=== PATIENT | male | born 1945 | race Caucasian/White ===

== ENCOUNTER 2016-05-19 14:46 | Inpatient (IN) | payer OTHER ==
[2016-05-19 15:15] LABS: BASO% 0.2 % (0.0-0.8); EOS# 0.01 X1000 (0.0-0.7); HEMATOCRIT 49.7 % (42.0-52.0); HEMOGLOBIN 17.2 g/dL (14.0-18.0); IMM GRAN# 0.11 X1000 (0.0-0.04); IMM GRAN% 0.4 % (0.0-0.5); LYMPH% 4.5 % (20.5-51.1); MANUAL DIFF NEEDED? NO; MCH 28.7 PG (27-31); MCHC 34.6 g/dL (33-37); MCV 82.8 FL (81-99); MONO# 1.73 X1000 (0.11-0.59); MPV 10.8 FL (7.4-10.4); NEUT% 87.9 % (42.2-75.2); PLT 275 X1000 (130-400)
[2016-05-19 15:35] LABS: ALBUMIN 3.4 g/dL (3.5-5.0); CALCIUM 10.3 mg/dL (8.8-10.2); TOTAL BILIRUBIN 0.87 mg/dL (0.20-1.00); TOTAL PROTEIN 7.9 g/dL (6.3-8.3)
[2016-05-19 16:08] LABS: URINE CULTURE NEEDED? NO; URINE MICRO REVIEW NEEDED? NO; URINE SOURCE CLEAN CATCH
[2016-05-19 16:16] LABS: BILIRUBIN URINE NEGATIVE (NEGATIVE); BLOOD URINE NEGATIVE (NEGATIVE); COLOR YELLOW; GLUCOSE URINE >1000 mg/dL (NEGATIVE); LEUKOCYTES URINE NEGATIVE (NEGATIVE); NITRITE URINE NEGATIVE (NEGATIVE); PROTEIN URINE TRACE mg/dL (NEGATIVE); SP GRAVITY URINE 1.033; TURBIDITY URINE CLEAR (CLEAR); UROBILINOGEN URINE NORMAL (NORMAL)
[2016-05-19 16:17] LABS: UR EPITHELIAL CELLS <10 /HPF (<10); URINE BACTERIA NEGATIVE /HPF; URINE RBC <10 /HPF (<10); URINE WBC <10 /HPF (<10)
[2016-05-19] MEDS ORDERED: NS 1,000 ML IV ONE (17:49)
[2016-05-19] MEDS ORDERED: ZOFRAN IV ONE (17:50)
[2016-05-19] MEDS ORDERED: MORPHINE IV ONE (17:50)
[2016-05-19] MEDS ORDERED: HUMULIN R IV ONE (17:50)
--- NOTE | 2016-05-19 17:50 | PROVIDER DOCUMENTATION ---
HPI-Abdominal Pain/GI Problem - General Chief Complaint: Abdominal Pain Stated Complaint: n/v/d Time Seen by Provider: 05/19/16 17:28 Allergies/Adverse Reactions: Patient Allergies Allergy/AdvReac Type Severity Reaction Status Date / Time acetaminophen [From Lortab] Allergy Unknown Verified 05/19/16 18:19 hydrocodone bitartrate * Allergy Unknown Verified 05/19/16 18:19 [From Lortab] codeine AdvReac NAUSEA Verified 05/19/16 18:19 Home Medications: Home Medication List Medication Instructions Recorded Confirmed Last Taken Type Aspirin [Aspir-Low] 81 mg PO DAILY 05/19/16 05/19/16 05/18/16 20:00 History Docusate Sodium [Colace] 100 mg PO DAILY 05/19/16 05/19/16 05/18/16 20:00 History Metoprolol [Lopressor] 25 mg PO DAILY 05/19/16 05/19/16 05/18/16 20:00 History [place]-3 Fatty Acids/Fish Oil [Fish 1 each PO DAILY 05/19/16 05/19/16 05/18/16 20 :00 History Oil 1,000 mg Capsule] ROSUVAstatin [Crestor] 20 mg PO DAILY 05/19/16 05/19/16 05/18/16 20:00 History - History of Present Illness-ABD Nature of Presenting Problems: Pt states that for the last few days after having a viral illness with N/V/D he started having abd pain with "gas and bloating" until today he started having more and more abd distention. 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 He has CAD s/p CABG. He also has HTN, Hyperlipidema, and Dm type 2 that he does not treat. Review of Systems - Adult - REVIEW OF SYSTEMS - ADULT Constitutional: reports: no symptoms reported. denies: chills, fever, fatique, night sweats, weight gain Eyes: reports: no symptoms reported. denies: discharge, dry eyes, decreased vision, double vision, eye pain, redness Ears, Nose, Mouth & Throat: reports: no symptoms reported. denies: ear discharge, hearing loss, tinnitus, epistaxis, nose pain, loose teeth, hoarseness , throat swelling Cardiovascular: reports: no symptoms reported. denies: chest pain, edema, heart murmur, irregular heart rate, palpitations, poor circulation, syncope Respiratory: reports: no symptoms reported. denies: chronic cough, cough, dyspnea on exertion, excessive sputum production, hemoptysis, shortness of breath Gastrointestinal: reports: see HPI, abdominal pain, diarrhea, nausea, vomiting Genitourinary: reports: no symptoms reported. denies: dysuria, discharge, frequency, flank pain, hematuria, hesitency, incontinence, urinary retention, urgency Musculoskeletal: reports: no symptoms reported. denies: bone pain, back pain, frequent leg cramps, joint pain, muscle aches, muscle weakness, neck pain Integumentary: reports: no symptoms reported. denies: hives, itching, nail changes, rash, skin sores/ulcer, skin thickening Neurological: reports: no symptoms reported. denies: ataxia, dizziness/vertigo , headache/migraines, loss of balance, paresthesia, slurred speech, syncope, tremors Psychiatric: reports: no symptoms reported. denies: anxiety, alcohol/drug dependence, emotional problems, panic attacks, suicidal thoughts Endocrine: reports: no symptoms reported. denies: change in skin pigment, excessive sweating, goiter, heat intolerance, increased thirst, polyuria Hematologic/Lymphatic: reports: no symptoms reported. denies: blood clots, easy bruising, lymphedema, transfusions Allergic/Immunologic: reports: no symptoms reported. denies: allergic reactions , allergic rhinitis, asthma, food allergy, frequent infections, hay fever, hives , positive PPD, urticaria All Other Systems: Reviewed and Negative Past History - Adult - PAST MEDICAL HISTORY-ADULT Review of Records: reports: Old Records Reviewed, Nursing Assessment Review, Medications Reviewed, Social history reviewed & non-contributory. Major Childhood Illnesses: reports: denies history Cardiovascular: reports: CAD, HTN, hyperlipidemia Respiratory: reports: denies history Gastrointestinal: reports: denies history Obstetrical/Gynecological: reports: denies history Genitourinary: reports: denies history Musculoskeletal: reports: denies history Neurological: reports: denies history Endocrine/Immune: reports: Diabetes Diabetes Type: Type 2 Other Conditions: reports: denies history - PRIOR SURGERIES/PROCEDURES Surgical/Procedure History: reports: CABG - PRIOR HOSPITALIZATIONS Prior Hospitalizations: reports: none - IMMUNIZATION STATUS Childhood Immunizations: See Nurse Assessment Flu Vaccine: See Nurse Assessment - FAMILY HISTORY Family History: reviewed, not pertinent - SOCIAL HISTORY Smoking: denies Substance Use: none/never Alcohol Use Frequency: never Living Situation: family Physical Exam-General - PHYSICAL EXAM-ADULT Initial Vital Signs Reviewed: Yes - CONSTITUTIONAL General Appearance: alert, moderate distress - EYES Eyes: PERRL/EOMI, pink conjunctivae - HEAD, EARS, NOSE, MOUTH & THROAT HENMT: normocephalic/atraumatic, moist mucous membranes, normal ENT inspection - NECK Neck: non-tender, full range of motion, supple - RESPIRATORY Respiratory: chest non-tender, lungs clear, normal breath sounds - CARDIOVASCULAR Cardiovascular: normal peripheral pulses, regular rate, rhythm - GASTROINTESTINAL (ABDOMEN) Abdominal Exam: abnormal bowel sounds, distended, guarding, tenderness. 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, grossly normal - PSYCHIATRIC Psych/Mental Status: normal mood/affect, normal thought content, normal thought process, oriented x 3 Progress - PLAN OF CARE/RESULTS Progress/Plan/Lab Results: Laboratory Tests 05/19/16 05/19/16 05/19/16 14:54 14:54 14:54 WBC 24.54 H RBC 6.00 Hgb 17.2 Hct 49.7 MCV 82.8 MCH 28.7 MCHC 34.6 RDW Std Deviation 12.9 Plt Count 275 MPV 10.8 H Immature Gran % (Auto) 0.4 Neut % (Auto) 87.9 H Lymph % (Auto) 4.5 L Levy % (Auto) 7.0 Eos % (Auto) 0.0 Baso % (Auto) 0.2 Immature Gran # (Auto) 0.11 H Neut # (Auto) 21.55 H Lymph # (Auto) 1.10 L Levy # (Auto) 1.73 H Eos # (Auto) 0.01 Baso # (Auto) 0.04 Sodium 125 L Potassium 5.0 Chloride 83 L Carbon Dioxide 23 L Anion Gap 19 BUN 13 Creatinine 1.2 Estimated GFR/1.73 m2 60 BUN/Creatinine Ratio 11 Glucose 521 H* Calculated Osmolality 275 Calcium 10.3 H Total Bilirubin 0.87 AST 10 ALT 13 Alkaline Phosphatase 81 Total Protein 7.9 Albumin 3.4 L Globulin 4.5 Albumin/Globulin Ratio 0.8 Amylase 15 L Lipase 15 Plasma Lactate Urine Source Urine Color Urine Turbidity Urine pH Ur Specific [place] Urine Protein Ur Glucose (Stick) Ur Ketones (Stick) Urine Blood Urine Nitrite Urine Bilirubin Urobilinogen Dipstick Urine Leukocytes Urine WBC (Auto) Urine RBC (Auto) U Epithel Cells (Auto) Urine Bacteria (Auto) Acetone Level SMALL A 05/19/16 05/19/16 15:54 18:22 WBC RBC Hgb Hct MCV MCH MCHC RDW Std Deviation Plt Count MPV Immature Gran % (Auto) Neut % (Auto) Lymph % (Auto) Levy % (Auto) Eos % (Auto) Baso % (Auto) Immature Gran # (Auto) Neut # (Auto) Lymph # (Auto) Levy # (Auto) Eos # (Auto) Baso # (Auto) Sodium Potassium Chloride Carbon Dioxide Anion Gap BUN Creatinine Estimated GFR/1.73 m2 BUN/Creatinine Ratio Glucose Calculated Osmolality Calcium Total Bilirubin AST ALT Alkaline Phosphatase Total Protein Albumin Globulin Albumin/Globulin Ratio Amylase Lipase Plasma Lactate 2.0 Urine Source CLEAN CATCH Urine Color YELLOW Urine Turbidity CLEAR Urine pH 5.0 Ur Specific [place] 1.033 Urine Protein TRACE A Ur Glucose (Stick) >1000 A Ur Ketones (Stick) 20 A Urine Blood NEGATIVE Urine Nitrite NEGATIVE Urine Bilirubin NEGATIVE Urobilinogen Dipstick NORMAL Urine Leukocytes NEGATIVE Urine WBC (Auto) <10 Urine RBC (Auto) <10 U Epithel Cells (Auto) <10 Urine Bacteria (Auto) NEGATIVE Acetone Level Orders Category Date Time Status FSBS [Finger Stick Blood Sugar (ED)] DIRECTED Care 05/19/16 19:07 Active IV Insertion ORDERED Care 05/19/16 17:49 Active ABDOMEN/PELVIS W/CONTRAST [CT] Stat Exams 05/19/16 17:44 Ordered flat [FLAT/UPRIGHT ABD/1 VIEW CHEST] [RAD] Stat Exams 05/19/16 17:17 Draft ACETONE SERUM [CHEM] Stat Lab 05/19/16 14:54 Completed AMYLASE [CHEM] Stat Lab 05/19/16 14:54 Completed BLOOD CULTURE [BLDCUL] Stat Lab 05/19/16 18:20 Results CBC WITH ELECTRONIC DIFF [HEME] Stat Lab 05/19/16 14:54 Completed COMPREHENSIVE METABOLIC PANEL [CHEM] Stat Lab 05/19/16 14:54 Completed LACTATE, PLASMA [CHEM] Stat Lab 05/19/16 18:22 Completed LIPASE [CHEM] Stat Lab 05/19/16 14:54 Completed UA Reflex [URINALYSIS W/POSS RFLX CULT] [URINALYSIS] Lab 05/19/16 15:54 Completed Stat 0.9% Sodium Chloride Inj [Ns] 1,000 ml Med 05/19/16 17:49 Discontinued IV 999 mls/hr Insulin Human Regular [Humulin R] Med 05/19/16 17:50 Discontinued 8 unit IV NOW ONE Morphine Med 05/19/16 17:50 Discontinued 2 mg IV NOW ONE Ondansetron [Zofran] Med 05/19/16 17:50 Discontinued 4 mg IV NOW ONE Vital Signs - 24 hr 05/19/16 14:53 Temperature 97.6 F Pulse Rate 106 H Respiratory 18 Rate Blood Pressure 137/82 O2 Sat by Pulse 96 Oximetry - XRAY 1 XRAY Study: Chest, Abdomen XRAY Interpretation: chest nad, abd distened large bowel possible obstruction ( hcb) - CT/MRI 1 CT Study: Abdomen Impression: Abnormal, See EMR Report CT Results: mutilple liver masses, choelithisis, sigmoid mass, sigmoid perf (rad ) - CONSULTS/PCP/HOSPITALIST Notification #1 *Consult/PCP/Hospitalist*: hui Time Discussed: 20:31 Consult Disposition: Will see in ED, Admit #2 Consult: dr salgado Time Discussed: 20:03 (discuss masses with family and see if they want to have surgery. Admit to hospitalists ) Reason/Comments: spoke to dr salgado again at 2015 patient would like surgery Consult Disposition: other Departure - Departure Time of Disposition Order: 19:36 DIAGNOSIS: SBO (small bowel obstruction), Liver mass, Bowel perforation Cholelithiasis Qualifiers: Cholelithiasis location: gallbladder Cholecystitis presence: without cholecystitis Biliary obstruction: without biliary obstruction Qualified Code(s) : K80.20 - Calculus of gallbladder without cholecystitis without obstruction Disposition: ADMITTED INPATIENT 09 Certified Medical Emergency: Emergent Condition: Good Additional Instructions: ED Follow Up Instructions: You have been treated by a care provider in the Emergency Department. These instructions are being provided to you so you can have an understanding of how to care for yourself upon discharge. Upon discharge from the Emergency Department, you are responsible for making arrangements for follow-up care by a physician of your choice. Take all prescribed medications as directed. Return to the Emergency Department immediately for any new or worsening symptoms. You may call the Physician Referral phone number at [phone] to obtain a list of Physicians who are taking new patients. ED Follow Up Instructions: You have been treated by a care provider in the Emergency Department. These instructions are being provided to you so you can have an understanding of how to care for yourself upon discharge. Upon discharge from the Emergency Department, you are responsible for making arrangements for follow-up care by a physician of your choice. Take all prescribed medications as directed. Return to the Emergency Department immediately for any new or worsening symptoms. You may call the Physician Referral phone number at [phone] to obtain a list of Physicians who are taking new patients. Referrals: Celena Nichols [Primary Care Provider] - Attestation - Physician/ JASON Attestation Patient care was provided by Advanced Practice Provider:: Yes Advanced Practice Provider:: Selvin Temple Advanced Practice Provider documentation review:: The Mid-level provider documentation, treatment plan and medical decision making was reviewed by the physician who agrees with all treatment and medical decision making by the MLP.
--- NOTE | 2016-05-19 19:27 | Diag Imaging Result Document ---
PROCEDURE NAME: FLAT/UPRIGHT ABD/1 VIEW CHEST - 05/19/2016 FLAT AND UPRIGHT ABDOMEN: FINDINGS: There is a gaseous dilatation of small bowel loops in the left upper quadrant. There is gas and stool in the descending colon. There is no evidence of organomegaly or mass. IMPRESSION: Ileus versus small-bowel obstruction. PA CHEST: FINDINGS: There are sternotomy wires. There is no evidence of acute cardiac or pulmonary disease. There are no previous studies. IMPRESSION: No evidence of acute disease.
[2016-05-19] MEDS ORDERED: ZOSYN 3.375 GM/NS 50 ML IV ONE (19:47)
[2016-05-19] MEDS ORDERED: FLAGYL 500 MG/NS 100 ML IV ONE (19:47)
[2016-05-19] MEDS ORDERED: MORPHINE IV PRN (20:30)
[2016-05-19] MEDS: HUMALOG SUBQ SCH (21:25)
[2016-05-20] MEDS: HUMALOG SUBQ SCH ×6 (00:30→20:19)
[2016-05-20] MEDS ORDERED: NS 1,000 ML IV ONE (01:11)
[2016-05-20] MEDS ORDERED: PROTONIX IV SCH (01:15)
[2016-05-20] MEDS ORDERED: TYLENOL PO PRN (02:13)
[2016-05-20 03:45] LABS: HEMOGLOBIN A1C 10.8 % (4.8-6.0)
[2016-05-20 04:06] LABS: INR 1.18; PROTIME 12.5 Seconds (9.2-11.7)
[2016-05-20] MEDS: ZOSYN 3.375 GM/NS 50 ML IV SCH ×4 (05:27→20:19)
--- NOTE | 2016-05-20 05:54 | HISTORY AND PHYSICAL ---
PRIMARY CARE PROVIDER: Dr. Celena Nichols. CHIEF COMPLAINT: Abdominal pain. HISTORY OF PRESENT ILLNESS: Mr. Kelly is a 70-year-old male who has a past medical history of diabetes mellitus type 2, hypertension, and coronary artery disease status post coronary artery bypass graft. The patient and his , who is at bedside, report that on he began having abdominal pain which was accompanied by nausea, vomiting, and diarrhea. She reports that he has had a few episodes of vomiting each day since, though only had diarrhea on and has not had any further episodes of this or any bowel movements since then. The patient denies any hematemesis or melena. The patient denies any body aches or chills, though did report fever earlier in the day on Saturday. The patient also complains of indigestion. He also states that it is difficult for him to take a deep breath due to his abdominal pain and distention. He denies any headache, dizziness, chest pain, dysuria or urinary frequency, or pain, numbness or tingling in his extremities. The patient reports that he did have cardiac stents placed in 2003 and then underwent a coronary artery bypass graft in 2011. 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 Garcia at [facility], though the patient reports that he probably has not seen him since 2014, and that Dr. Nichols at this time has been writing his prescription medications. Upon evaluation in the ER, the patient was found to have abdominal pain and a distended abdomen which had generalized tenderness to the touch. He had an elevated white blood cell count of 24.54. He was also found to have an elevated blood glucose level of 521. A CT abdomen and pelvis was performed which did show stricture and probable mucosal mass in the sigmoid colon. There were paracecal abscesses and a perforation in the right lower quadrant which is possibly the sigmoid colon. There is also a partial small bowel obstruction as well as multiple liver masses. Dr. Funes with Surgery was consulted by MONICA Babin, in the ER, and he does plan to take the patient for surgery in the morning. REVIEW OF SYSTEMS: A 14-point review of systems was conducted with the patient and all were negative except for pertinent positives mentioned in the above HPI. PAST MEDICAL HISTORY: 1. Coronary artery disease status post coronary artery bypass graft in 2011. The patient last followed up with his propeller tester, Dr. Garcia at [facility], in 2014. 2. Hypertension. 3. Diabetes mellitus type 2. 4. Dyslipidemia. PAST SURGICAL HISTORY: 1. Cardiac stent placement in 2003. 2. Coronary artery bypass graft in 2011. 3. Left foot surgery in 2008. 4. Right carotid endarterectomy. 5. Bilateral cataract surgery. SOCIAL HISTORY: The patient is a former smoker. He reports that he smoked 1 pack per day for approximately 27 years though quit smoking 28 years ago. The patient did report that he did occasionally drink alcohol in the past, though has not had any alcohol in 28 years. He denies any illicit drug use. He lives at home with his who is present at bedside. FAMILY HISTORY: Positive for prostate cancer in his father, lung cancer in his mother, lung cancer in his brother. He has a sister who has a history of dementia. He also reports that all of his siblings have diabetes mellitus as well. ALLERGIES: The patient reports allergies to hydrocodone and codeine. HOME MEDICATIONS: 1. Aspirin 81 mg p.o. daily. 2. Colace 100 mg p.o. daily. 3. Metoprolol 25 mg p.o. daily. 4. [place] 3 fatty acids, fish oils 1000 mg capsule 1 p.o. daily. 5. Crestor 20 mg p.o. daily. DIAGNOSTIC DATA AND LABORATORY RESULTS: White blood cell count 24.54, hemoglobin 17.2, hematocrit 49.7, platelet count 275. Sodium 125, potassium 5, chloride 83, bicarb 23, anion gap 19, BUN 13, creatinine 1.2, GFR 60, glucose 521, calcium 10.3. Liver function tests are within normal limits. Amylase 15, lipase 15. Plasma lactate 2. Serum acetone did have a small amount noted. Urinalysis was obtained via clean catch, was positive for trace protein, greater than 1000 glucose, and ketones. It was negative for blood, nitrites, leukocytes, white blood cells or bacteria. Flat and upright abdomen with 1-view chest showed ileus versus small bowel obstruction. Chest showed no evidence of acute disease. CT abdomen and pelvis showed multiple liver masses, stricture, and probable mucosal mass in the sigmoid, paracecal abscesses. There is also perforation of the bowel in the right lower quadrant. This is possibly the sigmoid colon. Noted also that appendicitis was doubtful and just may be related to adjacent inflammation. There was also noted a small bowel obstruction due to inflammatory changes around the distal ileum. Pending diagnostic studies at this time are blood cultures, EKG, PT, PTT, hemoglobin A1c, and type and screen. PHYSICAL EXAMINATION: VITAL SIGNS: Temperature 97.6. Heart rate 103. Respirations 20. Blood pressure is 133/83. Oxygen saturation is 96% nasal cannula at 2 L. GENERAL: The patient is a well-nourished, well-developed, pleasant, 70-year-old male who is resting in the ER stretcher. He was in no acute distress. He was awake and alert, able to answer all questions appropriately. HEENT: Head is atraumatic, normocephalic. Pupils are equal, round, reactive to light, 3 mm bilaterally, and brisk. Conjunctivae pink. Oral mucosa is slightly dry. Oropharynx is clear. NECK: Supple. Trachea midline. No JVD noted. No carotid bruits noted upon auscultation bilaterally. CARDIOVASCULAR: Normal S1, S2. No murmurs, gallops or rubs appreciated. Regular rate and rhythm. PULMONARY: The patient has symmetrical chest expansion bilaterally. Lung sounds are clear bilaterally in full lung velasquez. ABDOMEN: The abdomen is firm, distended, and the patient reports generalized tenderness upon palpation and even with very light touch such as placing a stethoscope on his abdomen. Bowel sounds were present though were hypoactive. EXTREMITIES: No cyanosis, clubbing or edema noted. Pulse, motor and sensory were intact in all extremities as well. Pedal pulses as well as radial pulses were 3+ bilaterally. INTEGUMENTARY: The patient's skin is pink, warm, dry, and intact. Capillary refill was less than 3. NEUROLOGIC: Patient alert and oriented to person, place, time and situation. Cranial nerves II through XII are grossly intact. ASSESSMENT AND PLAN: 1. Sigmoid mass with perforation and paracecal abscesses. 2. Partial small bowel obstruction. 3. Multiple liver masses. For 1 through 3, we have consulted Dr. Funes with Surgery, and he does plan to take the patient for surgery in the morning. Blood cultures have been obtained. We will place the patient on Zosyn 3.375 g IV every 6 hours. An NG tube has been placed to low intermittent suction. The patient will remain n.p.o. We will provide the patient with gentle fluid resuscitation at 100 mL of normal saline per hour. He did previously receive a 1 L normal saline bolus in the ER. We have also placed consults for Dr. Yoon with Oncology as well as Dr. Downing with Gastroenterology and appreciate their evaluation and further recommendations as well. We will continue to follow this patient very closely. 4. Leukocytosis. This is likely secondary to the patient's bowel perforation. We will continue with treatment as mentioned above and continue to follow. 5. Uncontrolled diabetes mellitus type 2. We have placed the patient in a sliding scale insulin Lispro. Will closely monitor his fingerstick blood sugars. We have placed an order for a hemoglobin A1c and are awaiting those results at this time. 6. Coronary artery disease status post coronary artery bypass graft. At this time we will hold the patient's aspirin due to him having surgery in the morning, though once he is able to tolerate oral medications, we will continue his aspirin as well as his Crestor and fish oil. 7. Hypertension. Will continue the patient's metoprolol 25 mg p.o. daily. Will continue to follow. The patient will be placed in the ICU with telemetry. He will have vital signs per ICU protocol. We will do strict intake and output every 8 hours. DVT prophylaxis will be provided with SCDs. GI prophylaxis with Protonix 40 mg IV every 24 hours. We will do every 4 hour neuro checks. Will repeat a CBC, CMP, and magnesium in the morning. Further orders and recommendations pending hospital course, diagnostic studies, and physician evaluation. CRITICAL CARE TIME WITH THIS PATIENT: Approximately 45 minutes. Dictated by TIARRA Duffy for Suhas Newell MD
[2016-05-20 06:10] LABS: BASO% 0.1 % (0.0-0.8); EOS# 0.07 X1000 (0.0-0.7); EOS% 0.4 % (0.0-10.0); HEMATOCRIT 45.8 % (42.0-52.0); HEMOGLOBIN 15.8 g/dL (14.0-18.0); IMM GRAN# 0.06 X1000 (0.0-0.04); IMM GRAN% 0.3 % (0.0-0.5); LYMPH# 0.75 X1000 (1.2-3.4); LYMPH% 4.2 % (20.5-51.1); MANUAL DIFF NEEDED? YES; MCH 28.7 PG (27-31); MCHC 34.5 g/dL (33-37); MCV 83.3 FL (81-99); MONO# 1.42 X1000 (0.11-0.59); MONO% 7.9 % (1.7-9.3); MPV 10.9 FL (7.4-10.4); NEUT% 87.1 % (42.2-75.2); PLT 224 X1000 (130-400)
[2016-05-20 06:46] LABS: AGAP 16; ALBUMIN 3.1 g/dL (3.5-5.0); ALKALINE PHOSPHATASE 73 U/L (32-122); BUN 14 mg/dL (8-22); CALCIUM 9.2 mg/dL (8.8-10.2); CHLORIDE 92 mmol/L (98-107); COSMO 271; GOT 10 U/L (10-34); GPT 9 U/L (10-44); POTASSIUM 3.8 mmol/L (3.5-5.1); SODIUM 131 mmol/L (136-145); TCO2 23 mmol/L (25-35); TOTAL BILIRUBIN 0.51 mg/dL (0.20-1.00)
[2016-05-20 07:08] LABS: URINE CULTURE NEEDED? NO; URINE SOURCE CATH
[2016-05-20 07:13] LABS: LYMPHS 3 % (21-51); MONO 2 % (1-9)
[2016-05-20] MEDS ORDERED: LABETALOL IV PRN (07:41)
[2016-05-20] MEDS ORDERED: SODIUM CHLORIDE 0.9% INJ SCH (07:45)
--- NOTE | 2016-05-20 07:48 | CONSULTATION ---
DATE OF CONSULTATION: 05/20/2016 REQUESTING PHYSICIAN: Emergency department consult concerning colon cancer with possible perforation. HISTORY OF PRESENT ILLNESS: This is a 70-year-old male who had been feeling under the weather for the last several days. Thought he had a viral illness with nausea, vomiting, and diarrhea. Started developing abdominal pain with gas and bloating. The abdomen became more distended and more tender. He reported it as his bilateral lower quadrants and intense in severity. He came into the emergency department and had a CT scan done that showed potential for perforated colon cancer with metastatic lesions to the liver. There is a significant amount of inflammation in the right lower quadrant. He has also noticed that his blood glucose was in the 500s. Given this, he had he was admitted by the hospitalist service. Resuscitation had been started to correct his hyperglycemia. I was asked to evaluate the patient given his findings on CT scan and physical exam. The patient is now still reporting tenderness in the bilateral lower quadrants. It appears that the right is more intense than the left. His blood sugar has improved since last night. It is now in the 200s. PAST MEDICAL HISTORY: Includes hypertension, hyperlipidemia, diabetes mellitus type 2, coronary artery disease. PAST SURGICAL HISTORY: Includes coronary artery bypass. HOME MEDICATIONS: Include aspirin, Colace, Lopressor, fish oil, Crestor. ALLERGIES: Include Tylenol, Lortab, codeine. SOCIAL HISTORY: Denies smoking, alcohol, or illicit drugs. FAMILY HISTORY: Reviewed with the patient and noncontributory. REVIEW OF SYSTEMS: A full 10 point review of systems obtained. Negative except as specified in the HPI. PHYSICAL EXAMINATION: Vital Signs: The patient is currently afebrile. Temperature 97.5 degrees, pulse is mildly tachycardic at 101, respiratory rate nonlabored at 20, blood pressure 144/87, O2 saturation 97% on 3 L nasal cannula. General: No acute distress but appears uncomfortable, male, looks stated age. HEENT: Normocephalic, atraumatic. Pupils equal, round, reactive to light. Mucous membranes moist. Oropharynx benign. Neck: Supple. Trachea midline. Cardiovascular: Regular rate and rhythm except mildly tachycardic. Lungs: Grossly clear. Abdomen: Mildly distended. Tender to palpation bilateral lower quadrants with some rebound tenderness. Localized peritonitis in the bilateral lower quadrants. It appears the right side is more prominent than the left. Extremities: Moves all extremities well. Neurologic: Grossly intact. Skin: No signs of jaundice. Vascular: All extremities perfused. LABORATORY: White blood cell count is 24.5, hematocrit is 49.7, platelet count 275,000. INR is 1.18. His most recent blood sugar on fingerstick was in the 200s. His sodium was 125, chloride is 83, bicarb 23, BUN 13, creatinine 1.2. A CEA is currently pending. He has repeat labs that are pending also at this time. CT scan independently reviewed and radiology report reviewed. There does appear to be lesions noted in the liver. The significance of these is unknown but there is a possibility these represent metastatic disease. There also appears to be a potential for sigmoid mass with sigmoid perforation per the radiology report. There is a dense inflammatory process occurring in the right lower quadrant. There appears to be diverticulosis present in the sigmoid colon. ASSESSMENT AND PLAN: This is a 70-year-old male with abdominal pain and potential for perforated metastatic cancer. 1. Multiple medical comorbidities. At this time patient's blood glucose has been improved. He is still undergoing resuscitation. His hyperglycemia has improved from 500 to 200 which is a more acceptable range for potential surgery. He is being managed by the hospitalist service. His repeat labs are pending but we will plan on surgical intervention this morning. 2. Possible perforated metastatic colon cancer. At this time patient has never had a colonoscopy and he has a CEA level that is pending. Given his physical exam findings will likely need surgical intervention. Discussed that with the family. Discussed that we could likely not place his intestines back together and that he would likely require an ostomy. This was discussed with the family and they voiced understanding. We will plan on surgical intervention. All of this was discussed with the family.
[2016-05-20 08:09] LABS: BILIRUBIN URINE NEGATIVE (NEGATIVE); BLOOD URINE TRACE (NEGATIVE); COLOR YELLOW; GLUCOSE URINE >1000 mg/dL (NEGATIVE); LEUKOCYTES URINE NEGATIVE (NEGATIVE); NITRITE URINE NEGATIVE (NEGATIVE); PH URINE 5.5; PROTEIN URINE 70 mg/dL (NEGATIVE); SP GRAVITY URINE 1.045; TURBIDITY URINE CLEAR (CLEAR); URINE MICRO REVIEW NEEDED? YES; UROBILINOGEN URINE NORMAL (NORMAL)
[2016-05-20 08:34] LABS: UR EPITHELIAL CELLS <10 /HPF (<10); URINE BACTERIA NEGATIVE /HPF; URINE RBC <10 /HPF (<10); URINE WBC <10 /HPF (<10)
[2016-05-20 08:36] LABS: URINE CASTS NONE SEEN; URINE CRYSTALS NONE SEEN; URINE SMALL ROUND CELLS NONE SEEN
[2016-05-20] MEDS ORDERED: LOPRESSOR PO SCH (09:00)
--- NOTE | 2016-05-20 10:06 | Diag Imaging Result Document ---
PROCEDURE NAME: CHEST/ABD TUBE PLACEMENT - 05/20/2016 AP PORTABLE CHEST AND ABDOMEN FOR NG TUBE PLACEMENT, 05/20/2016 AT 0215 HOURS: FINDINGS: The NG tube tip is in the left upper quadrant presumably in the fundus of the stomach. There are several loops of distended small bowel in the left mid and upper abdomen. The stomach is not distended. The degree of gaseous dilatation of the proximal small bowel has diminished somewhat since the previous study of 05/19/2016. IMPRESSION: NG tube in stomach.
[2016-05-20] MEDS ORDERED: MERREM 1 GM in NS 50 ML IV SCH (11:00)
--- NOTE | 2016-05-20 11:08 | Diag Imaging Result Document ---
PROCEDURE NAME: ABDOMEN/PELVIS W/CONTRAST - 05/19/2016 CT OF THE ABDOMEN WITH INTRAVENOUS CONTRAST: FINDINGS: There are multiple subcentimeter stones in the gallbladder. There are multiple masses in the liver with enhancement in their margins and possibly some central necrosis. This is particularly evident in one of the masses in the inferior right lobe where there is some dimpling of the surface of the liver. There is a mass in the left lobe which exceeds 4.1 cm in diameter. There are calcifications in the proximal renal arteries and superior mesenteric artery. There is no evidence of significant aneurysm and otherwise the mesenteric vessels are patent. There are multiple cortical cysts in both kidneys. There is no evidence of hydronephrosis. There may be small caliceal stones in the lower portions of both collecting systems. The adrenal glands are not enlarged. The pancreas is unremarkable in appearance. The spleen is not enlarged. There is some stool throughout the colon. There are multiple loops of small bowel proximally which are distended with gas and fluid. There is a 12-mm aortocaval node on image 68 of the portal venous series. CT OF THE PELVIS WITH INTRAVENOUS CONTRAST: FINDINGS: There are stranding inflammatory changes surrounding the cecum with some small amounts of fluid in the lower pericolic gutter. There is a fluid collection seen lateral to the cecum which is fairly homogeneous in appearance with a CT density of 17 Hounsfield units measuring 2.5 cm in diameter. The appendix is slightly over 7 mm in diameter distally. There is a collection of gas and fluid present inferomedial to the cecum measuring at least 4.3 cm transversely with a short axis dimension of 17 mm. The distal small bowel is normal in caliber. The proximity of the abscesses to the distal ileum is probably responsible for focal ileus producing the dilatation of the more proximal jejunal loops. There is diverticulosis in the sigmoid colon. The possibility of diverticulitis cannot be entirely excluded, however, there is an area of apparent mucosal thickening best seen between images 115 and 122 which is highly suspicious for mucosal thickening and neoplastic disease particularly in view of findings in the liver. The urinary bladder is somewhat distended. There is free fluid in the rectovesical pouch. This is relatively low in CT density being less than 12 Hounsfield units. There are some spondylotic changes present in the lumbar and thoracic spine. There has been sternotomy. IMPRESSION: 1. Metastatic disease in the liver. 2. Abscesses in the area around the cecum as described. The possibility of appendicitis cannot be entirely excluded, however, it is more likely that this is produced by focal perforation of the distal sigmoid mass. 3. Cholelithiasis.
[2016-05-20] MEDS ORDERED: NS 1,000 ML IV SCH (11:30)
[2016-05-20] MEDS ORDERED: NARCAN IV PRN (11:43)
[2016-05-20] MEDS: MORPHINE PCA ONE ×2 (11:50→11:54)
[2016-05-20] MEDS: LR 1,000 ML IV SCH ×3 (12:12→20:18)
[2016-05-20] MEDS: PROTONIX IV SCH (12:23)
--- NOTE | 2016-05-20 17:27 | CONSULTATION ---
DATE OF CONSULTATION: 05/20/2016 REQUESTING PHYSICIAN: Patient seen in consultation at the request of Dr. Timoteo Funes. REASON FOR CONSULTATION: Metastatic colorectal cancer. HPI: This is a 70 -year-old gentleman who presented to the emergency room with abdominal pain approximately 3-4 days duration accompanied by nausea, vomiting and diarrhea. Abdomen was notably more distended and he was admitted to the emergency room where he was found to have an area of suspected perforation. He was taken to the operating room and underwent exploratory laparotomy followed by complete colectomy and liver biopsy with end ileostomy placement earlier this morning by Dr. Funes. PAST MEDICAL HISTORY: Significant for coronary artery disease, hypertension, diabetes, hyperlipidemia, carotid artery disease, cataracts. PAST SURGICAL HISTORY: Cardiac stent 2003, coronary artery bypass grafting 2011, right carotid endarterectomy, bilateral cataracts and left foot surgery 2008. SOCIAL HISTORY: One pack per day for 25 years. Quit smoking more than 25 years ago. Occasional alcohol but none more than 25 years. Lives with his . Denies illicit drug use. FAMILY MEDICAL HISTORY: Dad with prostate cancer, mom with lung cancer, brother with lung cancer, sister with dementia, positive family history for diabetes. ALLERGIES AND MEDICATIONS: Reviewed per the chart. REVIEW OF SYSTEMS: Difficult to obtain. Patient sedated from recent procedure. Obtained via the chart and his . PHYSICAL EXAMINATION: Vital signs: At the time of consultation temperature 97.5 degrees, pulse 102, respiratory rate 16, O2 saturation 95% on 2 L, blood pressure 165/93. General: This is a elderly man in no acute distress. ENT: NG tube is in place. Sclerae anicteric. Oropharynx is dry. Cardiovascular: Tachycardic but regular rhythm. Normal S1, S2. No murmurs, rubs, or gallops. Pulmonary: Lungs clear auscultation bilaterally without wheezes, rales, rhonchi . GI: Abdomen soft, nontender, moderately distended with bandage in place. Extremities: No clubbing, cyanosis, edema 2+ pulses x4. Neuro: Patient is alert and oriented to name, responds to voice and touch but is groggy postoperative stay. LABORATORY DATA: White count 17.96, hemoglobin 15.8, platelet count 224,000 with 87 neutrophils, 4% lymphocytes, 8% monocytes. Sodium 131, potassium 3.8, chloride 92, bicarb 23, BUN 14, creatinine 0.7, glucose 244, calcium 9.2, total bilirubin 0.51, AST 10, ALT 9, alkaline phosphatase 73, albumin 3.1. Urinalysis positive glucose, trace blood, acetone small positive. INR 1.18. CEA pending. IMAGING: Abdominal x-ray on 05/19/2016 showed no acute disease. Abdominal and pelvic CT on 05/19/2016 showed multiple masses in the liver with enhancement in their margins and possibly some central necrosis. Mass in the left lobe of the liver exceeds 4.1 cm in diameter. Small caliceal stones in both collecting systems. Multiple loops of small bowel proximally which were distended with gas and fluid. There is a 12 mm aortocaval node. Stranding inflammatory changes are seen around the cecum with small amount of fluid in the lower pericolic gutter. There is homogeneous fluid collection lateral to the cecum measuring 2.5 cm in diameter. There is collection of gas and fluid per the inferior medial to the cecum measuring at least 4.3 cm x 1.7 cm. The proximity of the abscess to the distal ileum was probably responsible for focal ileus producing the dilation of the more proximal jejunal loops. There is sigmoid colon diverticulosis. There is an area of apparent mucosal thickening highly suspicious for neoplastic disease as well. There is free fluid in the rectovesical pouch. Cholelithiasis. ASSESSMENT/PLAN: 1. Metastatic colorectal cancer: We will follow up on pathology and CEA results to confirm what is suspected to be metastatic liver disease from colorectal cancer primary. He is status post complete colectomy and end ileostomy placement and ostomy placement. Will discuss palliative chemotherapy once he recuperates from his recent surgery. 2. Diabetes: He will be monitored per hospitalist with close sugar control in the perioperative period. 3. Coronary artery disease: No evidence of cardiac issues currently. Monitor closely in the postoperative setting. 4. Hyponatremia: Likely related to his hyperglycemia. Monitor with treatment of his elevated blood sugars.
[2016-05-20] MEDS ORDERED: FENTANYL ONE ×2 (18:10→19:09)
[2016-05-20] MEDS ORDERED: DIPRIVAN 1% ONE (19:09)
[2016-05-21] MEDS: HUMALOG SUBQ SCH ×6 (00:33→20:13)
[2016-05-21] MEDS: PROTONIX IV SCH ×2 (00:34→13:54)
--- NOTE | 2016-05-21 02:36 | CONSULTATION ---
DATE OF CONSULTATION: 05/20/2016 CONCLUSION: The patient is status post colectomy and formation of an ostomy thought to be secondary to a perforated sigmoid colon cancer with intraabdominal abscesses and liver metastatic disease. RECOMMENDATIONS: I agree treating with Zosyn. I have discontinued meropenem. PRESENT ILLNESS: The patient was unable provide a history. No family member was present. The history was taken from a review of the chart. The patient had abdominal pain accompanied by nausea, vomiting and diarrhea. He also had vomiting. He eventually came to the hospital and now is status post surgery as mentioned above. The patient's laboratory studies thus far show a CBC with a white count of 17,960, hemoglobin 15.8 and platelet count 224,000. Creatinine is 0.7. GFR is greater than 60. Liver function studies are negative. The patient's urinalysis showed white cells but no bacteria. CAT scan of the abdomen showed a perforation of a probable sigmoid colon cancer with intraabdominal abscesses and probable metastatic cancer in the liver. REVIEW OF SYSTEMS: Could not be obtained from the patient. PAST MEDICAL HISTORY: Patient has coronary artery disease and is post coronary artery bypass grafting in 2011. He also has hypertension, diabetes mellitus, and hyperlipidemia. PAST SURGICAL HISTORY: Positive for placement of cardiac stents, coronary artery bypass grafting, left foot surgery, right carotid end arterectomy and bilateral cataracts surgery. SOCIAL HISTORY: The patient has a history of smoking and drinking many years ago but has been stopped approximately 27-28 years. He does not have any history of illicit drug use. He is and he lives at home with his . Both the patient and his had recently retired. HOME MEDICATIONS: Include he is on Crestor, omega-3 fatty acids, metoprolol, docusate and aspirin. ALLERGIES: The patient has drug allergies to acetaminophen, hydrocodone and codeine. FAMILY HISTORY: Positive for prostate cancer, lung cancer, dementia and diabetes. HOME MEDICATIONS: Include aspirin, Colace, metoprolol, omega-3 fatty acids and Crestor. PHYSICAL EXAMINATION: Vital Signs: Temperature is 98.1 degrees, pulse 102, respirations 17, blood pressure 151/87. General: This is ill-appearing elderly male. He is in no acute distress. HEAD, EYES, EARS, NOSE, AND THROAT: His eyes were closed. There was no drainage coming from his nose or ears. He did not open his mouth when I asked him to.Neck: No meningismus. Thorax: There is an increased AP diameter to the chest. Lungs: Clear to auscultation. Cardiovascular: Regular heart rate. Peripheral pulses were diminished. Abdomen: Soft but tender. An ostomy is in place. There is a large dressing on the abdomen. The dressing is intact. Neurologic: He is sleeping for the most part. He is somewhat arousable. He did follow request to move his arms and legs. There was no tremor. Integument: No rash noted. Thank you for the consult. [facility]
[2016-05-21] MEDS: ZOSYN 3.375 GM/NS 50 ML IV SCH ×4 (03:47→20:13)
[2016-05-21 04:30] LABS: ALLEN TEST YES; BE -0.7 mmoll (-3.0-3.0); BLOOD TYPE ARTERIAL; DRAW SITE R RADIAL; METHB 1.4 % (0.0-1.5); PCO2(98.6) 40 mmHg (35-45); PO2(98.6) 117 mmHg (60-100); SAMPLE BLOOD; SAO2 99.9 % (95.0-100.0); THB 16.2 g/dL (11.5-17.4); pH(98.6) 7.39 (7.35-7.45)
[2016-05-21 04:31] LABS: MODALITY CANNULA
--- NOTE | 2016-05-21 05:58 | EKG Report ---
Test Performed on : 05/20/2016 05:59:45 AM Test Reason : Sigmoid Mass w/perforation,Multiple Liver Masses Blood Pressure : / mmHG Vent. Rate : 101 BPM Atrial Rate : 101 BPM P-R Int : 170 ms QRS Dur : 084 ms QT Int : 338 ms P-R-T Axes : 059 018 101 degrees QTc Int : 438 ms Sinus tachycardia. Septal infarct , age undetermined Abnormal ECG No previous ECGs available Confirmed by Rubén HALL, Renato ([id number]) on 05/22/2016 9:30:58 PM
[2016-05-21] MEDS: LR 1,000 ML IV SCH ×5 (06:04→23:00)
--- NOTE | 2016-05-21 06:11 | PROGRESS NOTE ---
DATE: 05/21/2016 SUBJECTIVE: The patient has been confused through the night. He did have some issues with his morphine [employer] at a basal rate which was stopped. Discussed his care with the nurse. Besides his confusion, no major other issues reported. OBJECTIVE: Vital Signs: The patient has been afebrile. His heart rate has been in the low 1 teens. His respiratory rate is nonlabored. Blood pressure has remained stable. His O2 sats remained above 95. General: Exam in no acute distress but confused male and looks his stated age. Cardiovascular: Mildly tachycardic. Lungs: There are some coarse sounds noted. Abdomen: Mildly distended. Dressings in place. Ileostomy appears viable at this time. There is only serosanguineous output in the ostomy appliance. LENIN drain with serosanguineous output. LABORATORY: Currently pending. ASSESSMENT/PLAN: A 70-year-old male status post exploratory laparotomy with liver biopsy and total abdominal colectomy with end ileostomy for suspected perforated colon cancer. 1. Postoperative day #1. At this time, we will continue routine postoperative care. Will await return of function with his ileostomy before started on diet. Given the perforation, we will continue antibiotics as written. We will monitor closely. 2. Likely metastatic cancer. At this time, oncology has been consulted. We will likely need palliative chemotherapy once he has recovered. 3. Multiple medical comorbidities to be managed by the hospitalist service.
[2016-05-21 06:40] LABS: BASO% 0.2 % (0.0-0.8); EOS# 0.04 X1000 (0.0-0.7); EOS% 0.3 % (0.0-10.0); HEMATOCRIT 46.5 % (42.0-52.0); HEMOGLOBIN 16.1 g/dL (14.0-18.0); IMM GRAN# 0.05 X1000 (0.0-0.04); IMM GRAN% 0.4 % (0.0-0.5); LYMPH# 0.74 X1000 (1.2-3.4); LYMPH% 5.5 % (20.5-51.1); MANUAL DIFF NEEDED? YES; MCH 29.3 PG (27-31); MCHC 34.6 g/dL (33-37); MCV 84.7 FL (81-99); MONO# 1.92 X1000 (0.11-0.59); MONO% 14.3 % (1.7-9.3); MPV 11.1 FL (7.4-10.4); NEUT% 79.3 % (42.2-75.2); PLT 261 X1000 (130-400); RBC 5.49 XMIL (4.7-6.1)
[2016-05-21 06:54] LABS: AGAP 16; ALBUMIN 1.8 g/dL (3.5-5.0); ALKALINE PHOSPHATASE 54 U/L (32-122); BUN 14 mg/dL (8-22); CALCIUM 8.1 mg/dL (8.8-10.2); CHLORIDE 97 mmol/L (98-107); COSMO 274; GOT 13 U/L (10-34); GPT 8 U/L (10-44); MAGNESIUM 1.8 mg/dL (1.5-2.7); SODIUM 133 mmol/L (136-145); TCO2 20 mmol/L (25-35); TOTAL BILIRUBIN 0.43 mg/dL (0.20-1.00); TOTAL PROTEIN 5.3 g/dL (6.3-8.3)
[2016-05-21 07:21] LABS: BANDS 2 % (0-1); LYMPHS 7 % (21-51); MONO 12 % (1-9)
[2016-05-21] MEDS: HEPARIN SUBQ SCH ×2 (08:20→16:00)
--- NOTE | 2016-05-21 08:31 | Diag Imaging Result Document ---
PROCEDURE NAME: CHEST-PORTABLE - 05/21/2016 PORTABLE CHEST X-RAY, 05/21/2016: COMPARISON: 05/20/2016. FINDINGS: Stable nasogastric tube in the stomach. The lungs are clear and the heart size is normal. No pneumothorax or large effusion. IMPRESSION: No acute disease or complication.
[2016-05-21] MEDS ORDERED: OFIRMEV 1000 MG/ISOTONIC SOLN 100 ML ONE (08:55)
[2016-05-21] MEDS ORDERED: LR 5,000 ML ONE (08:55)
[2016-05-21] MEDS ORDERED: ROBINUL ONE (08:55)
[2016-05-21] MEDS ORDERED: NORCURON ONE (08:55)
[2016-05-21] MEDS ORDERED: CLAVE SECONDARY SET 11953 ONE (08:55)
[2016-05-21] MEDS ORDERED: ANESTHESIA PB SET 88 IN 5742 ONE (08:55)
[2016-05-21] MEDS ORDERED: NEOSTIGMINE ONE (08:55)
[2016-05-21] MEDS ORDERED: QUELICIN (DOSE) ONE (08:55)
[2016-05-21] MEDS ORDERED: XYLOCAINE-MPF 2% ONE (08:55)
--- NOTE | 2016-05-21 11:40 | PROGRESS NOTE ---
DATE: 05/21/2016 SUBJECTIVE: The patient has no focal complaints except for abdominal discomfort which is understandable. OBJECTIVE: Vital signs: Blood pressure 150/87, heart rate 110, respiratory rate 16, temperature 98.7 degrees, 98% on 3 L. Cardiovascular: Regular rate and rhythm. Pulmonary: Bilateral breath sounds. Clear to auscultation. GI: Soft, nontender, nondistended. Bowel sounds are positive. Extremities: No clubbing or cyanosis. Lymphatics: No peripheral edema. Neurological: Nonfocal. LABORATORY DATA: Electrolytes look okay except for phosphorous was low at 1.8. Magnesium looked okay. CEA level though is very elevated at 119. PROBLEM LIST: 1. Metastatic colon cancer with perforation. I think biopsies are still pending but with his CA level being elevated that is likely the mechanism. He is status post ileostomy postop day 1. Is doing okay. We will continue antibiotics. Surgery is following closely. 2. Metastatic colon cancer. Most likely stage IV. Oncology is following. A little bit more stable. I think we can do the rest of his staging workup, although it is felt like this is, again, already clinically metastatic. 3. Coronary artery disease status post coronary artery bypass graft. Appears to be stable. We will monitor his fluid intake very closely. 4. Hypophosphatemia. We will supplement and follow. 5. Diabetes. Still not under control. I am going to start low-dose Lantus and follow closely. Following his other subspecialty services.
[2016-05-21] MEDS ORDERED: SODIUM PHOSPHATE 40 MEQ in NS 250 ML IV ONE (12:00)
[2016-05-21] MEDS ORDERED: INSULIN PEN NEEDLES ONE (12:02)
[2016-05-21] MEDS: LANTUS SUBQ SCH (12:52)
[2016-05-21] MEDS: SODIUM CHLORIDE 0.9% INJ SCH (13:54)
--- NOTE | 2016-05-21 13:55 | OPERATIVE NOTE ---
PROCEDURE DATE: 05/20/2016 PREOPERATIVE DIAGNOSIS: Perforated metastatic sigmoid colon cancer. POSTOPERATIVE DIAGNOSIS: Perforated metastatic sigmoid colon cancer. PROCEDURES: 1. Exploratory laparotomy. 2. Open core liver biopsy. 3. Total abdominal colectomy with end ileostomy. SURGEON: Holland Funes MD. SOCIAL ECONOMIST: Dr. Freddie Mackey (Dr. Mackey anatomic pathology assistant with retraction mobilization and resection of the colon). ANESTHESIA: General tracheal. INTRAOPERATIVE FINDINGS: Multiple palpable liver lesions confirmed with what was noted on CT scan, 1 of which was biopsied. There appeared to be intensive inflammatory process occurring in the right lower quadrant with purulence noted. This may have represented a sigmoid colon cancer perforation versus cecal perforation secondary to obstruction. It was difficult to ascertain since both of these entities were very intimately attached to each other, the cecum was very inflamed, the right lower quadrant was very inflamed, the terminal ileum was very inflamed, and the appendix was very inflamed. There was also a dense inflammatory process along the right wall of the abdomen in the right lower quadrant. There also was an apple-core lesion in the sigmoid colon. COMPLICATIONS: None at the time of dictation. ESTIMATED BLOOD LOSS: 100 mL. SPECIMENS REMOVED: Liver biopsy in total abdominal colectomy. DRAINS: A 19-Khmer Zeke drain left in pelvis and right lower quadrant. BRIEF HISTORY: The patient is a 70-year-old male presenting with abdominal pain. He had a CT scan that showed concern for perforated metastatic colon cancer. He had to be resuscitated through the course of the night given his blood sugar being 500 upon presentation. His clinical condition still had peritonitis on exam. It was felt that the patient would benefit from exploratory laparotomy with liver biopsy. This was discussed with the family. All questions were answered. Consent was obtained. DESCRIPTION OF PROCEDURE: After informed consent was obtained, patient brought to the operative theatre, transferred to the operative table, and placed in the supine position. General tracheal anesthesia was then performed without complication. A formal time-out was then performed confirming patient, date, procedure. All were in agreement. At that time, attention was given to the abdomen. A standard midline incision was made. Upon entering the cavity of the abdomen we found a dense inflammatory process in the right lower quadrant. There was a significant amount of adhesions and fibrinous exudate in the area in the right lower quadrant. Used blunt dissection to free up all the surrounding bowel. The cecum once we were able to identify it had a dense inflammatory process. The appendix looked very irritated. The terminal ileum looked very irritated. In close proximity to this was the large palpable sigmoid mass. It was hard to tell if the perforation occurred from the sigmoid mass of the cecum secondary to obstruction but regardless, there was a dense inflammatory process in the right lower quadrant. There was also a thickened peritoneum near this area which is hard to determine if this was either a peritoneal implant versus inflammatory tissue. We did palpate multiple lesions in the liver. We took a core biopsy of one that was near the gallbladder because it was the most readily visualized and easiest to get a biopsy of. We then turned our attention to the colon. At this time I asked Dr. Freddie Mackey to enter into the case. Given the palpable lesion in the sigmoid colon and the dense inflammatory process in the right lower quadrant we felt as though 2 anastomoses were dangerous for the patient. Given the degree of inflammation we elected to perform a total abdominal colectomy. This was again because of the sigmoid colon mass which would require sigmoid colectomy and the irritated, potentially perforated cecum which would required right hemicolectomy. We elected, as previously stated, to do a total abdominal colectomy because of this. We mobilize both sides of the colon along the white line of Toldt, both the right and left. Mobilized the splenic flexure extensively. We mobilized the hepatic flexure. We did this with a combination of blunt dissection and electrocautery we preserved the ureters as best we could and then noticed the duodenum and preserved it in its entirety. We made a small window in the terminal ileum, fired a stapler across this, cross viable bowel for stapler. We then used the LigaSure to take down the mesentery of the colon in its entirety. We made a small window at the peritoneal reflection of the rectum which was distal to the sigmoid colon mass. We fired a stapler across there with good results. We then completed our total abdominal colectomy and removed the specimen. We maintained hemostasis with electrocautery, ligature, and suture ligation. At the completion of this total abdominal colectomy there is no active bleeding. The ureters appeared to be protected. The small bowel appeared to be protected. The duodenum appeared to be protected. We irrigated out the abdomen copiously. We tunneled a drain from the left lower quadrant to the suprapubic region in the right lower quadrant. Given the condensed purulence and contamination that was noted in the right lower quadrant during the initial part of the case. We turned our attention to creating an end ileostomy. We selected an area on the right lower quadrant that was at the lateral border of the rectus sheath. We made a window in a small circular incision in the skin, tunneled down to the fascia and made a small incision in the fascia. Increased its size to accommodate 2 fingerbreadths. Brought the terminal ileum up through this without kinking it. We then turned our attention to closing the abdomen after we irrigated it out copiously. We secured the drain in place before we closed. We closed the peritoneum with running 0 chromic. We then closed the fascia with running loop PDS. We closed the skin with mohsen. We then isolated the incision and mature our ostomy in the typical fashion with 3-0 Vicryl. I placed an ostomy appliance on. The patient tolerated the procedure well and was transferred back to the recovery room. He will remain in the ICU postoperatively. We will continue him on antibiotics. Will consult hematology/oncology.
--- NOTE | 2016-05-21 17:41 | PROGRESS NOTE ---
DATE: 05/21/2016 PRESENT ILLNESS: The patient is status post colectomy and formation of an ostomy secondary to what is probably a perforated sigmoid colon cancer with intraabdominal abscesses and liver metastatic disease. RECOMMENDATIONS: The patient is receiving Zosyn. PHYSICAL EXAMINATION: Vital Signs: Temperature is 97.8 degrees, pulse 106, respirations 17, blood pressure 150/78. General: This is a somewhat ill-appearing, elderly male, who is in no acute distress. Lungs: Clear to auscultation. Cardiovascular: Regular heart rate. Abdomen: Tender in the upper part of both quadrants. Patient's dressing is intact. The patient's colostomy is functional. LABORATORY AND X-RAY: There is no new x-ray. The patient's blood gases today show a pH of 7.39, a PO2 of 117 and a pCO2 of 40. Creatinine 0.7. GFR is greater than 60. Blood cultures are sterile. CBC shows that the white count has come down to 13,390, hemoglobin 16.1 and platelet count 261,000. ASSESSMENT AND PLAN: 1. The patient as mentioned above is status post colectomy for what is probably a perforated colon cancer. There are intra-abdominal abscesses and unfortunately there may be a metastatic tumor in the liver. The plan is to continue Zosyn as a single agent. 2. Patient's comorbidities are that unfortunately he appears to have colon cancer which perforated and also he appears to have liver metastatic disease. Patient also is a diabetic.
[2016-05-21] MEDS ORDERED: LR 500 ML IV ONE (23:59)
[2016-05-22] MEDS: HEPARIN SUBQ SCH ×3 (00:39→17:00)
[2016-05-22] MEDS: PROTONIX IV SCH ×2 (00:39→13:12)
[2016-05-22] MEDS: SODIUM CHLORIDE 0.9% INJ SCH ×2 (00:39→13:12)
[2016-05-22] MEDS: HUMALOG SUBQ SCH ×6 (00:45→20:09)
[2016-05-22] MEDS: CARDIZEM 100 MG/NS 100 ML IV SCH (00:51)
[2016-05-22] MEDS: ZOSYN 3.375 GM/NS 50 ML IV SCH ×5 (04:22→20:09)
[2016-05-22] MEDS: LR 1,000 ML IV SCH ×3 (04:22→17:00)
[2016-05-22 04:53] LABS: MANUAL DIFF NEEDED? NO
[2016-05-22 04:56] LABS: BASO% 0.2 % (0.0-0.8); EOS# 0.04 X1000 (0.0-0.7); EOS% 0.3 % (0.0-10.0); HEMATOCRIT 41.7 % (42.0-52.0); IMM GRAN# 0.05 X1000 (0.0-0.04); IMM GRAN% 0.4 % (0.0-0.5); LYMPH# 0.78 X1000 (1.2-3.4); LYMPH% 6.3 % (20.5-51.1); MCH 28.9 PG (27-31); MCHC 33.6 g/dL (33-37); MCV 86.2 FL (81-99); MONO# 1.62 X1000 (0.11-0.59); MONO% 13.1 % (1.7-9.3); MPV 9.9 FL (7.4-10.4); NEUT% 79.7 % (42.2-75.2); PLT 238 X1000 (130-400); RBC 4.84 XMIL (4.7-6.1)
[2016-05-22 05:12] LABS: AGAP 13; ALBUMIN 1.8 g/dL (3.5-5.0); ALKALINE PHOSPHATASE 49 U/L (32-122); BUN 11 mg/dL (8-22); CALCIUM 8.2 mg/dL (8.8-10.2); CHLORIDE 103 mmol/L (98-107); COSMO 285; GOT 12 U/L (10-34); GPT 9 U/L (10-44); MAGNESIUM 1.8 mg/dL (1.5-2.7); POTASSIUM 3.3 mmol/L (3.5-5.1); SODIUM 141 mmol/L (136-145); TCO2 25 mmol/L (25-35); TOTAL PROTEIN 5.1 g/dL (6.3-8.3)
--- NOTE | 2016-05-22 06:09 | EKG Report ---
Test Performed on : 05/21/2016 4:44:38 PM Test Reason : NO Order in [employer] Blood Pressure : / mmHG Vent. Rate : 110 BPM Atrial Rate : 110 BPM P-R Int : 154 ms QRS Dur : 080 ms QT Int : 298 ms P-R-T Axes : 054 015 110 degrees QTc Int : 403 ms Sinus tachycardia. Nonspecific ST and T wave abnormality Abnormal ECG When compared with ECG of 21-MAY-2016 16:43, (Unconfirmed) premature atrial complexes. are no longer present Confirmed by Renato Montana MD ([id number]) on 05/22/2016 9:48:21 PM
--- NOTE | 2016-05-22 06:12 | EKG Report ---
Test Performed on : 05/21/2016 11:39:50 PM Test Reason : No Order in [employer] Blood Pressure : / mmHG Vent. Rate : 166 BPM Atrial Rate : 174 BPM P-R Int : 000 ms QRS Dur : 080 ms QT Int : 254 ms P-R-T Axes : 000 003 212 degrees QTc Int : 422 ms Supraventricular tachycardia. vs. regular atrial fibrillation with RVR Possible Inferior infarct , age undetermined Abnormal ECG No previous ECGs available Confirmed by Renato Montana MD ([id number]) on 05/22/2016 9:50:42 PM
--- NOTE | 2016-05-22 08:00 | PROGRESS NOTE ---
DATE: 05/22/2016 SUBJECTIVE: The patient had multiple runs of supraventricular tachycardia through the night. Cardiology has been consulted. He has been started on a Cardizem drip. He has been asymptomatic during these episodes. Otherwise, no other major issues reported by the nursing staff. OBJECTIVE: Vital Signs: Patient has been afebrile. His pulse for the majority of the time is in the low 100s, but does have episodes where it gets higher when he has supraventricular tachycardia. His respiratory rate is an 18 and nonlabored. His blood pressure 133/60, O2 saturation 96%. General: No acute distress. Resting comfortably. Cardiovascular: Mildly tachycardic. Lungs: Some coarse sounds noted. Abdomen: Mildly distended. Dressing in place. Ileostomy appears to be viable at this time, just was serosanguineous output in the ostomy appliance. LENIN drain with serosanguineous output. LABORATORY: White blood cell count is 12, hematocrit 41, platelet count 238,000. Electrolytes reviewed, he has a low phosphorus of 1.6 and a potassium at 3.3. His albumin is low 1.8. ASSESSMENT/PLAN: A 70-year-old, male status post exploratory laparotomy with liver biopsy and total abdominal colectomy with end-ileostomy for suspected perforated colon cancer. 1. Postoperative day #2. At this time, we will continue routine postoperative care. We will await return of bowel function. Given his albumin, we will start him on Clinimix. 2. Likely metastatic cancer. At this time, Oncology has been consulted. We will defer treatment to them. 3. Supraventricular tachycardia. At this time, Cardiology is being consulted. We will wait for their recommendations. 4. Multiple medical comorbidities to be managed by the hospitalist service.
[2016-05-22] MEDS: LANTUS SUBQ SCH (08:25)
--- NOTE | 2016-05-22 09:29 | CONSULTATION ---
DATE OF CONSULTATION: 05/22/2016 INDICATION FOR CONSULTATION: A supraventricular tachycardia. HISTORY OF PRESENT ILLNESS: Mr. Kelly is a 70-year-old white male with a history of coronary disease and previous bypass performed in [place]. He normally follows with a physician in [place] for his cardiology issues. He presented with abdominal pain on the and was found to have a colonic mass. Since that time, he has had a colectomy, as well as an ostomy placed. He additionally had some masses noted in his liver. Biopsies were taken. Pathology is currently pending. Last night around 1130 hours or so, he had an episode of narrow complex tachycardia. He was started on a Cardizem drip and that converted over to sinus rhythm. Since that time, he has had no recurrence of symptoms. He denied any symptoms last night. He had no heart racing, no chest pain, no shortness of breath and has not had a history of arrhythmias in the past. Currently he is asymptomatic, except for some mild abdominal tenderness. He has an NG tube in place. He is taking ice chips by mouth and does not report any nausea. He has no chest pain presently. PAST MEDICAL HISTORY: 1. Coronary artery disease with history of bypass grafting presumably in [address] Rai in [place]. 2. Hypertension. 3. Type 2 diabetes. 4. Dyslipidemia. 5. History of colonic mass currently under evaluation presumed to be a colorectal cancer primary with mets to the liver. Again, that is currently under evaluation. SOCIAL HISTORY: Former smoker quit around 28 years ago. Patient is . No current alcohol. No illicit drug use. FAMILY HISTORY: Significant for prostate cancer in his father, lung cancer in his mother, lung cancer in a brother. REVIEW OF SYSTEMS: A 10 system review of systems is negative, except for those things mentioned in the HPI. PHYSICAL EXAMINATION: Vital Signs: He is afebrile. Heart rates on my examination were in the 80s. His most recent blood pressure is 101/72, but notably most of his systolics have been in the 130s to 150s. General: Generally he is in no acute distress. He is very pleasant. HEENT: Oropharynx is moist. Normal dentition. Eye examination reveals pink conjunctivae, white sclerae. Neck: Examination shows no obvious thyromegaly or thyroid tenderness. Cardiovascular: He is in a regular rate and rhythm. He has no obvious murmurs. He has no lower extremity edema. No carotid bruits. Chest: Exam is clear to auscultation bilaterally. No increased work of breathing. Abdomen: Soft. Mild diffuse tenderness to palpation. Ostomy is in place. No rebound or guarding. Skin Exam: Warm and dry throughout. There are not any rashes. Neurological: He is moving all extremities well. Cranial nerves 2 through 12 are intact without any sensation deficits. Psychiatric: Alert and oriented, pleasant. He has normal mood and affect. PERTINENT DATA: 1. EKG on the - at 0559 hours shows sinus rhythm, suggestion of possible inferior Q- waves, but again those are quite small. 2. EKG occurring on the at 1643 hours shows sinus rhythm, rate of 110 beats per minute. Again, no ischemic signs. 3. Following EKG on the at 2339 hours, it shows a narrow complex tachycardia, rate of 166 beats per minute, no clear P waves. There may be some retrograde P-waves noted in lead 2. The QRS complex looks fairly identical. There are some nonspecific ST changes noted. 4. EKG at 2341 hours is consistent with the ST-T changes. 5. Abdomen and pelvis CT was reviewed suggesting metastatic disease in the liver, abscesses in the area around the cecum, cholelithiasis as well. 6. Laboratory data shows white count 12.3, his hematocrit is 41.7, his platelet count is 238. Sodium is 141, potassium 3.3. His BUN is 11, creatinine 0.7. His magnesium level was 1.8. His albumin is 1.8 as well. ASSESSMENT: 1. Narrow complex supraventricular tachycardia suggestive of re-entrant arrhythmia. 2. Likely colorectal primary with metastases. 3. History of coronary disease with bypass grafting. PLAN: I would continue him on diltiazem right now as the patient continues to be n.p.o. except for ice chips. He is not taking oral medications. When he is able to take oral medications, I would likely recommend placing the patient back on his home metoprolol at 25 mg daily. Again, I would continue him on the diltiazem infusion; that seems to be controlling him quite well. I will check an echocardiogram as well as a TSH.
[2016-05-22] MEDS ORDERED: NS 250 ML ONE (10:41)
--- NOTE | 2016-05-22 11:04 | PROGRESS NOTE ---
DATE: 05/22/2016 SUBJECTIVE: The patient is complaining of feeling terrible. Still complaining of having a lot of abdominal pain. Also, complained having an no step off. The patient had an NG tube in place making him very uncomfortable, but he is awake, alert and oriented x3. His was at the bedside. All questions were invited and entertained. OBJECTIVE: Vital signs: Blood pressure 134/64, pulse of 102, respirations 22, temperature 99.2 degrees, sat of 96% on room air. General appearance: White male in moderate distress due to pain. HEENT: Anicteric sclerae, clear conjunctivae. Neck: Supple. No JVD. No bruits. Cardiovascular: S1, S2. Normal rate and rhythm. No murmur, rubs, or gallops. Pulmonary: Clear to auscultation bilaterally. GI: Abdomen is still distended. The suction bulb is still in place. Midline incision with dressing in place. No bleeding through noticed, but tender to palpation. Still no bowel sounds. Musculoskeletal: No clubbing, cyanosis, or edema. LABORATORY: White count 12.34, hemoglobin. 14.0, hematocrit of 41.7, platelets of 238. Chemistry: Sodium 141, potassium 3.3, chloride 103, bicarbonate 25, BUN 11, creatinine 0.7, glucose 117. ASSESSMENT AND PLAN: This is a 70-year-old white male, admitted to the hospital for abdominal pain and was found to have perforations and required bowel resection. 1. Bowel resections, exploratory laparotomy and liver biopsy. The patient has a colectomy and the ileostomy. Still having a lot of pain. No gas, no bowel movement yet. We will continue supportive care. We will come continue Zosyn for now. The patient is on Clinimix. Will place the PICC line since the patient has a very poor access. Liver biopsy is still pending. His CA-125 is highly elevated concerning for malignancy. 2. Diabetes type 2. We will continue sliding scale insulin. 3. Hypertension. Blood pressure is currently well controlled. 4. Diet. The patient is still on nothing by mouth. We will continue supportive care. Until his bowel movement and passing gas, he can have ice chips. His nasogastric tube suction is still hooked to low wall suction. TOTAL CRITICAL CARE TIME: 35 minutes.
[2016-05-22 11:33] LABS: INR 1.15; PROTIME 12.2 Seconds (9.2-11.7)
[2016-05-22] MEDS: CLINIMIX E 4.25%-5% SOLUTION 1,000 ML IV SCH (11:36)
--- NOTE | 2016-05-22 17:37 | ECHO REPORT ---
ORDER DATE: 05/22/2016 INTERPRETING PHYSICIAN: Dr. Ryan CLINICAL INDICATIONS: [id number] male, diabetes, hypertension, coronary heart disease. This study was done with injection of Definity. M-MODE MEASUREMENTS: Right ventricle: 3.1 cm. Left ventricle end diastole: 5.2 cm. Left ventricle end systole: 3.2 cm. Posterior wall: 0.9 cm. Interventricular septum: 0.9 cm. Left atrium: 3.6 cm. Aortic root: 3.5 cm. SUMMARY OF 2-DIMENSIONAL IMAGING: Study was technically difficult. Initially the views of the left ventricle suggested some hypokinesis of the septum. After injection of Definity with optimal opacification of the left ventricular chamber, the contractility of the left ventricle appears to be completely normal. Ejection fraction is estimated at 65%. Right ventricle appears to be mildly enlarged. Aortic valve looks normal. Color flow mapping unremarkable. Mitral valve looks normal. Color flow mapping unremarkable. The pulse wave Doppler of mitral inflow shows relatively normal E/A ratio. The patient is in sinus rhythm. Tissue Doppler of septal and lateral mitral anulus averages 10 cm. Pulse wave Doppler of pulmonary venous flow is normal. Diastolic function is normal. Tricuspid valve shows mild degree of regurgitation. The inferior vena cava could not be appreciated because the patient has just received abdominal surgery. Subcostal views were not available. The pulmonary systolic pressure might be anywhere from 29 to 34 mmHg. Pulmonic valve looks normal. Color flow mapping unremarkable. There is no pericardial effusion, masses, nor thrombus. SUMMARY: This echocardiographic study which was done with injection of Definity indicates excellent left ventricular systolic function, normal diastolic function, no valvular abnormalities. Pulmonary pressure probably is normal. Clinical correlation is recommended.
--- NOTE | 2016-05-22 17:53 | PROGRESS NOTE ---
DATE: 05/22/2016 PRESENT ILLNESS: Patient is status post colectomy and formation of a ostomy secondary to a probable perforated sigmoid colon cancer with intraabdominal abscesses and liver metastatic disease. RECOMMENDATIONS: I plan to continue with Zosyn postoperatively. PHYSICAL EXAMINATION: Vital Signs: Temperature is 98.7 degrees, pulse 88, respirations 14, blood pressure 127/67. General: This is a somewhat ill-appearing, elderly male. He is in no acute distress. Lungs: Clear to auscultation. Cardiovascular: Heart rate is regular. Abdomen: Soft. The dressing is intact. Colostomy is functional. LAB AND X-RAY: The CBC today shows a white count of 12,340, hemoglobin 14, and platelet count 238,000. Creatinine is 0.7. GFR is greater than 60. Liver function studies are normal. Unfortunately, the patient's CEA is very elevated at 119.5. ASSESSMENT AND PLAN: The patient, as mentioned above, has perforated colon with formation of abscesses. My plan would be to continue with Zosyn as a single agent in that clinically he is improving and his white count is coming down. The patient's main comorbidities include colon cancer with perforation and apparent spread to the liver. Patient also is diabetic.
[2016-05-23] MEDS: HUMALOG SUBQ SCH ×6 (00:08→20:11)
[2016-05-23] MEDS: HEPARIN SUBQ SCH ×3 (00:08→16:06)
[2016-05-23] MEDS: CARDIZEM 100 MG/NS 100 ML IV SCH (00:11)
[2016-05-23] MEDS: SODIUM CHLORIDE 0.9% INJ SCH ×2 (00:17→12:47)
[2016-05-23] MEDS: PROTONIX IV SCH ×2 (00:17→12:47)
[2016-05-23] MEDS: MORPHINE PCA IV PRN (00:18)
[2016-05-23] MEDS: LR 1,000 ML IV SCH ×3 (00:39→16:05)
[2016-05-23] MEDS: CLINIMIX E 4.25%-5% SOLUTION 1,000 ML IV SCH ×2 (02:46→16:06)
[2016-05-23] MEDS: ZOSYN 3.375 GM/NS 50 ML IV SCH ×4 (02:46→20:10)
[2016-05-23 06:28] LABS: BASO% 0.3 % (0.0-0.8); EOS# 0.16 X1000 (0.0-0.7); EOS% 1.6 % (0.0-10.0); HEMATOCRIT 40.1 % (42.0-52.0); HEMOGLOBIN 13.1 g/dL (14.0-18.0); IMM GRAN# 0.07 X1000 (0.0-0.04); IMM GRAN% 0.7 % (0.0-0.5); LYMPH# 1.03 X1000 (1.2-3.4); MANUAL DIFF NEEDED? YES; MCH 28.2 PG (27-31); MCHC 32.7 g/dL (33-37); MCV 86.2 FL (81-99); MONO# 1.12 X1000 (0.11-0.59); MONO% 10.9 % (1.7-9.3); MPV 10.3 FL (7.4-10.4); NEUT% 76.5 % (42.2-75.2); PLT 244 X1000 (130-400); RBC 4.65 XMIL (4.7-6.1)
[2016-05-23 06:46] LABS: BANDS 2 % (0-1); LYMPHS 12 % (21-51); MONO 8 % (1-9)
[2016-05-23 07:02] LABS: AGAP 13; ALBUMIN 1.7 g/dL (3.5-5.0); ALKALINE PHOSPHATASE 93 U/L (32-122); BUN 11 mg/dL (8-22); CALCIUM 8.2 mg/dL (8.8-10.2); CHLORIDE 98 mmol/L (98-107); COSMO 280; GOT 15 U/L (10-34); GPT 9 U/L (10-44); POTASSIUM 2.9 mmol/L (3.5-5.1); SODIUM 138 mmol/L (136-145); TCO2 27 mmol/L (25-35); TOTAL BILIRUBIN 0.47 mg/dL (0.20-1.00); TOTAL PROTEIN 5.1 g/dL (6.3-8.3)
[2016-05-23] MEDS ORDERED: POTASSIUM CHLORIDE 40 MEQ/SWI 100 ML IV ONE (07:54)
[2016-05-23] MEDS: LANTUS SUBQ SCH (08:20)
--- NOTE | 2016-05-23 08:38 | PROGRESS NOTE ---
DATE: 05/23/2016 SUBJECTIVE: The patient is doing well. No major issues reported by the nursing staff. His heart rate has improved. His Cardizem drip has just been put on standby. OBJECTIVE: Vital signs: The patient is currently afebrile. His vital signs have been stable. General: In no acute distress resting comfortably. Cardiovascular: Regular rate and rhythm. Lungs: Some coarse sounds noted bilaterally. Abdomen: Soft, mildly distended, dressing in place. Ileostomy appears to be viable with just serosanguineous output. LENIN drain with serosanguineous output. ASSESSMENT AND PLAN: A 70-year-old male status post exploratory laparotomy with liver biopsy and total abdominal colectomy with end ileostomy for suspected perforated colon cancer. 1. Postop day #3. At this time, will clamp his NG tube and start him on a clear liquid diet. He is still on Clinimix given his low albumin. 2. Likely metastatic cancer. At this time, Oncology is following. Will defer management to them. 3. Supraventricular tachycardia. At this time, appears to be improving. Cardiology is following. 4. Multiple medical comorbidities at this time being managed by the hospitalist service.
--- NOTE | 2016-05-23 09:05 | PROGRESS NOTE ---
DATE: 05/23/2016 SUBJECTIVE: The patient is feeling a little better today, complaining abdominal soreness. Still has not had passed any gas. He is much more comfortably today than he was yesterday. No acute event reported by the overnight staff. OBJECTIVE: Vital Signs: Blood pressure 129/69, pulse of 81, respirations 16, temperature 97.7 degrees, sat of 96% on 2 L. General Appearance: Well-developed, well-nourished, obese white male, in no acute distress. HEENT: NG tube in place. Anicteric sclerae. Clear conjunctivae. Neck: Supple. No jugular venous distention. No bruit. Cardiovascular: S1, S2. Normal rate and rhythm. No murmur, rubs, or gallops. Pulmonary: Clear to auscultation bilaterally. Gastrointestinal: Tender to palpation. No bowel sounds. The colostomy is noticed on the right side. Midline incision noticed. No bleeding through. Abdomen is still slightly distended. Extremities: SCD in place. LABORATORY: WBC 10.25, hemoglobin 13.1, hematocrit of 40.1, platelets of 244,000. Chemistry: Sodium 138, potassium 2.9, chloride 98, bicarb 27, BUN 11, creatinine 0.6, glucose of 189. ASSESSMENT AND PLAN: This is a 70-year-old white male, admitted to the hospital for perforated bowel, status post colectomy. 1. Intra-abdominal abscess, status post colectomy. The patient is on Zosyn. We will continue Zosyn for now. Culture still no growth so far. White count is trending down. He remained afebrile. Dr. Denney is following. Surgery is also following. 2. Liver mass. Biopsy is still pending. Concern for metastatic disease. 3. Diabetes type 2. We will continue sliding scale insulin. 4. Hypertension. The patient is on diltiazem drip for now. We will keep him on that until he is able to take p.o. and we will transition him back to his metoprolol. CODE STATUS: The patient is a full code. Deep vein thrombosis prophylaxis. The patient on heparin. Medications, laboratory, and radiology were reviewed.
--- NOTE | 2016-05-23 14:58 | PROGRESS NOTE ---
DATE: 05/23/2016 SUBJECTIVE: Mr. Kelly has no complaints today. No heart racing. No chest pain. His abdominal pain he reports is somewhat better. PHYSICAL EXAMINATION: He is afebrile. His heart rate is 82, blood pressure 137/68. General: He is no acute distress. Cardiovascular: He is in a regular rate and rhythm. Currently he is in sinus. No lower extremity edema. Chest: Exam is clear to auscultation bilaterally. No increased work of breathing. Abdomen: Soft, mild tenderness to palpation. Ostomy in place. Minimal bowel sounds were heard. Skin Exam: Warm and dry throughout. PERTINENT DATA: White count 10.2, hematocrit 40.1, platelet count 244,000. His sodium is 138, potassium is 2.9. His BUN is 11, creatinine 0.6. He has not had a magnesium level checked since yesterday at which point it was 1.8. ASSESSMENT: 1. Supraventricular tachycardia. 2. Colorectal cancer. PLAN: The patient is not taking pills as of yet but has been off the diltiazem since this morning secondary to some relative bradycardia. Presently, he is quite hypokalemic however the primary team has repleted him this morning. I will ensure that he has a magnesium level checked in the morning to re-evaluate that. When he is able to take oral medications we could certainly initiate a beta kevin on this patient for his SVT. Presently, I would not change his cardiac care.
--- NOTE | 2016-05-23 15:41 | PROGRESS NOTE ---
DATE: 05/23/2016 PRESENT ILLNESS: The patient has a perforated sigmoid colon cancer with intra-abdominal abscesses and liver metastatic disease. MEDICATIONS: The patient is on Zosyn as a single agent. PHYSICAL EXAMINATION: Vital Signs: Temperature is 97.9 degrees, pulse 82, respirations 18, blood pressure 137/68. General: This is an ill-appearing, elderly male. He is in no acute distress. In fact, now he is sleeping. Lungs clear to auscultation. Cardiovascular: Regular heart rate. Abdomen is soft. The patient's abdominal dressing is intact. The patient also has an ileostomy which is functioning well. LABORATORY DATA AND X-RAY: CBC today shows a white count of 10,250. Hemoglobin 13.1, and platelet count 244,000. Creatinine is 0.6. GFR is greater than 60. Blood cultures are sterile. ASSESSMENT AND PLAN: The patient has a perforated colon with intra-abdominal abscesses. Since the patient seems to be doing well clinically and his white blood cell count is dropping, I plan to continue Zosyn as a single agent. The patient's comorbidities include colon cancer with perforation and apparent spread to the liver. The patient also is a diabetic.
[2016-05-24] MEDS: CARDIZEM 100 MG/NS 100 ML IV SCH (00:50)
[2016-05-24] MEDS: PROTONIX IV SCH ×2 (00:50→13:08)
[2016-05-24] MEDS: SODIUM CHLORIDE 0.9% INJ SCH ×2 (00:50→13:08)
[2016-05-24] MEDS: HEPARIN SUBQ SCH ×3 (00:51→16:01)
[2016-05-24] MEDS: HUMALOG SUBQ SCH ×6 (00:51→20:00)
[2016-05-24] MEDS: LR 1,000 ML IV SCH ×4 (00:51→22:56)
[2016-05-24] MEDS: ZOSYN 3.375 GM/NS 50 ML IV SCH ×4 (02:25→20:01)
[2016-05-24 05:51] LABS: BASO% 1.6 % (0.0-0.8); EOS# 0.22 X1000 (0.0-0.7); EOS% 2.3 % (0.0-10.0); HEMATOCRIT 44.9 % (42.0-52.0); HEMOGLOBIN 15.1 g/dL (14.0-18.0); IMM GRAN# 0.17 X1000 (0.0-0.04); IMM GRAN% 1.8 % (0.0-0.5); LYMPH# 1.01 X1000 (1.2-3.4); LYMPH% 10.4 % (20.5-51.1); MANUAL DIFF NEEDED? YES; MCH 29.1 PG (27-31); MCHC 33.6 g/dL (33-37); MCV 86.5 FL (81-99); MONO# 1.15 X1000 (0.11-0.59); MONO% 11.9 % (1.7-9.3); PLT 231 X1000 (130-400); RBC 5.19 XMIL (4.7-6.1)
[2016-05-24 06:45] LABS: AGAP 11; ALBUMIN 1.4 g/dL (3.5-5.0); ALKALINE PHOSPHATASE 99 U/L (32-122); BUN 10 mg/dL (8-22); CHLORIDE 98 mmol/L (98-107); COSMO 271; GPT 7 U/L (10-44); MAGNESIUM 1.9 mg/dL (1.5-2.7); POTASSIUM 4.1 mmol/L (3.5-5.1); SODIUM 133 mmol/L (136-145); TCO2 24 mmol/L (25-35); TOTAL PROTEIN 5.7 g/dL (6.3-8.3)
[2016-05-24 06:48] LABS: CALCIUM 8.5 mg/dL (8.8-10.2); GOT 24 U/L (10-34); TOTAL BILIRUBIN 0.79 mg/dL (0.20-1.00)
--- NOTE | 2016-05-24 06:56 | PROGRESS NOTE ---
DATE: 05/24/2016 SUBJECTIVE: The patient doing well. Having some mild nausea. Nursing staff reports no major issues. He has had what looks like succus come out of his ileostomy. He has had a little bit of p.o. intake. His NG tube has been clamped. OBJECTIVE: Vital Signs: Patient is currently afebrile. His vital signs have been stable. General: No acute distress. Resting comfortably in bed. Cardiovascular: Regular rate and rhythm. Lungs: Grossly clear. Abdomen soft, moderately distended. Dressing in place. Ileostomy appears to be viable with some ileus succus output. LENIN drain with minimal serosanguineous output noted. ASSESSMENT AND PLAN: A 70-year-old male status post total abdominal colectomy for metastatic colon cancer. 1. Postoperative day #4. At this time, we will keep his NG tube clamped given nausea and keep him on his current diet and wait more definitive return of bowel function. 2. Likely metastatic cancer. Oncology is following. 3. Supraventricular tachycardia. At this time, it appears to be improving. 4. Multiple medical comorbidities being managed by the hospitalist service.
[2016-05-24 07:07] LABS: BANDS 4 % (0-1); BASO 2 % (0-1); EOS 2 % (1-10); LYMPHS 14 % (21-51); MONO 6 % (1-9)
[2016-05-24] MEDS: CLINIMIX E 4.25%-5% SOLUTION 1,000 ML IV SCH ×2 (07:23→22:56)
[2016-05-24] MEDS: LANTUS SUBQ SCH (08:20)
[2016-05-24] MEDS: ZOFRAN IV PRN ×2 (11:18→20:00)
--- NOTE | 2016-05-24 11:19 | PROGRESS NOTE ---
DATE: 05/24/2016 SUBJECTIVE: The patient is still having a lot of soreness in his abdomen. He stated that he is not feeling up to par today. No nausea. No vomiting. Still has NG tube in place. He does not like the clear liquid diet, or he takes just water. OBJECTIVE: Vital Signs: Blood pressure 141/79, pulse of 84, respirations 16, temperature of 97.6 degrees, saturations of 96% on 2 L nasal cannula. General Appearance: Obese, white male, in moderate distress due to pain. HEENT: An NG tube is in place. Neck: Supple. No JVD. No bruit. Cardiovascular: S1 and S2. Normal rate and rhythm. No murmur, rubs, or gallops. Pulmonary: Clear to auscultation bilaterally. GI: Soft, nontender, nondistended. Normoactive bowel sounds. Musculoskeletal: No clubbing, cyanosis, or edema. Laboratory: His white count is 9.7, hemoglobin 15.1, hematocrit of 44.9, platelets of 231,000. Chemistry: Sodium 132, potassium 4.1, chloride 98, bicarb 24, BUN 10, creatinine 0.6, glucose 192. ASSESSMENT AND PLAN: This is a 70-year-old, white male admitted to the hospital for a perforated bowel. 1. Perforated bowel with intraabdominal abscess, status post colectomy with ileostomy. The patient is still on Zosyn. He has been doing well. Dr. Denney is following. Surgery is also following. Abdomen is still distended. We will continue with a clear liquid diet for now. He does have some residual output from his colostomy. This is postoperative day #4. 2. Liver mass, most likely metastatic cancer. The pathology is still pending. 3. Diabetes type 2. Continue sliding scale insulin. 4. Hypertension. The patient is still on diltiazem drips. 5. Hyponatremia. The patient is on lactated Ringer's at 130 mL per hour. We will continue to monitor his laboratory. We will continue to follow.
--- NOTE | 2016-05-24 11:24 | PROGRESS NOTE ---
DATE: 05/24/2016 SUBJECTIVE: Mr. Kelly is doing well. He is mildly confused today but is pleasant and he is not agitated. He is tolerating oral intake which at present is clear liquids. PHYSICAL EXAMINATION: He is afebrile. Heart rate of 84, blood pressure 141/79. General: He is no acute distress. Cardiovascular: He is in a regular rate and rhythm. No obvious murmurs. He has no S3. He has no lower extremity edema. Chest: Exam is clear bilaterally. No increased work of breathing. Abdomen: Soft. He has mild diffuse tenderness to palpation but no rebound, no guarding. Skin Exam: Warm and dry throughout. PERTINENT DATA: His white count is 9.7, his hematocrit is 44.9, platelet count is 231,000. He has a slight left shift with a slight bandemia. His sodium is 133, potassium 4.1. His BUN is 10, creatinine 0.6. Albumin level is 1.4. ASSESSMENT: 1. Supraventricular tachycardia. 2. Colorectal cancer status post resection. PLAN: We will try to resume his Toprol when able to take oral medications. I will order it today and leave it as an order to resume when able to tolerate oral intake.
--- NOTE | 2016-05-24 16:28 | PROGRESS NOTE ---
DATE: 05/24/2016 PRESENT ILLNESS: The patient's pathology is back. It shows that the patient has a perforated colonic adenocarcinoma with metastatic disease in the liver. The patient also has intra-abdominal abscesses from the colonic cancer perforation. MEDICATIONS: The patient is receiving Zosyn as a single agent. PHYSICAL EXAMINATION: Vital Signs: Temperature is 97.4 degrees, pulse 82, respirations 15, blood pressure 147/81. General: This is an ill-appearing, elderly male. He is in no acute distress. Lungs: Clear to auscultation. Cardiovascular: Regular heart rate. Abdomen: Soft, slightly tender. The dressing is intact. The ileostomy is viable. LABORATORY DATA: The patient's CBC shows a white count of 9700, hemoglobin 15.1, platelet count 231. Creatinine is 0.6. GFR is greater than 60. Liver function studies are normal. ASSESSMENT: Patient has a perforated colonic adenocarcinoma with metastatic disease in the liver. The patient also has intra-abdominal abscess is from the perforation. PLAN: The plan is to continue his Zosyn. Oncology will be seeing the patient. COMORBIDITIES: He has a perforated colonic cancer and intra-abdominal abscesses. The patient also is a diabetic.
[2016-05-25] MEDS: CARDIZEM 100 MG/NS 100 ML IV SCH ×2 (00:06→22:29)
[2016-05-25] MEDS: HEPARIN SUBQ SCH ×3 (00:08→16:21)
[2016-05-25] MEDS: HUMALOG SUBQ SCH ×6 (00:10→20:30)
[2016-05-25] MEDS: PROTONIX IV SCH ×2 (02:04→12:24)
[2016-05-25] MEDS: MORPHINE PCA IV PRN (02:05)
[2016-05-25] MEDS: SODIUM CHLORIDE 0.9% INJ SCH ×2 (02:05→12:24)
[2016-05-25] MEDS: ZOSYN 3.375 GM/NS 50 ML IV SCH ×4 (04:07→20:30)
[2016-05-25] MEDS: LR 1,000 ML IV SCH ×3 (06:36→22:32)
[2016-05-25 06:39] LABS: MANUAL DIFF NEEDED? NO
[2016-05-25 06:50] LABS: BASO% 0.8 % (0.0-0.8); EOS# 0.21 X1000 (0.0-0.7); EOS% 2.3 % (0.0-10.0); HEMATOCRIT 40.2 % (42.0-52.0); HEMOGLOBIN 13.2 g/dL (14.0-18.0); IMM GRAN# 0.18 X1000 (0.0-0.04); LYMPH# 1.12 X1000 (1.2-3.4); LYMPH% 12.1 % (20.5-51.1); MCH 28.6 PG (27-31); MCHC 32.8 g/dL (33-37); MCV 87.2 FL (81-99); MONO# 1.07 X1000 (0.11-0.59); MONO% 11.6 % (1.7-9.3); MPV 9.8 FL (7.4-10.4); NEUT% 71.2 % (42.2-75.2); PLT 279 X1000 (130-400); RBC 4.61 XMIL (4.7-6.1)
--- NOTE | 2016-05-25 06:52 | PROGRESS NOTE ---
DATE: 05/25/2016 SUBJECTIVE: Patient had his NG tube placed back to suction given episode of nausea yesterday. Had a liter of bilious output recorded. He does have ileostomy output with over 250 of bilious fluid noted. OBJECTIVE: Vital Signs: Patient is currently afebrile. His vital signs have been stable. General: No acute distress. Alert, interactive male, looks stated age. Cardiovascular: Regular rate and rhythm. Lungs: Coarse sounds noted. Abdomen: Soft. Some mild distention. Dressings in place but incision appears clean, dry and intact. He does have some mild bowel sounds auscultated. His ostomy appears to be viable. There is some output noted in the appliance. LENIN drain with serosanguineous output noted and recorded at over 100. ASSESSMENT/PLAN: A 70-year-old male status post abdominal colectomy for metastatic colon cancer. 1. Postoperative day #5. At this time, patient's NG tube needs to stay in place to low wall intermittent suction, and given his postoperative ileus, we will continue to monitor. Given this, we will also start the patient on TPN. 2. Likely metastatic colon cancer. At this time pathology showed that he did have liver metastases. Surprisingly his lymph nodes were negative. He also had what sounds like, from pathology report, concurrent appendicitis. Oncology is following. 3. Supraventricular tachycardia. At this time this appears to be resolving. 4. Multiple medical comorbidities currently being managed by the hospitalist service.
[2016-05-25 07:09] LABS: AGAP 10; BUN 9 mg/dL (8-22); CHLORIDE 99 mmol/L (98-107); COSMO 274; POTASSIUM 3.3 mmol/L (3.5-5.1); SODIUM 136 mmol/L (136-145); TCO2 27 mmol/L (25-35)
[2016-05-25] MEDS: TOPROL XL PO SCH (08:18)
[2016-05-25] MEDS: LANTUS SUBQ SCH (08:21)
--- NOTE | 2016-05-25 11:23 | PROGRESS NOTE ---
DATE: 05/25/2016 PRESENT ILLNESS: The patient has perforated colonic adenocarcinoma with metastatic disease in the liver. Patient also has intra-abdominal abscesses secondary to the perforation. MEDICATIONS: The patient is on Zosyn as a single agent. This is day 5 of treatment with Zosyn. PHYSICAL EXAMINATION: Vital Signs: Temperature is 98.1 degrees, pulse 81, respirations 13, blood pressure 142/76. General: This is an ill-appearing, elderly male. He is in no acute distress. He has an NG tube down now. Lungs: Clear to auscultation. Cardiovascular: Regular heart rate. Abdomen: Slightly distended and tender. The patient's incision is intact and his ileostomy is viable. LABORATORY DATA: The patient's CBC shows he has a white count of 9220, hemoglobin 13.2, and platelet count 279,000. Creatinine 0.6. GFR is greater than 60. ASSESSMENT AND PLAN: Patient has perforated colonic adenocarcinoma with metastatic liver disease and intra-abdominal abscesses. I plan on continuing the patient's Zosyn. The patient will be seen today by Oncology and also Palliative Medicine. COMORBIDITY: That he has colon cancer with intra-abdominal abscesses. The cancer is metastatic. Patient also is a diabetic.
[2016-05-25] MEDS: CLINIMIX E 4.25%-5% SOLUTION 1,000 ML IV SCH (12:07)
[2016-05-25] MEDS ORDERED: POTASSIUM CHLORIDE 40 MEQ/SWI 100 ML IV ONE (13:43)
[2016-05-25] MEDS ORDERED: D10W 1,000 ML IV SCH (14:00)
--- NOTE | 2016-05-25 14:14 | PROGRESS NOTE ---
DATE: 05/25/2016 SUBJECTIVE: The patient feeling much better today. Appears to be comfortable. Abdominal pain has not been as bad as it has been. No nausea, no vomiting. NG tube is still in place. OBJECTIVE: Vital signs: Blood pressure 134/72, pulse of 74, respirations 15, temperature 98.4 degrees, saturations of 97% on 2 L. General Appearance: White male, hard of hearing but in no acute distress. HEENT: Anicteric. Clear conjunctivae. Neck: Supple. No JVD. No bruit. Cardiovascular: S1, S2, normal rate and rhythm. No murmur, rubs, or gallops. Pulmonary: Clear to auscultation bilaterally. GI: Moderate distended, tender to palpations, hypoactive bowel sounds. Musculoskeletal: No clubbing, cyanosis, or edema. LABORATORY: His white count 9.22, hemoglobin 13.2, hematocrit of 40.2, platelets 279,000. Chemistry. Sodium 136, potassium 3.3, chloride 99, bicarb 27, BUN 9, creatinine 0.6, glucose 169. ASSESSMENT AND PLAN: This is a 70-year-old admitted to the hospital for bowel obstruction and perforations. 1. Bowel obstruction status post colectomy and liver biopsy. Liver biopsy come back to be positive for metastatic adenocarcinoma and the section from the colon also showed adenocarcinoma. Therefore the patient has metastatic colon cancer that metastasized to his liver. Will continue with supportive care and will continue Zosyn for intraabdominal infections. Infectious disease is following. Surgery is also following the patient on clear liquid diet. His NG tubes still shows significant bile like substances. His colostomy also put out bile like substances as well. No fecal matter yet. 2. Diabetes type 2. Continue sliding scale insulin for now. 3. Hypertension. The patient is on diltiazem drips. 4. Hyponatremia resolved. 5. Hypokalemia. Will replace the potassium. Will recheck his lab work in the morning. Will continue Clinimix and will continue to follow the patient closely.
[2016-05-25] MEDS: TPN ELECTROLYTES 20 ML, MAGNESIUM SULFATE 5 MEQ, POTASSIUM CHLORIDE 25 MEQ, M.V.I.-12 1... IV SCH ×8 (16:16)
[2016-05-25] MEDS: LIPOSYN 20% 500 ML IV SCH (16:16)
[2016-05-25 17:26] LABS: AGAP 8; BUN 9 mg/dL (8-22); CALCIUM 8.3 mg/dL (8.8-10.2); CHLORIDE 96 mmol/L (98-107); COSMO 271; GOT 15 U/L (10-34); MAGNESIUM 1.8 mg/dL (1.5-2.7); POTASSIUM 3.2 mmol/L (3.5-5.1); SODIUM 134 mmol/L (136-145); TCO2 30 mmol/L (25-35); TRIGLYCERIDES 212 mg/dL (39-160)
[2016-05-26] MEDS: HUMALOG SUBQ SCH ×6 (02:07→20:00)
[2016-05-26] MEDS: PROTONIX IV SCH ×2 (02:07→12:39)
[2016-05-26] MEDS: SODIUM CHLORIDE 0.9% INJ SCH ×2 (02:07→12:39)
[2016-05-26] MEDS: HEPARIN SUBQ SCH ×3 (02:07→16:45)
[2016-05-26] MEDS: MORPHINE PCA IV PRN (02:58)
[2016-05-26] MEDS: ZOSYN 3.375 GM/NS 50 ML IV SCH ×2 (03:15→08:18)
[2016-05-26] MEDS: LR 1,000 ML IV SCH ×2 (05:11→12:37)
[2016-05-26 05:45] LABS: MANUAL DIFF NEEDED? NO
[2016-05-26 06:00] LABS: BASO% 0.5 % (0.0-0.8); EOS# 0.21 X1000 (0.0-0.7); EOS% 2.5 % (0.0-10.0); HEMATOCRIT 37.7 % (42.0-52.0); HEMOGLOBIN 12.5 g/dL (14.0-18.0); IMM GRAN# 0.18 X1000 (0.0-0.04); IMM GRAN% 2.1 % (0.0-0.5); LYMPH# 0.94 X1000 (1.2-3.4); MCH 28.7 PG (27-31); MCHC 33.2 g/dL (33-37); MCV 86.5 FL (81-99); MONO# 0.98 X1000 (0.11-0.59); MONO% 11.5 % (1.7-9.3); MPV 9.7 FL (7.4-10.4); NEUT% 72.4 % (42.2-75.2); PLT 317 X1000 (130-400); RBC 4.36 XMIL (4.7-6.1)
[2016-05-26 06:17] LABS: AGAP 9; BUN 8 mg/dL (8-22); CHLORIDE 98 mmol/L (98-107); COSMO 283; MAGNESIUM 1.8 mg/dL (1.5-2.7); POTASSIUM 3.1 mmol/L (3.5-5.1); SODIUM 138 mmol/L (136-145); TCO2 31 mmol/L (25-35)
[2016-05-26] MEDS: TOPROL XL PO SCH (08:18)
[2016-05-26] MEDS: LANTUS SUBQ SCH (08:18)
--- NOTE | 2016-05-26 08:39 | PROGRESS NOTE ---
DATE: 05/26/2016 SUBJECTIVE: Mr. Cirilo Kelly is postop day 6 from a total abdominal colectomy with ileostomy. He is in our ICU on TPN. He is awake and cooperative and looks comfortable. He has had no output from his ileostomy bag. His heart rate is 78, blood pressure 131/83, O2 saturation 98% nasal cannula O2. He has a Bustillos catheter tube in place. His urine output is good. His BUN and creatinine are 8 and 0.6. He is afebrile with a normal white blood cell count of 8.5. He continues to be on IV Zosyn. He is on TPN and on a pain pump. His midline incision looks good. His ileostomy appears to be viable, but swollen. No output. PLAN: He continues to have a postoperative ileus and will treat him with NG tube suction, which he has in place, TPN and supportive care. We need to consider stopping his IV antibiotics because of his normal white blood cell count. He is afebrile. Decide on transfer to the floor.
[2016-05-26] MEDS ORDERED: POTASSIUM CHLORIDE 40 MEQ/SWI 100 ML IV ONE (09:39)
--- NOTE | 2016-05-26 12:59 | PROGRESS NOTE ---
DATE: 05/26/2016 SUBJECTIVE: The patient is feeling better today. He denies having any fever or chills. Has intermittent tube, has not had much of an outpatient from the colostomy, NG tube is still putting greenish bile-like substances. OBJECTIVE: Vital signs: Blood pressure 122/68, pulse of 80, respirations 19, temperature 96.8, sats of 100% on 2 L. General appearance: Well-developed, well-nourished white male in no acute distress. HEENT: Anicteric, clear conjunctivae. Neck: Supple, no JVD, no bruit. Cardiovascular: S1 and S2, normal rate and rhythm, no murmur, rubs, or gallop. Pulmonary: Clear to auscultation bilaterally. GI: Severely distended. Mildly tender to palpation. Minimal bowel sounds. LABORATORY: White count 8.51, hemoglobin 12.5, hematocrit 37.7, platelets 317. Chemistry: Sodium 130, potassium 3.1, chloride 98, bicarbonate 38, BUN 8, creatinine 0.6. ASSESSMENT AND PLAN: This is a 70-year-old white male admitted to the hospital for bowel preparation, was found to have metastatic colon cancer. 1. Metastatic colon cancer status post colectomy, still having bowel distension. The patient is on n.p.o. but nurse has seen the patient this morning, okay for him to go to the floor. Continue with NG tube suction. 2. Diabetes type 2. Continue sliding scale insulin. 3. Hypertension. Will continue metoprolol, will increase the dose, and will stop the diltiazem drip, and will transfer the patient to the floor. 4. Nutrition. The patient is on TPN and on IV fluid. 5. DVT prophylaxis, is on Lovenox.
[2016-05-26] MEDS: LIPOSYN 20% 500 ML IV SCH (16:45)
[2016-05-26] MEDS: TPN ELECTROLYTES 20 ML, MAGNESIUM SULFATE 5 MEQ, POTASSIUM CHLORIDE 25 MEQ, M.V.I.-12 1... IV SCH ×8 (17:00)
[2016-05-27] MEDS: PROTONIX IV SCH ×2 (01:16→13:24)
[2016-05-27] MEDS: HUMALOG SUBQ SCH ×6 (01:16→20:28)
[2016-05-27] MEDS: HEPARIN SUBQ SCH ×3 (01:16→18:17)
[2016-05-27 05:26] LABS: MANUAL DIFF NEEDED? NO
[2016-05-27 05:53] LABS: AGAP 11; BUN 7 mg/dL (8-22); CHLORIDE 97 mmol/L (98-107); COSMO 282; MAGNESIUM 1.8 mg/dL (1.5-2.7); POTASSIUM 3.3 mmol/L (3.5-5.1); SODIUM 137 mmol/L (136-145); TCO2 29 mmol/L (25-35)
[2016-05-27] MEDS: ZOFRAN IV PRN ×3 (05:58→19:35)
[2016-05-27 06:42] LABS: BASO% 0.4 % (0.0-0.8); EOS# 0.23 X1000 (0.0-0.7); EOS% 2.3 % (0.0-10.0); HEMATOCRIT 37.5 % (42.0-52.0); HEMOGLOBIN 12.5 g/dL (14.0-18.0); IMM GRAN# 0.15 X1000 (0.0-0.04); IMM GRAN% 1.5 % (0.0-0.5); LYMPH# 1.13 X1000 (1.2-3.4); LYMPH% 11.3 % (20.5-51.1); MCH 28.7 PG (27-31); MCHC 33.3 g/dL (33-37); MCV 86.2 FL (81-99); MONO# 0.89 X1000 (0.11-0.59); MONO% 8.9 % (1.7-9.3); MPV 9.9 FL (7.4-10.4); NEUT% 75.6 % (42.2-75.2); PLT 333 X1000 (130-400); RBC 4.35 XMIL (4.7-6.1)
[2016-05-27] MEDS: TOPROL XL PO SCH (08:47)
[2016-05-27] MEDS: LANTUS SUBQ SCH (10:08)
[2016-05-27] MEDS ORDERED: POTASSIUM CHLORIDE 40 MEQ/SWI 100 ML IV ONE (11:00)
--- NOTE | 2016-05-27 12:27 | PROGRESS NOTE ---
DATE: 05/27/2016 SUBJECTIVE: Mr. Cirilo Kelly is a 70-year-old white male. He has undergone a total abdominal colectomy and has an end ileostomy. There has been no real output from his ileostomy. Yesterday he was transferred from the ICU to the floor. His NG tube remains in place. His abdomen is not tightly distended. It does not seem to be tender. OBJECTIVE: His heart rate is 84, blood pressure 128/63, O2 saturation is 100%. He has no work of breathing. He still has a Bustillos catheter tube in place. His urine output has been. BUN and creatinine are 7 and 0.6. His white blood cell count is normal. Hematocrit is 37%. He remains on IV Zosyn. He is receiving TPN and still on a pain pump. He did sit up in the chair yesterday. PLAN: We will continue NG suction because he has really not had any significant output from his ileostomy. His midline incision seems to be healing well. He is receiving TPN. We need to consider stopping his antibiotics because his white blood cell count is normal and he is afebrile. We need to continue increasing his activity.
[2016-05-27] MEDS: LR 1,000 ML IV SCH (12:38)
[2016-05-27] MEDS: SODIUM CHLORIDE 0.9% INJ SCH (13:24)
[2016-05-27] MEDS: LIPOSYN 20% 500 ML IV SCH (14:59)
--- NOTE | 2016-05-27 15:07 | PROGRESS NOTE ---
DATE: 05/27/2016 SUBJECTIVE: The patient is looking better. He is feeling better. Still having some pain in her abdomen. He denies having any fever or chills. No nausea or vomiting. NG tube is still in place. OBJECTIVE: Vital signs: Blood pressure 134/72, pulse of 77, respiration 18, temperature 98.9, saturation 98% on room air. General: Well-developed, well-nourished white male, in no acute distress. Very hard of hearing. HEENT: Anicteric. Nasogastric tube in place. Neck: Supple. No JVD. No bruits. Cardiovascular: S1, S2. Normal rate and rhythm. No murmur, rubs, or gallops. Pulmonary: Clear to auscultation bilaterally. GI: Distended, hypoactive bowel sounds. Colostomy with a greenish output. LABORATORY: White count 10.03, hemoglobin 12.5, hematocrit 37.5, platelets of 333,000. Chemistry: Sodium 137, potassium 3.3, chloride 97, bicarb 29, BUN 7, creatinine 0.6, glucose of 288. ASSESSMENT/PLAN: This is a 70-year-old white male, admitted to the hospital for gangrenous bowel status post colon resection with colostomy. 1. Colon resection and colostomy. He still has some minimal output from the colostomy bag. Surgery is following. He is on total parenteral nutrition. We will continue to keep the patient nothing per oral for Surgery recommendations since he did not have any significant output from the colostomy bag. 2. Hypokalemia. We will come continue to replace his potassium. 3. Diabetes. We will continue Lantus and sliding scale insulin. 4. Hypertension. We will continue metoprolol. His blood pressure is well controlled. 5. Deep vein thrombosis prophylaxis. The patient is on heparin. 6. Metastatic colon cancer. Biopsy confirmed adenocarcinoma that had metastasized to the liver. The patient and his were kept informed.
[2016-05-27] MEDS: TPN ELECTROLYTES 20 ML, MAGNESIUM SULFATE 5 MEQ, POTASSIUM CHLORIDE 25 MEQ, M.V.I.-12 1... IV SCH ×8 (15:57)
[2016-05-27] MEDS: MORPHINE PCA IV PRN (23:23)
[2016-05-28] MEDS: HUMALOG SUBQ SCH ×6 (01:03→21:29)
[2016-05-28] MEDS: PROTONIX IV SCH ×2 (01:03→13:48)
[2016-05-28] MEDS: SODIUM CHLORIDE 0.9% INJ SCH (01:03)
[2016-05-28] MEDS: HEPARIN SUBQ SCH ×3 (01:03→16:32)
[2016-05-28] MEDS: ZOFRAN IV PRN ×4 (01:08→21:30)
--- NOTE | 2016-05-28 06:49 | PROGRESS NOTE ---
DATE: 05/28/2016 PRESENT ILLNESS: The patient has perforated colonic adenocarcinoma with metastatic disease in the liver. The patient also had intra-abdominal abscesses secondary to the perforation. MEDICATIONS: The patient currently is not receiving an antibiotic. Last week he had completed 5 days of treatment with Zosyn before it was discontinued. PHYSICAL EXAMINATION: Vital Signs: Temperature 98 degrees, pulse 75, respirations 18 and blood pressure 128/57. General: This is a somewhat ill-appearing elderly male who is in no acute distress. Lungs: Clear to auscultation. Cardiovascular: Regular heart rate. Abdomen: Soft and nontender. The patient's incision is intact. He has an ostomy present which is functional. LABORATORY AND X-RAY: There is no new x-ray today. [place] [address]. Hemoglobin 12.5, platelet count 333,000 and creatinine is 0.6. GFR is greater than 60. ASSESSMENT AND PLAN: Patient has perforated colonic adenocarcinoma with metastatic liver disease and intra-abdominal abscess. I am going to restart Zosyn. COMORBIDITIES: Include colonic cancer with intra-abdominal abscesses and metastatic disease in the liver. Patient also is diabetic.
--- NOTE | 2016-05-28 07:52 | PROGRESS NOTE ---
DATE: 05/28/2016 SUBJECTIVE: The patient is doing well still with mild nausea. His ileostomy has some liquid output. His NG tube was removed last night accidentally. OBJECTIVE: Vital Signs: Patient is currently afebrile. His vital signs have been stable. General: No acute distress. Resting comfortably in bed. Cardiovascular: Regular rate and rhythm. Lungs: Grossly clear. Abdomen: Soft, appropriately tender. The ileostomy in the right lower quadrant appears to be viable and patent. LENIN drain with 100 mL of serosanguineous output. Incision is healing well. PLAN: A 70-year-old male status post total abdominal colectomy for metastatic colon cancer. At this time, the patient's postoperative status will allow him to have sips of clears. His ileostomy appears to be working but it might not have much to drain so we will start clear liquids with sips only. The patient is still on TPN and will continue that until we make sure he is able to make sure he is able to take in enough caloric intake.
[2016-05-28] MEDS: ZOSYN 4.5 GM/NS 100 ML IV SCH ×3 (08:30→22:40)
[2016-05-28] MEDS: TOPROL XL PO SCH (09:16)
[2016-05-28] MEDS: LANTUS SUBQ SCH (09:16)
[2016-05-28 09:25] LABS: MANUAL DIFF NEEDED? NO
[2016-05-28 09:32] LABS: BASO% 0.5 % (0.0-0.8); EOS# 0.23 X1000 (0.0-0.7); EOS% 1.9 % (0.0-10.0); HEMOGLOBIN 12.6 g/dL (14.0-18.0); IMM GRAN# 0.15 X1000 (0.0-0.04); IMM GRAN% 1.3 % (0.0-0.5); LYMPH# 1.13 X1000 (1.2-3.4); LYMPH% 9.5 % (20.5-51.1); MCH 28.4 PG (27-31); MCHC 33.2 g/dL (33-37); MCV 85.6 FL (81-99); MONO# 1.11 X1000 (0.11-0.59); MONO% 9.4 % (1.7-9.3); MPV 10.2 FL (7.4-10.4); NEUT% 77.4 % (42.2-75.2); PLT 336 X1000 (130-400); RBC 4.44 XMIL (4.7-6.1)
[2016-05-28 10:17] LABS: BUN 8 mg/dL (8-22); CALCIUM 8.1 mg/dL (8.8-10.2); CHLORIDE 97 mmol/L (98-107); MAGNESIUM 1.9 mg/dL (1.5-2.7); TCO2 30 mmol/L (25-35)
[2016-05-28] MEDS: LR 1,000 ML IV SCH (10:59)
[2016-05-28 11:22] LABS: AGAP 9; POTASSIUM 3.6 mmol/L (3.5-5.1); SODIUM 136 mmol/L (136-145)
[2016-05-28 11:23] LABS: COSMO 280
[2016-05-28 12:34] LABS: ALBUMIN 2.3 g/dL (3.5-5.0); DIRECT BILIRUBIN 0.2 mg/dL (0.00-0.20); TOTAL BILIRUBIN 0.35 mg/dL (0.20-1.00); TOTAL PROTEIN 5.1 g/dL (6.3-8.3)
[2016-05-28] MEDS ORDERED: SODIUM PHOSPHATE 30 MMOL in NS 250 ML IV ONE (14:26)
[2016-05-28] MEDS ORDERED: D10W 1,000 ML IV SCH (15:00)
[2016-05-28] MEDS ORDERED: CHLORASEPTIC SPRAY MT PRN (16:17)
[2016-05-28] MEDS: LIPOSYN 20% 500 ML IV SCH (16:22)
[2016-05-28] MEDS: TPN ELECTROLYTES 20 ML, MAGNESIUM SULFATE 5 MEQ, POTASSIUM CHLORIDE 25 MEQ, M.V.I.-12 1... IV SCH ×8 (17:07)
--- NOTE | 2016-05-28 17:47 | PROGRESS NOTE ---
DATE: 05/28/2016 SUBJECTIVE: The patient is resting comfortably in bed. He states that he is hungry and wants to eat. OBJECTIVE: Vital Signs: Temperature 98.4 degrees, blood pressure 117/63, heart rate 74, respirations 16, O2 saturation is 95% on room air. General: This is an elderly male, lying comfortably in bed, in no acute distress. Head: Normocephalic, atraumatic. Heart: S1, S2. Normal. Regular rate and rhythm. Lungs: Clear to auscultation bilaterally. No wheezing. No rales. No rhonchi. Abdomen: Positive bowel sounds. Soft, nontender. : Scrotum positive for edema. Extremities: No edema. No cyanosis. No calf tenderness. Neurologic: The patient is alert and oriented. LABS: White blood cell count 11, hemoglobin 12, hematocrit 38, platelets 336,000. Sodium 136, potassium 3.6, chloride 97, CO2 30, BUN 8, creatinine 0.8, glucose 268, magnesium 1.9, phosphorus 2.0. ASSESSMENT AND PLAN: 1. Perforated metastatic colon cancer status post total abdominal colectomy with ileostomy. Continue on IV antibiotic therapy. Further management as per Dr. Denney and Dr. Funes. 2. Scrotal edema. Continue to advise the patient to keep the scrotum elevated. 3. Diabetes mellitus type 2. Continue on sliding scale insulin. 4. Hypertension. Controlled. 5. Nutrition. The patient is currently on TPN. Further management as per the general surgeon. 6. Deep vein thrombosis prophylaxis. Continue on heparin 5000 units subcutaneous every 8 hours. 7. Continue with physical therapy.
[2016-05-28] MEDS ORDERED: CALMOSEPTINE OINTMENT TOP PRN (21:08)
[2016-05-29] MEDS: SODIUM CHLORIDE 0.9% INJ SCH ×2 (01:04→13:02)
[2016-05-29] MEDS: PROTONIX IV SCH ×2 (01:04→13:01)
[2016-05-29] MEDS: HEPARIN SUBQ SCH ×3 (01:04→16:57)
[2016-05-29] MEDS: HUMALOG SUBQ SCH ×7 (01:05→22:52)
[2016-05-29] MEDS: ZOFRAN IV PRN ×3 (01:39→09:34)
[2016-05-29] MEDS: ZOSYN 4.5 GM/NS 100 ML IV SCH ×3 (05:55→22:51)
[2016-05-29 06:11] LABS: MANUAL DIFF NEEDED? NO
[2016-05-29 06:19] LABS: BASO% 0.3 % (0.0-0.8); EOS# 0.18 X1000 (0.0-0.7); EOS% 1.5 % (0.0-10.0); HEMATOCRIT 39.2 % (42.0-52.0); HEMOGLOBIN 13.3 g/dL (14.0-18.0); IMM GRAN# 0.14 X1000 (0.0-0.04); IMM GRAN% 1.2 % (0.0-0.5); LYMPH# 1.08 X1000 (1.2-3.4); MCH 28.6 PG (27-31); MCHC 33.9 g/dL (33-37); MCV 84.3 FL (81-99); PLT 372 X1000 (130-400); RBC 4.65 XMIL (4.7-6.1)
[2016-05-29 06:37] LABS: AGAP 9; BUN 9 mg/dL (8-22); CHLORIDE 95 mmol/L (98-107); COSMO 278; MAGNESIUM 1.9 mg/dL (1.5-2.7); POTASSIUM 3.6 mmol/L (3.5-5.1); SODIUM 134 mmol/L (136-145); TCO2 30 mmol/L (25-35)
[2016-05-29] MEDS ORDERED: SODIUM PHOSPHATE 30 MMOL in NS 250 ML IV ONE (06:38)
--- NOTE | 2016-05-29 07:48 | Diag Imaging Result Document ---
PROCEDURE NAME: CHEST-PORTABLE - 05/29/2016 SINGLE FRONTAL RADIOGRAPH OF THE CHEST: COMPARISON: 05/21/2016. FINDINGS: There has been interval placement of a right PICC line. The tip projects over the lower SVC just above the atriocaval junction in the expected position. The NG tube has been removed during the interval. Inspiration is suboptimal. There is suggestion of mild atelectasis at the lung bases that is similar to the previous study. No new consolidation is identified. Cardiac silhouette is stable. IMPRESSION: Interval placement of right PICC line, an essentially stable chest, otherwise.
--- NOTE | 2016-05-29 07:55 | PROGRESS NOTE ---
DATE: 05/29/2016 SUBJECTIVE: Patient doing well. He desired more to eat. His ileostomy has increased in the output. His LENIN drain has decreased in output. OBJECTIVE: Vital Signs: Patient is currently afebrile. His vital signs have been stable. General Examination: No acute distress. Resting comfortably in bed. Cardiovascular: Regular rate and rhythm. Lungs: Grossly clear. Abdomen: Soft, appropriately tender. Ileostomy in the right lower quadrant viable and patent. LENIN drain with serosanguineous output. Incision is healing well. ASSESSMENT/PLAN: A 70-year-old, male status post total abdominal colectomy for metastatic colon cancer. At this time, the patient's postoperative status is improving. We will allow him to have a full liquid diet. His ileostomy appears to be working. We will also remove his Bustillos catheter and see how he does. We will also have social studies teacher evaluate for potential rehabilitation options.
[2016-05-29] MEDS: LANTUS SUBQ SCH ×2 (08:11→22:51)
[2016-05-29] MEDS: TOPROL XL PO SCH (08:11)
--- NOTE | 2016-05-29 08:21 | PROGRESS NOTE ---
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 The patient also as a result of having a perforation of his colon has intra-abdominal abscesses. MEDICATIONS: The patient was restarted on Zosyn yesterday. PHYSICAL EXAMINATION: Vital Signs: Temperature is 98.2 degrees pulse 85, respirations 20, blood pressure 139/64. General: This is a fairly healthy-appearing, elderly male. He is in no acute distress. Lungs: Clear to auscultation. Cardiovascular: Heart rate is regular. Abdomen: Soft and nontender. The patient's incision is intact. The patient's ostomy is functioning well. The patient has a drainage tube in place that does not have any surrounding erythema. LAB AND X-RAY: The patient today had a CBC with a white count of 12,060, hemoglobin 13.3, and platelet count 372,000. The patient's most recent creatinine was yesterday and it was 0.8. There is no new radiographic study. ASSESSMENT AND PLAN: The patient has intra-abdominal abscesses following perforation of a colonic adenocarcinoma. I plan to continue Zosyn. The patient's comorbidities include colon cancer with metastatic disease and diabetes. The patient also had perforation of the involved bowel with adenocarcinoma.
[2016-05-29] MEDS: LR 1,000 ML IV SCH (12:58)
--- NOTE | 2016-05-29 13:55 | PROGRESS NOTE ---
DATE: 05/29/2016 SUBJECTIVE: The patient is awake and alert. He is currently on a full liquid diet and is tolerating it without any difficulty. OBJECTIVE: Vital signs: Temperature 98, blood pressure 119/58, heart rate 81, respirations 18. O2 saturation is 97% on room air. General: This is an elderly male lying in bed in no acute distress. HEENT: Head normocephalic, atraumatic. Heart: S1, S2 normal. Regular rate and rhythm. Lungs: Clear to auscultation bilaterally. No wheezing, no rales, no rhonchi. Abdomen: Positive bowel sounds, soft, nontender, nondistended. Extremities: No edema. No cyanosis. LABORATORY: White blood cell count 12, hemoglobin 13, hematocrit 39, platelets 372. Sodium 134, potassium 3.6, chloride 95. CO2 is 30. BUN 9. Creatinine 0.8. Glucose 294. Phosphorus 2.3. ASSESSMENT AND PLAN: 1. Perforated metastatic colon cancer status post total abdominal colectomy with ileostomy. Continue on IV antibiotic therapy. The patient has been started on a full liquid diet by the general surgeon. We will continue to monitor the patient closely. 2. Diabetes mellitus type 2. Continue with sliding scale insulin. 3. Hypophosphatemia. Will start the patient on Neutra-Phos. 4. Scrotal edema. Continue to elevate the scrotum. 5. Nutrition. The patient has been started on a full liquid diet. Further advancement as per the general surgeon. 6. Deep venous thrombosis prophylaxis. Continue on heparin 5000 units subcutaneous every eight hours. 7. Continue with physical therapy. 8. Disposition. Once the patient is medically stable, he will be discharged to rehabilitation.
[2016-05-29] MEDS: LIPOSYN 20% 500 ML IV SCH ×2 (14:57→16:57)
[2016-05-29] MEDS: TPN ELECTROLYTES 20 ML, MAGNESIUM SULFATE 5 MEQ, POTASSIUM CHLORIDE 25 MEQ, M.V.I.-12 1... IV SCH ×8 (16:57)
[2016-05-29] MEDS: NEUTRA-PHOS PO SCH ×2 (16:58→22:51)
--- NOTE | 2016-05-29 17:43 | PALLIATIVE CARE CONSULTATION ---
DATE: 05/28/2016 REQUESTING PHYSICIAN: Dr. Kayla Yoon. REASON FOR CONSULTATION: Goals of care. HISTORY OF PRESENT ILLNESS: Mr. Kelly is a 70-year-old male with a past medical history of diabetes mellitus type 2, coronary artery disease status post coronary artery bypass graft, and hypertension. He was most recently admitted on 05/20/2016 after presenting to the emergency department with complaints of abdominal pain, nausea, vomiting, diarrhea, and abdominal distention. While in the emergency department, he was found to have an elevated white blood cell count of 24.54. CT scan of the abdomen and pelvis also revealed stricture and probable mucosal mass in the sigmoid colon as well as paracecal abscesses, a perforation in the right lower quadrant, a perforation in the sigmoid colon. At that time, Dr. Funes was consulted and Mr. Kelly has since underwent a total abdominal colectomy. A biopsy revealed colonic adenocarcinoma with metastatic disease in the liver. Currently Mr. Kelly is lying in the hospital bed. He is very pleasant but has periods of confusion. He complains of mild abdominal pain and occasional nausea. His is at the bedside. The palliative care team has been consulted to assist with goals of care. REVIEW OF SYSTEMS: A 12-point review of systems has been conducted and is otherwise negative except as mentioned in the HPI. PAST MEDICAL HISTORY: See HPI. PAST SURGICAL HISTORY: 1. Coronary artery bypass graft. 2. Cardiac stent placement. 3. Right carotid endarterectomy. 4. Bilateral cataract surgery. 5. Left foot surgery. SOCIAL HISTORY: He has past tobacco and alcohol use. Drug use has been denied. Prior to this admission he lived at home with his . FAMILY HISTORY: Positive for prostate cancer, lung cancer, dementia, and diabetes. PHYSICAL EXAMINATION: GENERAL: This is a well-developed, pleasant, 70-year-old male who does not appear to be in any acute distress. HEENT: Atraumatic, normocephalic. NECK: Trachea is midline. CARDIOVASCULAR: Regular rate and rhythm. PULMONARY: Lung sounds are clear to auscultation. ABDOMEN: Soft. Ileostomy noted to the right lower quadrant. The patient's incision is intact and shows no signs of infection. EXTREMITIES: Pulses are palpable. IMPRESSION: This is a 70-year-old male with a past medical history as listed above in the HPI. The palliative care team was consulted to assist in goals of care. The explains that Oncology has recommended palliative chemotherapy once Mr. Kelly is discharged from the hospital. Mr. and Ms. Kelly had questions regarding palliative chemotherapy and any home support that is offered. We discussed home health and outpatient palliative care services. They also had questions regarding power of ent nurse and advanced directives. Blank advanced directive forms were given upon their request. It appears that Mr. Kelly' palliative performance skill is 40%. As previously mentioned, he complains of mild abdominal pain and nausea. He also states that he is hungry. The palliative care team will continue to follow daily until discharge. Thank you for this consultation. Dictated by TIARRA Hercules for Kevin Dias MD
--- NOTE | 2016-05-29 17:48 | PALLIATIVE CARE PROGRESS NOTE ---
DATE: 05/29/2016 SUBJECTIVE: Mr. Kelly is sitting up in the bedside chair. He has no acute complaints. He states that he feels much better today. OBJECTIVE: General: This is a very pleasant 70-year-old male who does not appear to be in any acute distress. HEENT: Atraumatic, normocephalic. Neck: Trachea is midline. Cardiovascular: Regular rate and rhythm. Pulmonary: Lung sounds are clear. Abdomen: Soft. Incision shows no signs of infection. Ileostomy is noted to the right lower quadrant. ASSESSMENT AND PLAN: Ms. Kelly is at the bedside and states that Mr. Kelly will be going to rehab upon discharge. Currently Mr. Kelly does not have any acute complaints. He denies pain as well as nausea. The palliative care team will continue to follow daily until discharge. Dictated by TIARRA Hercules for Kevin Dias MD
[2016-05-30] MEDS: PROTONIX IV SCH ×2 (01:49→13:13)
[2016-05-30] MEDS: HEPARIN SUBQ SCH ×3 (01:49→17:12)
[2016-05-30] MEDS: SODIUM CHLORIDE 0.9% INJ SCH ×2 (01:49→13:13)
[2016-05-30] MEDS: HUMALOG SUBQ SCH ×6 (01:50→22:04)
[2016-05-30] MEDS: LR 1,000 ML IV SCH ×2 (02:54→11:21)
--- NOTE | 2016-05-30 06:14 | PROGRESS NOTE ---
DATE: 05/30/2016 SUBJECTIVE: Patient doing well. Continues to tolerate his diet. His ileostomy output has increased. OBJECTIVE: Vital Signs: Patient is currently afebrile. His vital signs have been stable. General Examination: No acute distress. Alert and interactive. Lungs: Grossly clear. Abdomen: Soft, appropriately tender. Ileostomy in right lower quadrant viable and patent. Cardiovascular: Regular rate and rhythm. Is and Os: LENIN drain with 105 serosanguineous output recorded. Ileostomy with 1600 mL of ostomy output. ASSESSMENT AND PLAN: A 70-year-old, male status post total abdominal colectomy for metastatic colon cancer. At this time, patient's clinical status is improving. We will have to monitor his ileostomy output. We will advance him to a gastrointestinal soft diet. If his ileostomy output continues to go up, may need to give the patient Imodium if he is able to tolerate. Continue to tolerate oral, we will stop his total parenteral nutrition in the next 24 hours. The patient would benefit from rehabilitation placement after discharge.
[2016-05-30] MEDS: ZOFRAN IV PRN (06:19)
[2016-05-30] MEDS: ZOSYN 4.5 GM/NS 100 ML IV SCH ×2 (06:54→13:48)
--- NOTE | 2016-05-30 07:24 | PROGRESS NOTE ---
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 As a result of the perforation, he also had intra-abdominal abscesses and fluid collections. MEDICATIONS: The patient is on Zosyn as a single agent. PHYSICAL EXAMINATION: Vital Signs: Temperature is 98.9 degrees, pulse 81, respirations 16, blood pressure 119/66. Generally, this is an ill-appearing, elderly male. He is in no acute distress. He is beginning to tolerate liquids fairly well. Lungs clear to auscultation. Cardiovascular: Regular heart rate. Abdomen is soft and not tender to light palpation. The patient's incision is intact. The patient's ostomy is functioning well. There is a drain in place. LABORATORY DATA AND X-RAY: The patient's CBC shows a white count of 12,060. Hemoglobin 13.3, platelet count 372,000. Creatinine is 0.8. GFR is greater than 60. There is no new radiographic study. ASSESSMENT AND PLAN: As mentioned above, the patient did have intra-abdominal abscesses and fluid collection because of perforation of the colonic adenocarcinoma. I discussed with Dr. Funes, the patient and his , about doing a CT scan of the abdomen and pelvis to see if the abscesses have cleared and to see also if there is any fluid collection that was present has cleared also. We all are agreeable to perform the CAT scan, and I have ordered it. I will continue with Isela pending the results of the CAT scan. The patient's comorbidity is that he has perforated colonic cancer with metastatic disease in the liver, and he also has diabetes.
[2016-05-30] MEDS: TOPROL XL PO SCH (10:08)
[2016-05-30] MEDS: LANTUS SUBQ SCH ×2 (10:09→22:03)
[2016-05-30] MEDS: NEUTRA-PHOS PO SCH ×4 (10:10→22:05)
--- NOTE | 2016-05-30 10:13 | Diag Imaging Result Document ---
PROCEDURE NAME: ABDOMEN/PELVIS W/WO CONTRAST - 05/30/2016 CT ABDOMEN AND PELVIS WITHOUT AND WITH INTRAVENOUS CONTRAST: A CT dose reduction protocol was used. COMPARISON: 05/19/2016. FINDINGS: On the noncontrast exam, there are small bilateral renal stones measuring 2 mm on the right and 3 mm on the left. On the contrast enhanced exam, there has been near-total colectomy with right lower quadrant ostomy. There are 2 surgical drains in the pelvis. There is a small amount of ascites. No bowel obstruction or free air. There are some stable ill-defined enhancing liver metastases. There are some stable gallstones in the gallbladder. No gallbladder wall thickening. Stable bilateral renal cysts. There is a small left pleural effusion. There is some linear atelectasis in the lung bases. Heart size is grossly normal. Some small bowel loops are mildly dilated measuring up to 4 cm, however, there is no convincing transition point. Extensive degenerative changes of the spine and pelvis. No suspicious bony lesions. IMPRESSION: 1. Interval total colectomy. There is mild dilation of some small bowel loops but no convincing obstruction. This suggests ileus is most likely. 2. [id number] ascites. 3. Small left pleural effusion and some linear atelectasis in the bases. 4. Liver metastases. 5. Cholelithiasis. [facility]
--- NOTE | 2016-05-30 15:24 | PROGRESS NOTE ---
DATE: 05/30/2016 SUBJECTIVE: The patient is resting comfortably in bed. He has no complaints this morning. OBJECTIVE: Vital Signs: Temperature 98.6 degrees, blood pressure 117/77, heart rate 95, respirations 18, O2 saturation is 98% on room air. General: This is an elderly male, lying in bed, in no acute distress. Head: Normocephalic, atraumatic. Heart: S1, S2. Normal. Regular rate and rhythm. Lungs: Clear to auscultation bilaterally. No wheezes. No rales. No rhonchi. Abdomen: Positive bowel sounds. Soft, nontender, nondistended. Extremities: No edema. No cyanosis. Neurologic: The patient is awake and alert. Hard of hearing. LABS: None. ASSESSMENT AND PLAN: 1. Perforated metastatic colon cancer status post total abdominal colectomy with ileostomy. Continue with the current management as directed by Dr. Funes and Dr. eDnney. 2. Diabetes mellitus type 2. Continue on sliding scale insulin. 3. Scrotal edema. Continue with scrotal elevation. 4. Nutrition. The patient has been advanced to a GI soft diet. 5. Gastrointestinal prophylaxis. Continue on IV Protonix. 6. Deep vein thrombosis prophylaxis. Continue on heparin. 7. Continue with physical therapy. 8. Disposition. The patient will be discharged to rehab once cleared by the general surgeon and ID.
[2016-05-30 15:41] LABS: AGAP 11; BUN 9 mg/dL (8-22); CALCIUM 8.1 mg/dL (8.8-10.2); CHLORIDE 88 mmol/L (98-107); COSMO 264; GOT 21 U/L (10-34); MAGNESIUM 1.8 mg/dL (1.5-2.7); POTASSIUM 3.5 mmol/L (3.5-5.1); PREALBUMIN 6.9 mg/dL (20-40); SODIUM 126 mmol/L (136-145); TCO2 27 mmol/L (25-35); TRIGLYCERIDES 201 mg/dL (39-160)
[2016-05-30] MEDS: LIPOSYN 20% 500 ML IV SCH (17:11)
[2016-05-30] MEDS: TPN ELECTROLYTES 20 ML, MAGNESIUM SULFATE 5 MEQ, POTASSIUM CHLORIDE 25 MEQ, M.V.I.-12 1... IV SCH ×8 (17:11)
[2016-05-30] MEDS: MORPHINE PCA IV PRN (22:05)
[2016-05-31] MEDS: ZOSYN 4.5 GM/NS 100 ML IV SCH (01:59)
[2016-05-31] MEDS: HUMULIN R SUBQ SCH ×7 (01:59→23:23)
[2016-05-31] MEDS: PROTONIX IV SCH ×2 (02:00→13:27)
[2016-05-31] MEDS: HEPARIN SUBQ SCH ×3 (02:02→16:40)
--- NOTE | 2016-05-31 06:26 | PROGRESS NOTE ---
DATE: 05/31/2016 SUBJECTIVE: Patient doing okay. By report from the , he is not taking in much in the way of p.o. OBJECTIVE: Vital Signs: Patient is currently afebrile. His vital signs have been stable. Is and Os: The ileostomy has had almost a liter of fluid out. LENIN drain has 75 mL of fluid draining. General Examination: No acute distress. Cardiovascular: Regular rate and rhythm. Lungs: Grossly clear. Abdomen: Soft. Appropriately tender to palpation. Incision is healing well. ASSESSMENT AND PLAN: A 70-year-old male status post total abdominal colectomy for metastatic colon cancer. Postoperative state. At this time, he does have return of bowel function, although I do not think he is taking enough calories by mouth to be able to get him off of his total parenteral nutrition at this time. We will order a calorie count. We will likely remove his mohsen tomorrow.
[2016-05-31 06:45] LABS: HEMATOCRIT 39.4 % (42.0-52.0); HEMOGLOBIN 11.7 g/dL (14.0-18.0); MCH 32.4 PG (27-31); MCHC 29.7 g/dL (33-37); MCV 109.1 FL (81-99); MPV 10.9 FL (7.4-10.4); RBC 3.61 XMIL (4.7-6.1)
--- NOTE | 2016-05-31 06:48 | PROGRESS NOTE ---
DATE: 05/31/2016 PRESENT ILLNESS: The patient is status post surgery for a perforated colon, adenocarcinoma with metastatic disease in the liver and complicated by intra-abdominal abscesses. MEDICATIONS: The patient is receiving Zosyn as a single agent. PHYSICAL EXAMINATION: Vital Signs: Temperature is 98.6 degrees, pulse 82, respirations 20, blood pressure 126/64. General: This is a fairly healthy-appearing, elderly male. He is in no acute distress. Lungs: Clear to auscultation. Cardiovascular: Heart rate is regular. Abdomen: Soft and nontender. The patient's incision is intact. There is an ostomy and it is functioning well. A drain also is in place. LAB AND X-RAY: There is no laboratory from yesterday and none from today. The patient did have a CAT scan yesterday and it showed that there are no further abscesses. There is ascites present and also cholelithiasis. ASSESSMENT AND PLAN: I am going to go ahead and stop the patient's antibiotics today. I am going to repeat his CBC tomorrow because he did have a leukocytosis. COMORBIDITIES: The patient's comorbidity is that unfortunately he had a perforated colon cancer with metastatic disease and formation of intra-abdominal abscesses. The patient also is a diabetic. [facility]
[2016-05-31] MEDS: TOPROL XL PO SCH (08:55)
[2016-05-31] MEDS ORDERED: LEVEMIR SUBQ SCH (09:00)
[2016-05-31 09:38] LABS: AGAP 11; ALBUMIN 2.4 g/dL (3.5-5.0); ALKALINE PHOSPHATASE 67 U/L (32-122); BUN 10 mg/dL (8-22); CALCIUM 8.2 mg/dL (8.8-10.2); CHLORIDE 91 mmol/L (98-107); COSMO 273; GOT 17 U/L (10-34); GPT 14 U/L (10-44); MAGNESIUM 1.9 mg/dL (1.5-2.7); POTASSIUM 3.8 mmol/L (3.5-5.1); SODIUM 130 mmol/L (136-145); TCO2 28 mmol/L (25-35); TOTAL BILIRUBIN 0.27 mg/dL (0.20-1.00); TOTAL PROTEIN 6.5 g/dL (6.3-8.3)
[2016-05-31] MEDS: SODIUM CHLORIDE 0.9% INJ SCH (13:27)
[2016-05-31] MEDS ORDERED: SODIUM PHOSPHATE 40 MMOL in NS 250 ML IV ONE (15:22)
--- NOTE | 2016-05-31 15:44 | PROGRESS NOTE ---
DATE: 05/31/2016 SUBJECTIVE: The patient does not have an appetite. Otherwise, he has no other complaints. OBJECTIVE: Vital Signs: Temperature 98 degrees, blood pressure 136/67, heart rate 97, respirations 18, O2 saturations 98% on room air. General: This is an elderly male, lying in bed, in no acute distress. Head: Normocephalic, atraumatic. Heart: S1, S2. Normal. Regular rate and rhythm. Lungs: Clear to auscultation bilaterally. No wheezes, no rales. No rhonchi. Abdomen: Positive bowel sounds. Soft, nontender, nondistended. Extremities: No edema. No cyanosis. No calf tenderness. Neurologic: The patient is alert and oriented x3. LABORATORY: White blood cell count 9.5, hemoglobin 11, hematocrit 39, platelets 342,000. Sodium 130, potassium 3.8, chloride 91, CO2 28, BUN 10, creatinine 0.8, glucose 334. Phosphorus 2.1. ASSESSMENT AND PLAN: 1. Perforated metastatic colon cancer status post total abdominal colectomy with ileostomy. Management as per Dr. Funes and Dr. Denney. 2. Uncontrolled insulin-dependent diabetes mellitus type 2. We will increase the patient's Levemir dosage to 35 units subcutaneous twice a day. 3. Nutrition. The patient states that he does not have an appetite. We will continue with nutritional supplements. 4. Hypophosphatemia. We will replace the patient's phosphorus was sodium phosphate. 5. Deep vein thrombosis prophylaxis. Continue on heparin. 6. Gastrointestinal prophylaxis. Continue on IV Protonix. 7. Continue with physical therapy. 8. Disposition. The patient will be discharged to rehab once cleared by the general surgeon and Infectious Disease.
--- NOTE | 2016-05-31 16:15 | PALLIATIVE CARE PROGRESS NOTE ---
DATE: 05/31/2016 SUBJECTIVE: Mr. Kelly states that he is doing fine. He does complain of nausea. He states that his [employer] pump is effective in managing his pain. OBJECTIVE: General: This is a 70-year-old, male who does not appear to be in any acute distress. HEENT: Atraumatic, normocephalic. Cardiovascular: Regular rate and rhythm. Pulmonary: Clear. Respirations nonlabored. Abdomen: Soft. Mr. Christianson incision is intact. There is an ostomy to the right lower quadrant. Skin: Warm and dry. ASSESSMENT AND PLAN: Mr. Kelly' son is at the bedside and states that the plan is to discharge to rehab and then follow up with Dr. Yoon regarding palliative chemotherapy. The palliative care nurse navigator has met with Mr. Kelly and his to discuss the outpatient palliative care program, which I think Mr. Kelly is appropriate for. The palliative care team will continue to follow until discharge. Dictated by TIARRA Hercules for Kevin Dias MD
[2016-05-31] MEDS: LIPOSYN 20% 500 ML IV SCH (16:39)
[2016-05-31] MEDS: TPN ELECTROLYTES 20 ML, MAGNESIUM SULFATE 5 MEQ, POTASSIUM CHLORIDE 25 MEQ, M.V.I.-12 1... IV SCH ×8 (16:45)
[2016-05-31] MEDS: LEVEMIR SUBQ SCH (23:21)
[2016-06-01] MEDS: SODIUM CHLORIDE 0.9% INJ SCH ×3 (02:00→14:10)
[2016-06-01] MEDS: HEPARIN SUBQ SCH ×3 (02:00→18:16)
[2016-06-01] MEDS: PROTONIX IV SCH ×2 (02:00→14:10)
[2016-06-01] MEDS: LR 1,000 ML IV SCH (02:29)
[2016-06-01] MEDS: HUMULIN R SUBQ SCH ×6 (02:29→22:24)
--- NOTE | 2016-06-01 06:53 | PROGRESS NOTE ---
DATE: 05/04/2016 SUBJECTIVE: Patient doing okay. His p.o. intake is improved somewhat by his ; overall, still not having a large amount of p.o. His calorie count is currently underway. OBJECTIVE: Vital Signs: Patient is currently afebrile. His vital signs have been stable. His ileostomy has over 600 reported out. His LENIN drain has over 50 reported out. External exam no acute distress. Cardiovascular: Regular rate and rhythm. Lungs: Grossly clear. Abdomen: Soft, appropriately tender. Incision is healing well. Ileostomy functioning with appliance in place. ASSESSMENT/PLAN: A 70-year-old, male status post total abdominal colectomy for metastatic colon cancer. 1. Postoperative state this time: Patient is clinically doing relatively well. We will have the nurses remove mohsen. We are still making arrangements for rehab. We will also continue calorie count. If we can assess that he has got enough p.o. intake to satisfy his caloric needs, will stopped his TPN. Dr. Mackey will evaluate the patient while I am gone this weekend. 2. Diabetes: At this time, his blood sugar seems to be over 300. He also appears to have a rash on his face. We will defer this to the hospitalist service.
[2016-06-01 07:21] LABS: BASO% 0.4 % (0.0-0.8); EOS# 0.23 X1000 (0.0-0.7); EOS% 1.7 % (0.0-10.0); HEMATOCRIT 37.8 % (42.0-52.0); HEMOGLOBIN 12.6 g/dL (14.0-18.0); LYMPH# 1.37 X1000 (1.2-3.4); MANUAL DIFF NEEDED? NO; MCH 28.4 PG (27-31); MCHC 33.3 g/dL (33-37); MCV 85.3 FL (81-99); MONO% 10.9 % (1.7-9.3); MPV 10.2 FL (7.4-10.4); PLT 464 X1000 (130-400); RBC 4.43 XMIL (4.7-6.1)
[2016-06-01 07:25] LABS: AGAP 5; ALBUMIN 2.4 g/dL (3.5-5.0); BUN 10 mg/dL (8-22); CHLORIDE 91 mmol/L (98-107); COSMO 274; MAGNESIUM 1.9 mg/dL (1.5-2.7); POTASSIUM 3.9 mmol/L (3.5-5.1); SODIUM 130 mmol/L (136-145); TCO2 34 mmol/L (25-35)
[2016-06-01] MEDS ORDERED: VANCOMYCIN IV PER PHARMACY MISC SCH (08:00)
[2016-06-01] MEDS: ZOFRAN IV PRN (08:22)
[2016-06-01] MEDS: TOPROL XL PO SCH (08:26)
[2016-06-01] MEDS: LEVEMIR SUBQ SCH ×2 (08:27→22:23)
--- NOTE | 2016-06-01 09:02 | PROGRESS NOTE ---
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 In addition, the patient previously had intra-abdominal abscesses secondary to the perforation. MEDICATIONS: The patient is on no antibiotics at this time. PHYSICAL EXAMINATION: Vital Signs: Temperature is 98.9 degrees, pulse 81, respirations 12, blood pressure 115/57. Generally: This is a slightly obese elderly male who is in no acute distress. Lungs: Clear to auscultation. Cardiovascular: Regular heart rate. Abdomen: Soft and nontender. The incision is intact. The ostomy is functioning. A drain is in place. Extremities: The patient has a PICC in the right arm. The PICC site is not erythematous or swollen. LAB AND X-RAY: There is no new x-ray. As far as the lab goes, the patient's creatinine is 0.8. GFR is greater than 60. CBC, unfortunately, shows that the white count has increased to 13,740, hemoglobin 12.6, and platelet count 464,000. ASSESSMENT AND PLAN: The patient, after I stopped the antibiotics, has an increase in his white count. He is not febrile but given that the white count is going high, I think that an infection is possible. My plan is to get 2 blood cultures and then to start the patient on a combination of vancomycin and Zosyn. COMORBIDITIES: Include he has a perforated colonic cancer with metastatic disease and formation of intra-abdominal abscesses. The last CT scan showed that the abscesses had cleared. The patient also is a diabetic.
[2016-06-01] MEDS: ZOSYN 3.375 GM/NS 50 ML IV SCH ×3 (10:52→22:23)
[2016-06-01] MEDS: VANCOMYCIN 2 GM in NS 500 ML IV SCH (14:10)
[2016-06-01] MEDS: HYDROCORTISONE 0.5% CREAM TOP SCH ×2 (15:01→22:24)
--- NOTE | 2016-06-01 15:21 | PROGRESS NOTE ---
DATE: 06/01/2016 SUBJECTIVE: The patient is resting comfortably in bed. He is still not be eating very much as per his . His blood sugars are running in the 300s despite daily increases in insulin coverage. OBJECTIVE: Vital Signs: Temperature 98.9 degrees, blood pressure 115/57, heart rate 81, respirations 12, O2 saturations 97% on room air. General: This is a chronically ill-appearing elderly male lying in bed in no acute distress. Head: Normocephalic, atraumatic. Heart: S1, S2. Normal. Regular rate and rhythm. Lungs: Clear to auscultation bilaterally. No wheezing. No rales. No rhonchi. Abdomen: Positive bowel sounds. Soft. Nontender. Extremities: No edema. No cyanosis. No calf tenderness. Neurologic: The patient is awake and alert. No focal neurologic deficits noted. LABS: White blood cell count 13, hemoglobin 12, hematocrit 37, platelets 464,000. Sodium 130, potassium 3.9, chloride 91, CO2 34, BUN 10, creatinine 0.8, glucose 353, magnesium 1.9, phosphorus 2.5. ASSESSMENT AND PLAN: 1. Perforated metastatic colon cancer status post total abdominal colectomy with ileostomy. The patient's intravenous antibiotics were restarted today. Further management as per Dr. Denney and Dr. Funes. 2. Hypophosphatemia. Will replace the patient's phosphorus. 3. Uncontrolled insulin-dependent diabetes mellitus type 2. Will increase the patient's Levemir dosage to 40 units subcutaneous twice a day. 4. Nutrition. We will continue to encourage the patient to eat more. Continue with TPN. 5. Leukocytosis. The antibiotics have been reinitiated by Dr. Denney. Will continue to monitor the white blood cell count closely. 6. Gastrointestinal prophylaxis. Continue on IV Protonix. 7. Continue with physical therapy.
[2016-06-01] MEDS: TPN ELECTROLYTES 20 ML, MAGNESIUM SULFATE 5 MEQ, POTASSIUM CHLORIDE 25 MEQ, M.V.I.-12 1... IV SCH ×8 (17:39)
[2016-06-01] MEDS: LIPOSYN 20% 500 ML IV SCH (17:54)
[2016-06-01] MEDS: NEUTRA-PHOS PO SCH ×2 (18:15→22:24)
[2016-06-02] MEDS: HUMULIN R SUBQ SCH ×7 (01:26→21:20)
[2016-06-02] MEDS: HEPARIN SUBQ SCH ×3 (01:26→17:47)
[2016-06-02] MEDS: ZOSYN 3.375 GM/NS 50 ML IV SCH ×3 (01:26→14:14)
[2016-06-02] MEDS: PROTONIX IV SCH ×2 (01:26→14:15)
[2016-06-02] MEDS: SODIUM CHLORIDE 0.9% INJ SCH ×2 (01:26→14:15)
[2016-06-02 06:43] LABS: HEMATOCRIT 37.7 % (42.0-52.0); HEMOGLOBIN 12.6 g/dL (14.0-18.0); MCH 28.5 PG (27-31); MCHC 33.4 g/dL (33-37); MCV 85.3 FL (81-99); MPV 10.2 FL (7.4-10.4); RBC 4.42 XMIL (4.7-6.1)
[2016-06-02 06:54] LABS: AGAP 10; ALBUMIN 2.5 g/dL (3.5-5.0); BUN 9 mg/dL (8-22); CALCIUM 8.8 mg/dL (8.8-10.2); CHLORIDE 90 mmol/L (98-107); COSMO 268; POTASSIUM 3.6 mmol/L (3.5-5.1); SODIUM 129 mmol/L (136-145); TCO2 29 mmol/L (25-35)
[2016-06-02] MEDS: TOPROL XL PO SCH (08:41)
[2016-06-02] MEDS: NEUTRA-PHOS PO SCH ×4 (08:41→21:20)
[2016-06-02] MEDS: LEVEMIR SUBQ SCH ×2 (08:41→21:20)
[2016-06-02] MEDS: LR 1,000 ML IV SCH ×2 (11:11→17:47)
[2016-06-02] MEDS: VANCOMYCIN 2 GM in NS 500 ML IV SCH (11:11)
[2016-06-02] MEDS: HYDROCORTISONE 0.5% CREAM TOP SCH ×2 (11:12→21:21)
--- NOTE | 2016-06-02 12:59 | PROGRESS NOTE ---
DATE: 06/02/2016 SUBJECTIVE: Feels well. He is eating breakfast, passing more solid stool out of his ileostomy but does have some colicky abdominal pains at times. PHYSICAL EXAMINATION: No fevers, no tachycardia. Blood pressures are 130/63, O2 saturation 98% on room air.General: He is alert, in no acute distress. Abdomen: Is soft, appropriately tender. Incision clean, dry, intact. [place] were removed. Ostomy is pink, viable with thick liquid stool in the bag. Reviewed his labs. ASSESSMENT AND PLAN: 70-year-old male, status post total colectomy with secondary perforated sigmoid cancer and overall doing well. His ostomy is functioning appropriately, seems to be thickening up and of an adequate output. His physical therapy is improving as far as his strength and he is tolerating a diet. Continue to monitor. I think he is progressing well. Physical therapy is going to be his main issue and ultimate disposition.
[2016-06-02] MEDS ORDERED: SODIUM PHOSPHATE 40 MMOL in NS 250 ML IV ONE (16:00)
--- NOTE | 2016-06-02 16:32 | PROGRESS NOTE ---
DATE: 06/02/2016 SUBJECTIVE: The patient feels stronger today. He walked around the nurse's station several times with physical therapy yesterday. OBJECTIVE: Vital Signs: Temperature 98.7 degrees, blood pressure 125/65, heart rate 88, respirations 18, O2 saturations 96% on room air. General: This is an elderly male, lying comfortably in bed, in no acute distress. Head: Normocephalic, atraumatic. Heart: S1, S2. Normal. Regular rate and rhythm. Lungs: Clear to auscultation bilaterally. No wheezes, no rales. No rhonchi. Abdomen: Positive bowel sounds. Soft, nontender, nondistended. Extremities: No edema. No cyanosis. Neurologic: The patient is awake and alert. LABS: White blood cell count 11. Hemoglobin 12. Hematocrit 37, platelets 498,000. Sodium 129, potassium 3.6, chloride 90, CO2 29, BUN 9, creatinine 0.8, glucose 285. ASSESSMENT AND PLAN: 1. Perforated metastatic colon cancer status post total abdominal colectomy with ileostomy. Continue with IV antibiotic therapy. General Surgery and ID are following. 2. Hyperphosphatemia. The patient is currently on Neutra-Phos. 3. Uncontrolled insulin-dependent diabetes mellitus type 2. Continue on Levemir 40 units subcutaneous twice a day. 4. Leukocytosis. Improved. The patient is currently on Zosyn. 5. Deep vein thrombosis prophylaxis. Continue on heparin. 6. Gastrointestinal prophylaxis. Continue on IV Protonix. 7. Continue with physical therapy. 8. Disposition. The patient will be discharged to rehab once cleared by Dr. Denney and Dr. Funes.
[2016-06-02] MEDS: TPN ELECTROLYTES 20 ML, MAGNESIUM SULFATE 5 MEQ, POTASSIUM CHLORIDE 25 MEQ, M.V.I.-12 1... IV SCH ×8 (17:16)
[2016-06-02] MEDS: LIPOSYN 20% 500 ML IV SCH (17:46)
[2016-06-02] MEDS: MORPHINE PCA IV PRN (19:30)
[2016-06-02] MEDS: ZOSYN 3.375 GM in NS 100 ML IV SCH (21:20)
[2016-06-03] MEDS: ZOSYN 3.375 GM in NS 100 ML IV SCH ×4 (03:22→20:41)
[2016-06-03] MEDS: PROTONIX IV SCH ×2 (03:22→13:36)
[2016-06-03] MEDS: SODIUM CHLORIDE 0.9% INJ SCH ×2 (03:22→13:36)
[2016-06-03] MEDS: HEPARIN SUBQ SCH ×3 (03:22→17:17)
[2016-06-03] MEDS: HUMULIN R SUBQ SCH ×6 (03:23→20:41)
[2016-06-03 06:30] LABS: MANUAL DIFF NEEDED? NO
[2016-06-03 06:33] LABS: BASO% 0.7 % (0.0-0.8); EOS# 0.27 X1000 (0.0-0.7); EOS% 2.4 % (0.0-10.0); HEMATOCRIT 35.8 % (42.0-52.0); IMM GRAN# 0.11 X1000 (0.0-0.04); LYMPH# 1.29 X1000 (1.2-3.4); LYMPH% 11.4 % (20.5-51.1); MCH 28.4 PG (27-31); MCHC 33.5 g/dL (33-37); MCV 84.8 FL (81-99); MONO# 1.37 X1000 (0.11-0.59); MONO% 12.1 % (1.7-9.3); MPV 10.1 FL (7.4-10.4); NEUT% 72.4 % (42.2-75.2); PLT 552 X1000 (130-400); RBC 4.22 XMIL (4.7-6.1)
[2016-06-03] MEDS ORDERED: INSULIN PEN NEEDLES ONE (06:44)
[2016-06-03 06:59] LABS: AGAP 10; ALBUMIN 2.4 g/dL (3.5-5.0); BUN 10 mg/dL (8-22); CALCIUM 8.3 mg/dL (8.8-10.2); CHLORIDE 93 mmol/L (98-107); COSMO 272; POTASSIUM 4.2 mmol/L (3.5-5.1); SODIUM 132 mmol/L (136-145); TCO2 29 mmol/L (25-35)
[2016-06-03] MEDS: LR 1,000 ML IV SCH ×2 (09:03→16:10)
[2016-06-03] MEDS: LEVEMIR SUBQ SCH ×2 (09:04→20:41)
[2016-06-03] MEDS: NEUTRA-PHOS PO SCH (09:05)
[2016-06-03] MEDS: TOPROL XL PO SCH (09:05)
[2016-06-03] MEDS: HYDROCORTISONE 0.5% CREAM TOP SCH ×2 (09:16→20:43)
--- NOTE | 2016-06-03 11:23 | PROGRESS NOTE ---
DATE: 06/03/2016 SUBJECTIVE: Feels well. Having good ostomy output. No other issues. His appetite is improving, as is his activity. PHYSICAL EXAMINATION: Vital Signs: He is afebrile. No tachycardia. Blood pressure 134/71. Oxygen saturation 98% on room air. General: He is alert, no acute distress. Incision is clean, dry, intact. Ostomy is pink, viable with thick liquid stool in the bag. LABORATORY DATA: I have reviewed his labs. ASSESSMENT AND PLAN: This is a 70-year-old male, status post total colectomy who is doing well. Physical therapy and nutrition are main issues at this point. We will follow his calorie counts and stop supplemental parenteral nutrition as indicated.
[2016-06-03] MEDS: VANCOMYCIN 2 GM in NS 500 ML IV SCH (12:09)
--- NOTE | 2016-06-03 14:35 | PROGRESS NOTE ---
DATE: 06/03/2016 SUBJECTIVE: The patient has no complaints. He states that he ate some of his breakfast this morning. No acute events noted overnight. OBJECTIVE: Vital Signs: Temperature 98.1 degrees, blood pressure 135/70, heart rate 88, respirations 18, O2 saturation is 98% on room air. General: This is an elderly male, lying in bed, in no acute distress. Head: Normocephalic, atraumatic. Heart: S1, S2. Normal. Regular rate and rhythm. Lungs: Clear to auscultation bilaterally. No crackles. No rales. Abdomen: Positive bowel sounds. Soft, nontender, nondistended. Extremities: No edema. No cyanosis. No calf tenderness. Neurologic: The patient is awake and alert. LABS: White blood cell count 11, hemoglobin 12, hematocrit 35, platelets 552,000. Sodium 132, potassium 4.2, chloride 93, CO2 29, BUN 10, creatinine 0.7, glucose 257. ASSESSMENT AND PLAN: 1. Perforated metastatic colon cancer status post total abdominal colectomy with ileostomy. The patient's white blood cell count is coming down. Continue on IV antibiotic therapy as directed by Dr. Denney. Also general surgery is following. 2. Uncontrolled insulin-dependent diabetes mellitus type 2. Continue on Levemir 40 units subcutaneous twice a day. Hopefully the patient's blood sugars will improve once the TPN has been discontinued. 3. Leukocytosis. Slowly improving. Continue on IV Zosyn. 4. Hyponatremia. Improved. 5. Severe protein calorie malnutrition. The patient has been encouraged to eat more. He is also on TPN. 6. Deep vein thrombosis prophylaxis. Continue on heparin 5000 units subcutaneous every 8 hours. 7. Continue with physical therapy. 8. Disposition. The patient will be discharged to rehab once cleared by Dr. Denney and Dr. Funes.
[2016-06-03] MEDS: TPN ELECTROLYTES 20 ML, MAGNESIUM SULFATE 5 MEQ, POTASSIUM CHLORIDE 25 MEQ, M.V.I.-12 1... IV SCH ×8 (16:03)
[2016-06-03] MEDS: LIPOSYN 20% 500 ML IV SCH (16:19)
[2016-06-04] MEDS: SODIUM CHLORIDE 0.9% INJ SCH ×2 (02:02→14:30)
[2016-06-04] MEDS: ZOSYN 3.375 GM in NS 100 ML IV SCH ×2 (02:02→10:25)
[2016-06-04] MEDS: PROTONIX IV SCH ×2 (02:03→14:30)
[2016-06-04] MEDS: HUMULIN R SUBQ SCH ×6 (02:03→20:53)
[2016-06-04] MEDS: HEPARIN SUBQ SCH ×3 (02:03→16:58)
--- NOTE | 2016-06-04 06:05 | PROGRESS NOTE ---
DATE: 06/04/2016 SUBJECTIVE: The patient is doing okay. I reviewed his overall p.o. intake. Seems to be taking about 50% of his meals. At this point, no other major issues. OBJECTIVE: Vital Signs: Patient is currently afebrile. His vital signs have been stable. General Examination: In no acute distress. Alert, interactive. Cardiovascular: Regular rate and rhythm. Lungs: Grossly clear. Abdomen: Soft, appropriately tender. Incision is healing well. Alan-Zhang drain with minimal output and removed. Ileostomy functioning with thickened stool coming out. ASSESSMENT/PLAN: A 70-year-old, male status post total abdominal colectomy for metastatic colon cancer. 1. Postoperative state. At this time, the patient is clinically doing well. We removed his mohsen. Removed his Alan-Zhang drain. I will also 1/2 the rate of his TPN to see if we can encourage more p.o. intake. Once he is off his TPN and taking in all calories by p.o., he can likely be transferred to a rehab facility. 2. Diabetes. At this time, his blood sugar still seems to be above 200. At this point, I am willing to keep his blood sugar above 200 as long as we look at caloric intake, we can manage his diabetes with medications.
[2016-06-04 07:03] LABS: MANUAL DIFF NEEDED? NO
[2016-06-04 07:22] LABS: BASO% 0.6 % (0.0-0.8); EOS% 2.7 % (0.0-10.0); HEMATOCRIT 36.1 % (42.0-52.0); IMM GRAN# 0.14 X1000 (0.0-0.04); IMM GRAN% 1.3 % (0.0-0.5); LYMPH# 1.26 X1000 (1.2-3.4); LYMPH% 11.3 % (20.5-51.1); MCHC 33.2 g/dL (33-37); MCV 84.3 FL (81-99); MONO# 1.39 X1000 (0.11-0.59); MONO% 12.5 % (1.7-9.3); MPV 10.1 FL (7.4-10.4); NEUT% 71.6 % (42.2-75.2); PLT 600 X1000 (130-400); RBC 4.28 XMIL (4.7-6.1)
[2016-06-04 07:50] LABS: AGAP 16; ALBUMIN 2.3 g/dL (3.5-5.0); BUN 11 mg/dL (8-22); CALCIUM 8.7 mg/dL (8.8-10.2); CHLORIDE 92 mmol/L (98-107); COSMO 270; POTASSIUM 4.2 mmol/L (3.5-5.1); SODIUM 131 mmol/L (136-145); TCO2 23 mmol/L (25-35)
[2016-06-04] MEDS: LEVEMIR SUBQ SCH ×2 (10:25→20:54)
[2016-06-04] MEDS: TOPROL XL PO SCH (10:28)
[2016-06-04] MEDS: HYDROCORTISONE 0.5% CREAM TOP SCH ×2 (10:32→20:55)
[2016-06-04] MEDS ORDERED: INSULIN PEN NEEDLES ONE (11:50)
[2016-06-04] MEDS: VANCOMYCIN 2 GM in NS 500 ML IV SCH (14:27)
[2016-06-04] MEDS: ZOFRAN IV PRN (14:28)
[2016-06-04] MEDS: ZOSYN 3.375 GM/NS 50 ML IV SCH ×2 (16:57→20:54)
[2016-06-04] MEDS: LIPOSYN 20% 500 ML IV SCH (16:57)
[2016-06-04] MEDS: TPN ELECTROLYTES 20 ML, MAGNESIUM SULFATE 5 MEQ, POTASSIUM CHLORIDE 25 MEQ, M.V.I.-12 1... IV SCH ×8 (17:23)
--- NOTE | 2016-06-04 18:11 | PROGRESS NOTE ---
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 In addition, he had intra-abdominal abscess due to the perforation. The patient was on antibiotics and the antibiotics were stopped; however, the patient's white count increased again. Blood cultures were drawn which are sterile, and the patient was started back on a combination of vancomycin and Zosyn. MEDICATIONS: As mentioned above, the patient is on vancomycin and Zosyn. This is day 3 of both of those antibiotics. PHYSICAL EXAMINATION: Vital Signs: Temperature is 98 degrees, pulse 83, respirations 16, blood pressure 138/68. General: This is a fairly healthy-appearing, elderly male. He does not talk much. When I asked him a question he does not answer it usually. Lungs: Clear to auscultation. Cardiovascular: Regular heart rate. Abdomen: Soft and nontender. The patient's ileostomy is functioning well. The patient's incision is intact. There is some erythema in part of the incision. The patient had a drain in place. This was removed today by Dr. Funes. Extremities: Patient has a PICC in the right arm. The site of the PICC is not swollen or erythematous. LAB AND X-RAY: There is no new x-ray. The patient's CBC today showed that the white count had decreased 11,130, hemoglobin is 12, and platelet count is 600,000. Creatinine is 0.7. GFR is greater than 60. Blood cultures are sterile. ASSESSMENT AND PLAN: The patient had leukocytosis after stopping antibiotics. They have been restarted and I plan to keep them going for a while yet. COMORBIDITY: The patient's comorbidities, the main is he has a perforated adenocarcinoma with metastatic liver disease. There was a history of intra-abdominal abscesses; however, on the last CAT scan it appeared that they had cleared.
--- NOTE | 2016-06-04 19:20 | PROGRESS NOTE ---
DATE: 06/04/2016 SUBJECTIVE: Patient looks well. He is sitting in bed. Has gotten up a little bit. He is not eating very much unfortunately, not much appetite. OBJECTIVE: Vital signs: Blood pressure 138/68, heart rate of 83, respiratory 16, temperature 98 degrees, 99% on room air, no temperature. Cardiovascular: Regular rate and rhythm. Pulmonary: Bilateral breath sounds. Clear to auscultation. GI: Soft, some tenderness, nondistended. Bowel sounds were positive but diminished. He did have some little bit erythema at the top portion of his incision. Ostomy looks intact. He had stool within the ostomy contents. PROBLEM LIST: 1. Metastatic colon cancer with perforation status post exploratory laparoscopy and ostomy managed by surgery. He is being weaned off his TPN now. Hopefully that will stimulate his appetite and work on ambulating and follow. 2. Diabetes still not controlled. He is on Levemir 40 b.i.d. I think once the TPN is stopped that will likely improve. 3. Colon cancer aware. Trying to stabilize him in case he needs other therapy although I think at this point it is already metastatic to liver. 4. Disposition. Plan to pursue rehab hopefully in the next couple days. He needs to be off of TPN but I think we are probably heading in the correct direction. White count is still somewhat elevated. He is still on vancomycin and Zosyn which the doses have been adjusted. I think Dr. Denney had previously been consulted and will reevaluate the patient today, make some recommendations from that standpoint.
[2016-06-05] MEDS: HUMULIN R SUBQ SCH ×6 (02:21→20:52)
[2016-06-05] MEDS: HEPARIN SUBQ SCH ×3 (02:21→17:58)
[2016-06-05] MEDS: PROTONIX IV SCH ×2 (02:21→14:24)
[2016-06-05] MEDS: SODIUM CHLORIDE 0.9% INJ SCH ×2 (02:21→14:24)
[2016-06-05] MEDS: ZOSYN 3.375 GM/NS 50 ML IV SCH ×4 (04:14→20:49)
[2016-06-05 06:35] LABS: MANUAL DIFF NEEDED? NO
[2016-06-05 06:41] LABS: BASO% 0.6 % (0.0-0.8); EOS# 0.29 X1000 (0.0-0.7); EOS% 2.5 % (0.0-10.0); HEMATOCRIT 35.4 % (42.0-52.0); IMM GRAN# 0.12 X1000 (0.0-0.04); LYMPH# 1.39 X1000 (1.2-3.4); MCH 28.6 PG (27-31); MCHC 33.9 g/dL (33-37); MCV 84.5 FL (81-99); MONO# 1.42 X1000 (0.11-0.59); MONO% 12.3 % (1.7-9.3); MPV 9.7 FL (7.4-10.4); NEUT% 71.6 % (42.2-75.2); PLT 572 X1000 (130-400); RBC 4.19 XMIL (4.7-6.1)
[2016-06-05 07:01] LABS: AGAP 12; BUN 8 mg/dL (8-22); CALCIUM 8.6 mg/dL (8.8-10.2); CHLORIDE 94 mmol/L (98-107); COSMO 263; MAGNESIUM 1.8 mg/dL (1.5-2.7); POTASSIUM 3.8 mmol/L (3.5-5.1); SODIUM 131 mmol/L (136-145); TCO2 25 mmol/L (25-35)
--- NOTE | 2016-06-05 07:07 | PROGRESS NOTE ---
DATE: 06/05/2016 SUBJECTIVE: The patient is doing okay. Still does not appear to be taking enough adequate p.o. to get off TPN. We did 1/2 his rate of TPN yesterday. No major issues reported. OBJECTIVE: Vital Signs: Patient is currently afebrile. His vital signs are stable. General Examination: No acute distress. Cardiovascular: Regular rate and rhythm. Lungs: Grossly clear. Abdomen: Soft, appropriately tender. Incision is healing well. Alan-Zhang drain has been removed. Ileostomy functioning. ASSESSMENT/PLAN: A 70-year-old, male, status post total abdominal colectomy for metastatic colon cancer. 1. Postoperative state. Overall, the patient is doing clinically well. Will still need to monitor his p.o. intake. We will keep his TPN 1/2 the rate. 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 Once he is off of TPN, we can transfer him to a rehab facility. 2. Multiple medical comorbidities to be managed by the hospitalist service.
--- NOTE | 2016-06-05 08:54 | PROGRESS NOTE ---
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 MEDICATIONS: The patient is on day 4 vancomycin and Zosyn. PHYSICAL EXAMINATION: Vital Signs: Temperature is 99.3 degrees, pulse 90, respirations 18, blood pressure 123/64. General: This is a fairly healthy-appearing, elderly male. He is in no acute distress. Lungs: Clear to auscultation. Cardiovascular: Regular heart rate. Abdomen: Soft and nontender. The patient's incision is intact. The patient has an ileostomy. There was some erythema at the incision. Patient has a PICC in the right arm. LAB AND X-RAY: The GFR is greater than 60. CBC shows a white count of 11,590, hemoglobin 12 and platelet count 572,000. Creatinine is 0.7. ASSESSMENT/COMORBIDITY: The patient has perforated adenocarcinoma with metastatic liver disease. His WBC is coming down. I think his infection is clearing. MTDD
[2016-06-05] MEDS: VANCOMYCIN 2 GM in NS 500 ML IV SCH (09:20)
[2016-06-05] MEDS: LEVEMIR SUBQ SCH ×2 (09:21→20:50)
[2016-06-05] MEDS: HYDROCORTISONE 0.5% CREAM TOP SCH ×2 (09:24→20:49)
[2016-06-05] MEDS: TOPROL XL PO SCH (09:24)
--- NOTE | 2016-06-05 16:36 | PROGRESS NOTE ---
DATE: 06/05/2016 SUBJECTIVE: Today Mr. Kelly referred to be doing fine. Denies any acute problems. OBJECTIVE: Vital signs: Blood pressure is 121/62, pulse of 85, respirations 18, temperature is 98.5 degrees. General: Mr. Kelly is a 70-year-old male. He is in bed. He does not seem to be in any distress. HEENT: Mucosa is pink and moist. Anicteric. Acyanotic. Neck: Supple. Chest: Good air entry bilaterally. No crepitations. No rhonchi. Cardiovascular: Regular rate and rhythm. Abdomen: Soft and distended. There is an ostomy bag on the right lower abdomen. There is a big incision. New surgical wound seems to be healing very well without any signs of infection. LABORATORY DATA: WBC 11.58, hemoglobin is 12.0, platelet count of 572. Chemistry is reviewed. Sodium is 131. CURRENT MEDICATIONS: Have also been reviewed. The patient continues to be on Zosyn and vancomycin total parenteral nutrition and other medications. ASSESSMENT: 1. Metastatic sigmoid cancer with perforation, status post exploration laparotomy and total colectomy. 2. Total abdominal colectomy with end ileostomy. 3. Diabetes mellitus, controlled. 4. Liver metastases from the colon disease. 5. Peritonitis secondary to the perforated sigmoid cancer. Infection is being cleared. Patient is currently on antibiotics and is being followed by Dr. Denney as well.
[2016-06-05] MEDS: LIPOSYN 20% 500 ML IV SCH (17:57)
[2016-06-05] MEDS: LR 1,000 ML IV SCH (17:58)
[2016-06-05] MEDS: TPN ELECTROLYTES 20 ML, MAGNESIUM SULFATE 5 MEQ, POTASSIUM CHLORIDE 25 MEQ, M.V.I.-12 1... IV SCH ×8 (17:58)
[2016-06-06] MEDS: SODIUM CHLORIDE 0.9% INJ SCH ×2 (01:06→13:26)
[2016-06-06] MEDS: PROTONIX IV SCH ×2 (01:06→13:26)
[2016-06-06] MEDS: HEPARIN SUBQ SCH ×3 (01:06→16:40)
[2016-06-06] MEDS: HUMULIN R SUBQ SCH ×6 (01:07→20:44)
[2016-06-06] MEDS: VANCOMYCIN 2 GM in NS 500 ML IV SCH ×2 (01:07→20:44)
[2016-06-06] MEDS: ZOFRAN IV PRN ×2 (01:22→10:35)
[2016-06-06] MEDS: ZOSYN 3.375 GM/NS 50 ML IV SCH ×5 (03:56→23:27)
[2016-06-06 06:43] LABS: MANUAL DIFF NEEDED? NO
[2016-06-06 06:49] LABS: BASO% 0.6 % (0.0-0.8); EOS# 0.29 X1000 (0.0-0.7); HEMATOCRIT 36.8 % (42.0-52.0); HEMOGLOBIN 12.2 g/dL (14.0-18.0); IMM GRAN# 0.08 X1000 (0.0-0.04); IMM GRAN% 0.8 % (0.0-0.5); LYMPH# 1.18 X1000 (1.2-3.4); LYMPH% 12.4 % (20.5-51.1); MCH 27.9 PG (27-31); MCHC 33.2 g/dL (33-37); MONO# 1.06 X1000 (0.11-0.59); MONO% 11.1 % (1.7-9.3); MPV 9.5 FL (7.4-10.4); NEUT% 72.1 % (42.2-75.2); PLT 555 X1000 (130-400); RBC 4.38 XMIL (4.7-6.1)
--- NOTE | 2016-06-06 06:54 | PROGRESS NOTE ---
DATE: 06/06/2016 SUBJECTIVE: Patient doing okay. He appears to have taken in more p.o. over the last 24 hours. No major issues reported by the and no major issues noted in the nurse's notes. OBJECTIVE: Vital Signs: Patient is currently afebrile. His vital signs have been stable. General: No acute distress. Cardiovascular: Regular rate and rhythm. Lungs: Grossly clear. Abdomen: Soft, appropriately tender. Incision is healing okay. Ileostomy functioning. ASSESSMENT/PLAN: A 70-year-old, male status post total abdominal colectomy for metastatic colon cancer. 1. Postoperative state at this time, patient doing well. Will stop his TPN and see how he tolerates purely by p.o. I have placed him on tramadol, and if he can maintain adequate p.o. intake off his TPN we will consider transfer under rehab facility this week. 2. Multiple medical comorbidities being managed by the hospitalist service.
[2016-06-06] MEDS: LEVEMIR SUBQ SCH ×2 (08:56→20:44)
[2016-06-06] MEDS: TOPROL XL PO SCH (08:56)
[2016-06-06] MEDS: HYDROCORTISONE 0.5% CREAM TOP SCH ×2 (09:00→20:44)
--- NOTE | 2016-06-06 11:50 | PROGRESS NOTE ---
DATE: 06/06/2016 SUBJECTIVE: Today, Mr. Kelly referred to be doing fine. According to him, when he went for physical therapy he felt a little dizzy and they had to bring him back. OBJECTIVE: Vital Signs: Stable. Blood pressure is 133/69, pulse of 85, respirations 18, temperature is 98.0. General Examination: Mr. Kelly is a 70-year-old male. He is in bed, in no distress. HEENT: Mucosa is pink and moist. Anicteric. Chest: Good air entry bilaterally. There is a few bibasilar crepitations. Cardiovascular: Regular rate and rhythm. Abdomen: Soft, distended, and tympanic. There is an ostomy bag on the right lower abdominal wall. There is also a big incision in the midline of the anterior abdomen. It looks pretty clean. LABORATORY DATA: WBC is down to 9.52, hemoglobin is 12.2, platelet count of 555,000. Chemistry is none for today. ASSESSMENT: 1. Metastatic sigmoid cancer with perforation, status post exploratory laparotomy and total colectomy. Today is day 17 postop. Patient seems to be doing relatively fine. 2. Abdominal distention, likely from postoperative ileus. The patient will continue to have aggressive physical therapy to help mobilize the gut. 3. Diabetes mellitus, controlled on the current insulin regimen. 4. Liver metastasis from the colon cancer. 5. Peritonitis secondary to perforated sigmoid colon. The patient is currently on antibiotics and is being followed by Infectious Disease. 6. Dizziness. This morning I think it is probably just a combination of patient being in bed for long and medications that he is also getting. We would continue adequate hydration. Encourage adequate hydration and encourage patient to sit up more in bed. 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 I called the pharmacy and they will be looking into it.
[2016-06-06] MEDS: ULTRAM PO PRN ×2 (13:33→21:27)
[2016-06-06 14:32] LABS: AGAP 10; BUN 8 mg/dL (8-22); CALCIUM 8.9 mg/dL (8.8-10.2); CHLORIDE 95 mmol/L (98-107); COSMO 269; POTASSIUM 3.9 mmol/L (3.5-5.1); SODIUM 132 mmol/L (136-145); TCO2 27 mmol/L (25-35)
--- NOTE | 2016-06-06 15:01 | PROGRESS NOTE ---
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 The patient, as a result of the perforation, had intra-abdominal abscesses. MEDICATIONS: This is day 5 of treatment with vancomycin and Zosyn. The patient had previously had antibiotics, but when they were stopped his white count increased. PHYSICAL EXAMINATION: Vital Signs: Temperature is 98 degrees, pulse 85, respirations 18, blood pressure 133/69. General: This is a fairly healthy-appearing, elderly male. He is in no acute distress. His appetite, which had been very poor, is finally beginning to get a little bit better. Lungs: Clear to auscultation. Cardiovascular: Regular heart rate. Abdomen: Soft and not as distended as it was. The patient's incision is intact and the patient's ileostomy is functional. LABORATORY AND X-RAY STUDIES: Laboratory topete, the patient's CBC for today showed a white count of 9520, hemoglobin 12.2, and platelet count 555,000. Creatinine 0.8. GFR is greater than 60. There is no new radiographic study. ASSESSMENT AND PLAN: My assessment is that the patient had an infection that came back once we stopped the antibiotics. Since restarting the antibiotics, the patient is feeling better and his white count is coming down. I probably will keep his current antibiotics, namely vancomycin and Zosyn, going for 2 weeks in view of the fact that when we stopped them before, his white count started going up. COMORBIDITY: He has perforated adenocarcinoma with metastatic liver disease.
[2016-06-07] MEDS: PROTONIX IV SCH ×2 (02:32→12:57)
[2016-06-07] MEDS: HEPARIN SUBQ SCH ×3 (02:32→16:53)
[2016-06-07] MEDS: SODIUM CHLORIDE 0.9% INJ SCH ×2 (02:32→12:57)
[2016-06-07] MEDS: ZOSYN 3.375 GM/NS 50 ML IV SCH (02:34)
[2016-06-07] MEDS: HUMULIN R SUBQ SCH ×3 (06:28→20:56)
--- NOTE | 2016-06-07 06:31 | PROGRESS NOTE ---
DATE: 06/07/2016 SUBJECTIVE: Patient doing well. He is taking NPO. No major issues reported by the . OBJECTIVE: Vital Signs: Patient is currently afebrile. His vital signs have been stable. General Examination: No acute distress. Cardiovascular: Regular rate and rhythm. Lungs: Grossly clear. Abdomen: Soft, appropriately tender. Incision is healing okay. Ileostomy functioning. ASSESSMENT AND PLAN: A 70-year-old, male status post total abdominal colectomy for metastatic colon cancer. 1. Postoperative state. At this time, patient doing well. His total parenteral nutrition has been stopped. He is tolerating orals. He is on tramadol currently. He is currently receiving antibiotics and the duration is as per Dr. Denney with infectious disease but otherwise the patient could be discharged to rehabilitation here at this point. 2. Multiple medical comorbidities being managed by the hospitalist service.
--- NOTE | 2016-06-07 07:30 | PROGRESS NOTE ---
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 The patient had as a result of the perforation, intra -abdominal abscesses. Patient was had been on long-term antibiotics following surgery. We stopped the antibiotics and the patient's white count increased again. The patient was replaced on antibiotics and today, his white count has normalized at 9520. MEDICATIONS: Patient, as far as antibiotics go, is on a combination of vancomycin and Zosyn. PHYSICAL EXAMINATION: Vital Signs: Temperature 97.8 degrees, pulse 76, respirations 18, blood pressure 123/78. Generally: This is a somewhat ill-appearing, elderly male. He is in no distress. Lungs: Clear to auscultation. Cardiovascular: Regular heart rate. Abdomen: Soft and nontender. The incision is in place and the patient does have an ileostomy in place. LAB AND X-RAY STUDIES: CBC today shows that the patient's white count has normalized at 9520. His hemoglobin is 12.2, and his platelet count is 555,000. His creatinine is 0.8. There is no new radiographic study today. ASSESSMENT AND PLAN: I discussed with Dr. Funes and the patient's further antimicrobial therapy. What I plan to do now is to stop the antibiotics and see what happens to the patient's CBC, specifically to see if the white count increases. If it does, then I think the patient will require getting on antibiotics and also looking for the cause of the elevated white count which most likely will involve a CAT scan of the abdomen. COMORBIDITY: He is a diabetic. He had a perforated adenocarcinoma with metastatic liver disease. [facility]ITAL[facility]
[2016-06-07] MEDS: TOPROL XL PO SCH (08:29)
[2016-06-07] MEDS: LEVEMIR SUBQ SCH ×3 (08:29→20:54)
[2016-06-07] MEDS: HYDROCORTISONE 0.5% CREAM TOP SCH ×2 (08:30→20:55)
--- NOTE | 2016-06-07 10:53 | PROGRESS NOTE ---
DATE: 06/07/2016 SUBJECTIVE: This morning Mr. Kelly referred to be doing fine. I just went in and he was about to get his abdominal wound dressing. OBJECTIVE: Vital Signs: Stable. Blood pressure is 117/69, pulse of 85, respirations 18, temperature is 97.2 degrees. General: Mr. Kelly is a 70-year-old male. He is in bed, not seemingly distressed. HEENT: Mucosa is pink and moist. Anicteric. Acyanotic. Neck: Supple. Chest: Good air entry bilaterally. A few bibasilar crepitations. Cardiovascular: Regular rate and rhythm. Abdomen: Soft. Mildly distended and tympanic. Bowel sounds are present. There is an ostomy bag on the right lower abdominal wall. There is also a big surgical incision in the midline. Almost around the periumbilical area there is an area of dehiscence which looks pretty clean. LABORATORY DATA: None for today. CURRENT MEDICATIONS: 1. Heparin 3 times per day for prophylaxis. 2. Levemir 40 b.i.d. 3. Sliding scale. 4. Labetalol p.r.n. 5. Protonix. 6. Tramadol p.r.n. ASSESSMENT: 1. Metastatic sigmoid cancer with perforation status post exploratory laparotomy and total colectomy. Today is day 18 postop. Patient is doing relatively fine. 2. Abdominal distention. Likely from postoperative ileus. Stable. 3. Diabetes mellitus. This is uncontrolled. We are going to increase the insulin Levemir to 45 b.i.d. and continue with moderate sliding scale protocol. 4. Liver metastasis from colon cancer noted. 5. Peritonitis secondary to perforated sigmoid colon. The patient is currently on antibiotics and is being followed by ID as well. 6. Dizziness, improve. I think this was related to medication. The patient's [employer] pump has been discontinued and dizziness is better. 7. Nutritional needs. The patient is currently getting TPN. There were some changes to it yesterday by the dietitian. He seems to be tolerating it. His glucose is slightly better. Will continue with the TPN as we advance his enteral feeding. 8. Disposition. The patient has been in the hospital about 18 days now. I think he definitely has general physical deconditioning and weakness and he will need rehab placement whenever he is ready to be discharged. There is an order put in by Dr. Funes on May 29 for social work evaluation for rehab options.
[2016-06-07] MEDS: ULTRAM PO PRN (20:53)
[2016-06-08] MEDS: HEPARIN SUBQ SCH ×3 (02:42→16:24)
[2016-06-08] MEDS: PROTONIX IV SCH ×2 (02:43→12:25)
[2016-06-08] MEDS: HUMULIN R SUBQ SCH ×4 (06:35→20:49)
[2016-06-08 06:40] LABS: MANUAL DIFF NEEDED? NO
--- NOTE | 2016-06-08 06:42 | PROGRESS NOTE ---
DATE: 06/08/2016 SUBJECTIVE: Patient doing well. Taking NPO. No major issues. OBJECTIVE: Vital Signs: Patient is currently afebrile. His vital signs have been stable. General: No acute distress. Cardiovascular: Regular rate and rhythm. Lungs: Grossly clear. Abdomen: Soft, appropriately tender. Incision is healing well. Ileostomy dysfunction. ASSESSMENT/PLAN: A 70-year-old, male status post total abdominal colectomy for metastatic colon cancer. 1. Postoperative state at this time, patient is likely be able to be discharged to rehab pending other physician's agreement. We will continue current treatment while he is here. 2. Multiple medical comorbidities being managed by the hospitalist service.
[2016-06-08 06:47] LABS: BASO% 0.6 % (0.0-0.8); EOS# 0.28 X1000 (0.0-0.7); EOS% 2.7 % (0.0-10.0); HEMATOCRIT 38.3 % (42.0-52.0); HEMOGLOBIN 12.7 g/dL (14.0-18.0); LYMPH# 1.58 X1000 (1.2-3.4); MCH 28.4 PG (27-31); MCHC 33.2 g/dL (33-37); MCV 85.7 FL (81-99); MONO% 10.4 % (1.7-9.3); MPV 9.4 FL (7.4-10.4); NEUT% 71.3 % (42.2-75.2); PLT 538 X1000 (130-400); RBC 4.47 XMIL (4.7-6.1)
[2016-06-08 07:24] LABS: AGAP 13; BUN 7 mg/dL (8-22); CALCIUM 9.1 mg/dL (8.8-10.2); CHLORIDE 100 mmol/L (98-107); COSMO 274; POTASSIUM 3.5 mmol/L (3.5-5.1); SODIUM 139 mmol/L (136-145); TCO2 26 mmol/L (25-35)
[2016-06-08] MEDS: TOPROL XL PO SCH (08:23)
[2016-06-08] MEDS: LEVEMIR SUBQ SCH ×3 (08:25→20:49)
[2016-06-08] MEDS: ULTRAM PO PRN ×2 (09:45→20:48)
[2016-06-08] MEDS: HYDROCORTISONE 0.5% CREAM TOP SCH ×2 (09:46→20:49)
[2016-06-08] MEDS: SODIUM CHLORIDE 0.9% INJ SCH (12:25)
--- NOTE | 2016-06-08 17:20 | PROGRESS NOTE ---
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 Patient as a result of the perforation had intra-abdominal abscesses and he had been on long-term antibiotics after surgery. We stopped the antibiotics and the patient's white count increased so we started them back and we have discontinued the antibiotics 2 days ago. The patient remains afebrile and his white blood cell count today is 10,530. MEDICATIONS: The patient is on no antibiotics. PHYSICAL EXAMINATION: Vital Signs: Temperature is 98.5 degrees, pulse 84, respirations 18, blood pressure 129/68. General: This is a fairly healthy-appearing, elderly male who is in no acute distress. Today, he was walking in the [place] and made a whole lap on the floor. Lungs: Clear to auscultation. Cardiovascular: Regular heart rate. Abdomen: Soft and nontender. The ostomy is functional. The incision is healing well. LAB AND X-RAY STUDIES: There is no new x-ray study. The lab shows a CBC with a white count of 10,530, hemoglobin 12.7, and platelet count 538,000. Creatinine is 0.8. GFR is greater than 60. ASSESSMENT AND PLAN: The patient has remained afebrile and he does not have a leukocytosis off antibiotics. COMORBIDITY: That he is a diabetic and also he has a perforated adenocarcinoma with metastatic liver disease. I am available to see the patient on a p.r.n. basis. At this time I do not think he needs any further antibiotics.
--- NOTE | 2016-06-08 18:17 | PROGRESS NOTE ---
DATE: 06/08/2016 SUBJECTIVE: This patient states that he is doing better. Family members at the bedside, the son and the . He is not on TPN at this moment but he is not eating enough and he spent the night nauseated. OBJECTIVE: Vital Signs: Temperature 98.2 degrees, pulse 90, respiratory rate 18, blood pressure 114/72, O2 saturation 96 on room air. HEENT: Head normocephalic. No trauma. PERRLA. Neck: Supple. No JVD. No masses. Central trachea. Chest: Clear to auscultation. Mild rales at the bases. Cardiovascular: RRR. No murmurs. Abdomen: Soft, mild to moderately distended with tympanic sounds. Bowel sounds are present. There is an ostomy bag on the right lower abdominal wall that is working fine and also there is a surgical incision in the midline that looks clean and dry. Around the periumbilical area there is an area of dehiscence that is clean. LABORATORY: WBC 10.5, hemoglobin 12.7, hematocrit 38.3, platelets 538,000. Sodium 139, potassium 3.5, chloride 100, bicarbonate 26, BUN 7, creatinine 0.8, glucose 74, calcium 9.1. ASSESSMENT AND PLAN: 1. Metastatic sigmoid cancer complicated with perforation status post exploratory laparotomy and total colectomy, postoperative day #19. This patient is doing fine. He is still complaining of mild abdominal pain/discomfort, positive bowel sounds. 2. Type 2 diabetes. We will continue with the same management for now. We will monitor the blood sugar for 24 more hours to see if we need to do some adjustments. 3. Liver metastasis from colon cancer noted. 4. Peritonitis secondary to perforated sigmoid colon. This patient is currently on antibiotics, Infectious Disease Department is following this patient. 5. Nutritional needs. This patient was on TPN and now we are trying to feed this patient through his mouth. He is tolerating that but he has been nauseated mostly during the night, but we will continue with that and also will continue with p.r.n. nausea medication. 6. Physical deconditioning. This patient is on physical therapy. Probably this patient needs to go to a rehab center but the family states that they prefer to go home with home health and physical therapy at home. 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
[2016-06-09] MEDS: HEPARIN SUBQ SCH ×3 (02:43→17:13)
[2016-06-09] MEDS: PROTONIX IV SCH ×3 (02:43→16:28)
[2016-06-09] MEDS: ZOFRAN IV PRN (02:44)
[2016-06-09] MEDS: HUMULIN R SUBQ SCH ×4 (06:27→21:08)
[2016-06-09 06:51] LABS: MANUAL DIFF NEEDED? NO
[2016-06-09 06:52] LABS: BASO% 0.7 % (0.0-0.8); EOS# 0.35 X1000 (0.0-0.7); EOS% 3.8 % (0.0-10.0); HEMATOCRIT 35.5 % (42.0-52.0); HEMOGLOBIN 11.8 g/dL (14.0-18.0); IMM GRAN# 0.04 X1000 (0.0-0.04); IMM GRAN% 0.4 % (0.0-0.5); LYMPH# 1.55 X1000 (1.2-3.4); LYMPH% 16.9 % (20.5-51.1); MCH 27.9 PG (27-31); MCHC 33.2 g/dL (33-37); MCV 83.9 FL (81-99); MONO# 0.87 X1000 (0.11-0.59); MONO% 9.5 % (1.7-9.3); MPV 9.2 FL (7.4-10.4); NEUT% 68.7 % (42.2-75.2); PLT 516 X1000 (130-400); RBC 4.23 XMIL (4.7-6.1)
[2016-06-09 07:24] LABS: AGAP 12; ALBUMIN 2.7 g/dL (3.5-5.0); ALKALINE PHOSPHATASE 95 U/L (32-122); BUN 8 mg/dL (8-22); CALCIUM 9.1 mg/dL (8.8-10.2); CHLORIDE 97 mmol/L (98-107); COSMO 272; GOT 18 U/L (10-34); GPT 19 U/L (10-44); POTASSIUM 3.7 mmol/L (3.5-5.1); SODIUM 136 mmol/L (136-145); TCO2 27 mmol/L (25-35); TOTAL BILIRUBIN 0.33 mg/dL (0.20-1.00); TOTAL PROTEIN 7.5 g/dL (6.3-8.3)
[2016-06-09] MEDS: TOPROL XL PO SCH (08:23)
[2016-06-09] MEDS: HYDROCORTISONE 0.5% CREAM TOP SCH ×2 (08:24→21:11)
[2016-06-09] MEDS: LEVEMIR SUBQ SCH ×2 (11:10→21:08)
--- NOTE | 2016-06-09 17:15 | PROGRESS NOTE ---
DATE: 06/09/2016 SUBJECTIVE: This patient states that he is doing better. He is not complaining of any specific problem at this point. He is tolerating p.o. He denies any nausea at this moment. The plan is to send this patient home with home health and physical therapy. OBJECTIVE: Vital Signs: Temperature 98.7 degrees, pulse 87, respiratory rate 18, blood pressure 133/69, O2 saturation 95 on room air. HEENT: Head normocephalic. No trauma. PERRLA. Neck: Supple. No JVD. No masses. Central trachea. Chest: Clear to auscultation. Mild rales at the bases. Cardiovascular: RRR. No murmurs. Abdomen: Soft, mild to moderate distention with tympanic sounds, bowel sounds present. There is an ostomy bag on the right lower abdominal wall that is working fine and there is also a surgical incision in the midline that looks clean and dry. Around the periumbilical area there is a dehiscence that is clean. Neurological: The patient is alert, oriented x3. LABORATORY: WBC 9.1, hemoglobin 11.8, hematocrit 35.5, platelets 516,000. Sodium 138, potassium 3.7, chloride 97, bicarbonate 27, BUN 8, creatinine 0.8, glucose 176, calcium 9.1, albumin 2.7. ASSESSMENT AND PLAN: 1. Metastatic sigmoid cancer complicated with perforation status post exploratory laparotomy and total colectomy, postoperative day #20. This patient is doing fine. He is still complaining of mild discomfort, positive bowel sounds, generalized weakness. 2. Type 2 diabetes. Will continue with the same management for now. We will monitor the blood sugar. 3. Liver metastasis from colon cancer noted. 4. Peritonitis secondary to perforated sigmoid colon. This patient is currently on antibiotics. Infectious Disease Department is following this patient. 5. Nutritional needs. This patient was on TPN but now he is tolerating p.o. He has been nauseated on and off. We have p.r.n. nausea medication. 6. Physical deconditioning. This patient is on physical therapy and probably he will go home with home health and physical therapy, his is a nurse.
[2016-06-10] MEDS: HEPARIN SUBQ SCH ×3 (04:00→20:13)
[2016-06-10] MEDS: PROTONIX IV SCH ×3 (04:00→13:34)
[2016-06-10] MEDS: ULTRAM PO PRN (04:48)
[2016-06-10] MEDS: HUMULIN R SUBQ SCH ×4 (06:28→20:14)
[2016-06-10 06:29] LABS: MANUAL DIFF NEEDED? NO
[2016-06-10 06:32] LABS: BASO% 0.4 % (0.0-0.8); EOS% 3.2 % (0.0-10.0); HEMATOCRIT 36.7 % (42.0-52.0); HEMOGLOBIN 12.2 g/dL (14.0-18.0); IMM GRAN# 0.04 X1000 (0.0-0.04); IMM GRAN% 0.4 % (0.0-0.5); LYMPH# 1.62 X1000 (1.2-3.4); LYMPH% 17.1 % (20.5-51.1); MCH 27.8 PG (27-31); MCHC 33.2 g/dL (33-37); MCV 83.6 FL (81-99); MONO# 0.92 X1000 (0.11-0.59); MONO% 9.7 % (1.7-9.3); MPV 9.1 FL (7.4-10.4); NEUT% 69.2 % (42.2-75.2); PLT 498 X1000 (130-400); RBC 4.39 XMIL (4.7-6.1)
[2016-06-10 06:48] LABS: AGAP 12; BUN 8 mg/dL (8-22); CALCIUM 9.3 mg/dL (8.8-10.2); CHLORIDE 98 mmol/L (98-107); COSMO 272; POTASSIUM 3.7 mmol/L (3.5-5.1); SODIUM 135 mmol/L (136-145); TCO2 25 mmol/L (25-35)
[2016-06-10] MEDS: TOPROL XL PO SCH (08:53)
[2016-06-10] MEDS: SODIUM CHLORIDE 0.9% INJ SCH (12:11)
[2016-06-10] MEDS: LEVEMIR SUBQ SCH (12:12)
[2016-06-10] MEDS: HYDROCORTISONE 0.5% CREAM TOP SCH ×2 (12:12→20:13)
[2016-06-10] MEDS ORDERED: LEVEMIR SUBQ SCH ×2 (15:45→21:00)
--- NOTE | 2016-06-10 20:35 | PROGRESS NOTE ---
DATE: 06/10/2016 SUBJECTIVE: This patient is doing better. When I evaluated this patient he was sitting on a chair, a couple days ago he had an episode of low normal blood sugar so I will modified a little bit the insulin from 45 to 40 to prevent hypoglycemia at home. OBJECTIVE: Vital Signs: Temperature 98.6 degrees, pulse 84, respiratory rate 20, blood pressure 138/68, O2 saturation 97 on room air. HEENT: Head normocephalic. No trauma. PERRLA. Neck: Supple. No JVD. No masses. Central trachea. Chest: Clear to auscultation. Mild rales at the bases. Cardiovascular: RRR. No murmurs. Abdomen: Soft, mild to moderate distention with tympanic sounds. Bowel sounds present. There is an ostomy bag on the right lower abdominal wall that is working fine and there is also a surgical incision in the middle that looks clean. Around the periumbilical area there is a dehiscence that is clean. Neurological: The patient is alert and oriented x3. No focal neurological deficits. He is ambulating. LABORATORY: WBC 9.4, hemoglobin 12.2, hematocrit 36.7, platelets 498,000. Sodium 135, potassium 3.7, chloride 98, bicarbonate 25, BUN 8, creatinine 0.8, glucose 169, calcium 9.3. ASSESSMENT AND PLAN: 1. Metastatic sigmoid cancer complicated with perforation status post exploratory laparotomy and total colectomy postoperative day #21. This patient is doing fine. He is not complaining today of abdominal discomfort or pain. Positive bowel sounds. He has generalized weakness. 2. Type 2 diabetes. I decreased a little bit the dose of insulin from 45 to 40 to prevent hypoglycemic episodes even though he had he has been doing fine. 3. Liver metastasis from colon cancer noted. 4. Peritonitis secondary to perforated sigmoid colon. This patient is currently on antibiotics. Infectious Disease Department is following this patient. 5. Nutritional needs. This patient was on TPN but now he is tolerating p.o. He has not been nauseated recently. We have p.r.n. medication for that. 6. Physical deconditioning. This patient is on physical therapy and probably he will go home with home health and physical therapy. His is a nurse. Overall this patient is doing much better, he should be discharged tomorrow if the lab work and vital signs are fine. We have been working to find a place for rehab but the family refuses the rehab center that we have so the who used to be a nurse states that she can take care of him at home with home health and physical therapy at home as well.
[2016-06-11] MEDS: ULTRAM PO PRN (00:07)
[2016-06-11] MEDS: HEPARIN SUBQ SCH ×2 (05:51→11:56)
[2016-06-11] MEDS: PROTONIX IV SCH (05:51)
[2016-06-11 06:32] LABS: MANUAL DIFF NEEDED? NO
[2016-06-11 06:33] LABS: BASO% 0.6 % (0.0-0.8); EOS# 0.31 X1000 (0.0-0.7); EOS% 3.7 % (0.0-10.0); HEMATOCRIT 36.9 % (42.0-52.0); HEMOGLOBIN 12.4 g/dL (14.0-18.0); IMM GRAN# 0.04 X1000 (0.0-0.04); IMM GRAN% 0.5 % (0.0-0.5); LYMPH# 1.48 X1000 (1.2-3.4); LYMPH% 17.7 % (20.5-51.1); MCH 27.9 PG (27-31); MCHC 33.6 g/dL (33-37); MCV 83.1 FL (81-99); MONO# 0.93 X1000 (0.11-0.59); MONO% 11.1 % (1.7-9.3); MPV 9.2 FL (7.4-10.4); NEUT% 66.4 % (42.2-75.2); PLT 471 X1000 (130-400); RBC 4.44 XMIL (4.7-6.1)
--- NOTE | 2016-06-11 06:44 | PROGRESS NOTE ---
DATE: 06/11/2016 SUBJECTIVE: Patient doing well. No major issues. OBJECTIVE: Vital Signs: Patient is currently afebrile. His vital signs have been stable. General: No acute distress. Cardiovascular: Regular rate and rhythm. Lungs: Grossly clear. Abdomen: Abdomen is soft, appropriately tender. Incision is healing well. Ileostomy is functioning. ASSESSMENT/PLAN: A 70-year-old, male status post total abdominal colectomy for metastatic colon cancer. 1. Postoperative state: At this time, patient can be discharged home here in the next 24 hours, if not today. 2. Multiple medical comorbidities currently being managed by the hospitalist service. MTDD
[2016-06-11 06:49] LABS: AGAP 13; BUN 8 mg/dL (8-22); CALCIUM 9.6 mg/dL (8.8-10.2); CHLORIDE 97 mmol/L (98-107); COSMO 274; POTASSIUM 3.9 mmol/L (3.5-5.1); SODIUM 136 mmol/L (136-145); TCO2 26 mmol/L (25-35)
[2016-06-11] MEDS: TOPROL XL PO SCH (09:00)
[2016-06-11] MEDS ORDERED: LEVEMIR SUBQ SCH (09:00)
[2016-06-11] MEDS: HYDROCORTISONE 0.5% CREAM TOP SCH (09:01)
[2016-06-11] MEDS: ZOFRAN IV PRN (10:32)
[2016-06-11] MEDS: HUMULIN R SUBQ SCH (11:02)
[2016-06-11 12:10] VITALS: BP 133/72
--- NOTE | 2016-06-12 11:09 | DISCHARGE SUMMARY ---
ADMISSION DATE: 05/20/2016 DISCHARGE DATE: 06/11/2016 CONSULTATIONS: 1. Dr. Holland Funes with general surgery. 2. Dr. Kayla Yoon with hematology/oncology. 3. Dr. Selvin Denney with infectious disease. 4. TIARRA Hercules with palliative care. 5. Dr. Johnny Lindsay with cardiology. PERTINENT PROCEDURES: 1. Abdomen and pelvis CT showed metastatic disease in the liver. Abscesses in the area around the cecum. Possibility of appendicitis could not be ruled out entirely. However, it is more likely that this is produced by afocal perforation of the distal sigmoid mass. Chololithiasis. 2. Exploratory laparotomy, open core liver biopsy, and a total abdominal colectomy with end- ileostomy performed by Dr. Holland Funes. 3. Echocardiogram. Showed excellent left ventricular systolic function. Normal diastolic function. No valvular abnormalities. Normal pulmonary pressures. 4. Liver biopsy showed metastatic colonic adenocarcinoma. Large intestine resection showed invasive colonic adenocarcinoma. 5. Abdominal and pelvis CT showed interval total colectomy. Mild dilatation of some small bowel but it is not convincing for obstruction, most likely ileus. Small to moderate ascites. Small left pleural effusion and some linear atelectasis in the bases. Liver metastasis. Cholelithiasis. HOSPITAL COURSE: Briefly, Mr. Kelly is a 70-year-old male with a past medical history of diabetes mellitus type 2, coronary artery disease status post CABG, hypertension. Patient reported to the ED because prior to admission he began having abdominal pain which was accompanied with nausea, vomiting, diarrhea. He reported a few episodes of vomiting. When it started he only had diarrhea on 1 day and no further episodes of diarrhea or any bowel movements since then. Upon evaluation in the ED he was found have a distended abdomen with generalized tenderness to touch. He had an elevated white count of 24. He was also found to have an elevated glucose of 521. A CT of the abdomen and pelvis was also performed. It did show stricture and probable mucosal mass in the sigmoid colon, as well as pericecal abscess and perforation in the right lower quadrant which was possibly the sigmoid colon and a partial bowel obstruction, as well as multiple liver masses. Dr. Funes was consulted while the patient was still in the ED and the plan was to take him to surgery in the next a.m. Patient was placed in the ICU with telemetry, as well as started on IV antibiotics and an NG tube was placed. On 05/20 patient did undergo an exploratory laparotomy, open core liver biopsy, as well as total abdominal colectomy with end-ileostomy performed by Dr. Holland Funes. Dr. Kayla Yoon was contacted in reference to the patient's metastatic colorectal cancer and I believe they have planned for outpatient palliative chemo. Dr. Selvin Denney with infectious disease was also involved to help with antibiotics. Patient's liver biopsy did show metastatic colonic adenocarcinoma. The patient did have an episode of narrow complex SVT suggestive of a reentrant arrhythmia. He was placed on diltiazem because he was still not taking in any oral medications and once he again was on p.o. medicines to restart his metoprolol. The diltiazem drip was controlling his rate quite well. The patient was placed on TPN after surgery. The patient had minimal output after surgery from his colostomy bag. Due to the patient's diagnosis of metastatic colonic adenocarcinoma, palliative care was also involved in the patient's care and they will follow him on an outpatient basis as well. child protective services specialist was consulted for rehab placement. The patient's p.o. intake was slow to advance. He was slowly weaned off his TPN. Patient did advance his diet to a GI soft. His ileostomy output improved so much that they considered putting him on Imodium. The family decided against inpatient rehab. The is an ex nurse and she would like to take him home as well as care for him. The patient did get off his TPN. He was tolerating a GI soft diet. He will be discharged home today with home health as well as DME with a hospital bed, bedside commode, and a front wheel walker, as well as palliative care continuing to follow him. Patient will follow up with Dr. Yoon for palliative chemotherapy. He will follow up with Dr. Holland Funes in 1 week. At 1 point the patient did throughout his stay have peritonitis secondary to his perforated sigmoid colon. Again, infectious disease, Dr. Selvin Denney, was following and the patient was continued on IV antibiotics. Physical therapy was also consulted to work with the patient. Patient was able to come off all of his IV antibiotics. The patient is appropriate for discharge home today with home health. VITAL SIGNS: At the time of discharge temperature is 97.8 degrees, heart rate 89, respirations 16, blood pressure 137/82, O2 is 96% on room air. DISCHARGE MEDICINES: 1. Aspirin 81 mg p.o. daily. 2. Crestor 20 mg p.o. daily. 3. Ultram 50 mg p.o. q.6 hours p.r.n. pain. 4. Levemir 35 units subcutaneously daily. 5. Toprol-XL 25 mg p.o. daily. FOLLOWUP: Patient is being discharged home with home health services as well as DME with a hospital bed, bedside commode, and a front wheel walker. He will follow up with his primary care physician, Dr. Celena Nichols, in 2 weeks. He will follow up with Dr. Kayla Yoon in 1 week, as well as Dr. Holland Funes in 1 week. The patient is being followed by [facility] out of [place] and [facility] for DM. The patient can return to the ED for any worsening of symptoms. He will continue to be followed by palliative care on an outpatient basis. DISCHARGE TIME: Greater than 30 minutes. Dictated by TIARRA Hallman for Rosa Elena Simental MD
== END 2016-06-11 14:16 | disposition home health service (06) | DRG 329 ==
LOC: ED 14:46 → ICU 05-20 00:01 → 4N 05-26 22:50
PROVIDERS: ATTEND Internal Medicine
PROC: 0DTE0ZZ Resection of Large Intestine, Open Approach (ICD-10-PCS; principal; 2016-05-20 07:45)
PROC: 0D1B0Z4 Bypass Ileum to Cutaneous, Open Approach (ICD-10-PCS; 2016-05-20 07:45)
PROC: 0FB00ZX Excision of Liver, Open Approach, Diagnostic (ICD-10-PCS; 2016-05-20 07:45)
PROC: 3E0536Z Introduction of Nutritional Substance into Peripheral Artery, Percutaneous Approach (ICD-10-PCS; 2016-05-22)
PROC: 02HV33Z Insertion of Infusion Device into Superior Vena Cava, Percutaneous Approach (ICD-10-PCS; 2016-05-22)
DX: C18.7 Malignant neoplasm of sigmoid colon (principal); K63.1 Perforation of intestine (nontraumatic); K65.1 Peritoneal abscess; E43 Unspecified severe protein-calorie malnutrition; C78.7 Secondary malignant neoplasm of liver and intrahepatic bile duct; E11.51 Type 2 diabetes mellitus with diabetic peripheral angiopathy without gangrene; I47.1 Supraventricular tachycardia; E87.1 Hypo-osmolality and hyponatremia; K91.89 Other postprocedural complications and disorders of digestive system; K56.7 Ileus, unspecified; T81.31XA Disruption of external operation (surgical) wound, not elsewhere classified, initial encounter; E11.65 Type 2 diabetes mellitus with hyperglycemia; E83.39 Other disorders of phosphorus metabolism; I10 Essential (primary) hypertension; I25.10 Atherosclerotic heart disease of native coronary artery without angina pectoris; K21.9 Gastro-esophageal reflux disease without esophagitis; M19.90 Unspecified osteoarthritis, unspecified site; E78.5 Hyperlipidemia, unspecified; E66.9 Obesity, unspecified; E87.6 Hypokalemia; N50.89 Other specified disorders of the male genital organs; R42 Dizziness and giddiness; T40.2X5A Adverse effect of other opioids, initial encounter; I25.2 Old myocardial infarction; Z87.891 Personal history of nicotine dependence; Z95.5 Presence of coronary angioplasty implant and graft; Z95.1 Presence of aortocoronary bypass graft; Z79.899 Other long term (current) drug therapy; Z80.42 Family history of malignant neoplasm of prostate; Z80.1 Family history of malignant neoplasm of trachea, bronchus and lung; Z83.3 Family history of diabetes mellitus; Z79.82 Long term (current) use of aspirin; Z68.30 Body mass index [BMI] 30.0-30.9, adult
CPT/HCPCS: 36569; 71010; 74000; 74022; 74177; 74178; 80048; 80053; 80069; 80076; 80202; 81001; 82009; 82150; 82378; 82465; 82550; 82805; 82948; 83036; 83605; 83690; 83735; 84100; 84134; 84443; 84450; 84478; 84484; 85025; 85027; 85610; 85730; 86850; 86900; 86901; 87040; 88307; 88309; 88313; 93005; 93010; 94799; 96365; 96368; 96375; 96376; C8929; C9113; J0131; J0330; J1644; J1815; J2185; J2270; J2405; J2543; J3010; J3370; J3475; J3480; J7030; J7040; J7050; J7120; Q9967; 97110-GP; 97116-GP; 97530-GP; J2710; S0030; S0164

== ENCOUNTER 2016-09-11 09:44 | Inpatient (IN) ==
--- NOTE | 2016-09-11 10:25 | EKG Report ---
Test Performed on : 09/11/2016 09:47:16 AM Test Reason : ams Blood Pressure : / mmHG Vent. Rate : 088 BPM Atrial Rate : 088 BPM P-R Int : 164 ms QRS Dur : 078 ms QT Int : 354 ms P-R-T Axes : 060 037 070 degrees QTc Int : 428 ms Normal sinus rhythm. Nonspecific T wave abnormality Abnormal ECG When compared with ECG of 29-AUG-2016 14:39, Nonspecific T wave abnormality now evident in Inferior leads Nonspecific T wave abnormality, worse in Lateral leads Unconfirmed Result
[2016-09-11 10:34] LABS: URINE CULTURE NEEDED? NO; URINE MICRO REVIEW NEEDED? NO; URINE SOURCE CLEAN CATCH
[2016-09-11 10:35] LABS: MANUAL DIFF NEEDED? NO
--- NOTE | 2016-09-11 10:38 | Diag Imaging Result Doc PS360 ---
EXAM: CHEST-PORTABLE HISTORY: AMS TECHNIQUE: Portable upright AP COMPARISON: 09/03/2016 FINDINGS: There are sternal wires. No change in the right jugular portacatheter. No pneumothorax. The lungs are well expanded. The heart is not enlarged. The vessels are not distended. No pneumonia. No pleural effusions identified. IMPRESSION: Negative chest. Electronically signed by Yovanny Barger 09/11/2016 10:36 AM
[2016-09-11 10:40] LABS: BASO% 0.1 % (0.0-0.8); EOS# 0.01 X1000 (0.0-0.7); EOS% 0.1 % (0.0-10.0); HEMATOCRIT 41.7 % (42.0-52.0); HEMOGLOBIN 14.5 g/dL (14.0-18.0); IMM GRAN# 0.02 X1000 (0.0-0.04); IMM GRAN% 0.2 % (0.0-0.5); LYMPH# 1.16 X1000 (1.2-3.4); LYMPH% 10.1 % (20.5-51.1); MCH 27.7 PG (27-31); MCHC 34.8 g/dL (33-37); MCV 79.7 FL (81-99); MONO# 0.88 X1000 (0.11-0.59); MONO% 7.6 % (1.7-9.3); MPV 10.4 FL (7.4-10.4); NEUT% 81.9 % (42.2-75.2); PLT 303 X1000 (130-400); RBC 5.23 XMIL (4.7-6.1)
[2016-09-11 10:47] LABS: BILIRUBIN URINE NEGATIVE (NEGATIVE); BLOOD URINE NEGATIVE (NEGATIVE); COLOR YELLOW; GLUCOSE URINE 300 mg/dL (NEGATIVE); LEUKOCYTES URINE NEGATIVE (NEGATIVE); NITRITE URINE NEGATIVE (NEGATIVE); PH URINE 5.5; PROTEIN URINE TRACE mg/dL (NEGATIVE); SP GRAVITY URINE 1.017; TURBIDITY URINE CLEAR (CLEAR); UR EPITHELIAL CELLS <10 /HPF (<10); URINE BACTERIA NEGATIVE /HPF; URINE WBC <10 /HPF (<10); UROBILINOGEN URINE NORMAL (NORMAL)
[2016-09-11 10:50] LABS: UR AMPHETAMINES QUAL NONE DETECTED (NONE DETECT); UR BARBITUATES QUAL NONE DETECTED (NONE DETECT); UR BENZODIAZEPIN QUAL NONE DETECTED (NONE DETECT); UR CANNABINOIDS QUAL NONE DETECTED (NONE DETECT); UR COCAINE QUAL NONE DETECTED (NONE DETECT); UR METHADONE QUAL NONE DETECTED (NONE DETECT); UR OPIATES QUAL NONE DETECTED (NONE DETECT); UR OXYCODONE QUAL NONE DETECTED (NONE DETECT); UR PCP QUAL NONE DETECTED (NONE DETECT)
[2016-09-11 10:55] LABS: AGAP 16; ALBUMIN 4.3 g/dL (3.5-5.0); ALKALINE PHOSPHATASE 71 U/L (32-122); BUN 16 mg/dL (8-22); CALCIUM 10.5 mg/dL (8.8-10.2); CHLORIDE 95 mmol/L (98-107); CK PROFILE 43 U/L (24-204); COSMO 278; GOT 22 U/L (10-34); GPT 37 U/L (10-44); POTASSIUM 4.1 mmol/L (3.5-5.1); SODIUM 136 mmol/L (136-145); TCO2 25 mmol/L (25-35); TOTAL BILIRUBIN 0.51 mg/dL (0.20-1.00); TOTAL PROTEIN 8.5 g/dL (6.3-8.3)
--- NOTE | 2016-09-11 11:08 | ED EKG INTERP ---
This chart was entered by Ingrid Sun Scribe, acting as scribe for Dameon Johnson MD. EKG Interpretation - EKG Time of EKG reading by physician:: 09:47 EKG Read and Signed by:: Dameon Johnson EKG Interpretation (*Must complete 3 of following elements*): Abnormal Rate: 88 (nonspecific T wave abnormality ) Rhythm: NSR This chart was documented by the indicated scribe, (Ingrid Sun Scribe) and accurately reflects the services I performed and decisions made by me, Dameon Johnson MD, as attested by the provider's signature.
--- NOTE | 2016-09-11 11:08 | PROVIDER DOCUMENTATION ---
This chart was entered by Ingrid Sun Scribe, acting as scribe for Dameon Johnson MD. HPI-General Adult - General Chief Complaint: Altered Mental Status Stated Complaint: AMS Time Seen by Provider: 09/11/16 09:54 Source: patient Allergies/Adverse Reactions: Patient Allergies Allergy/AdvReac Type Severity Reaction Status Date / Time acetaminophen [From Lortab] Allergy Unknown Verified 09/11/16 10:01 hydrocodone bitartrate * Allergy Unknown Verified 09/11/16 10:01 [From Lortab] codeine AdvReac NAUSEA Verified 09/11/16 10:01 Home Medications: Home Medication List Medication Instructions Recorded Confirmed Last Taken Type Aspirin [Aspir-Low] 81 mg PO DAILY 05/19/16 09/11/16 09/08/16 09:00 History ATORVAstatin [Lipitor] 40 mg PO QHS 08/29/16 09/11/16 09/02/16 History Cyanocobalamin (Vitamin B-12) 1,000 mcg PO DAILY 08/29/16 09/11/16 09/02/16 History [Cyanocobalamin] Famotidine 20 mg PO BID 08/29/16 09/11/16 09/10/16 09:00 History Megestrol Acetate [Megace] 2 tsp PO DAILY 08/29/16 09/11/16 09/02/16 11:00 History Ondansetron [Zofran Odt] 8 mg PO PRN PRN 08/29/16 09/11/16 09/10/16 12:00 History Metoprolol [Lopressor] 25 mg PO DAILY 09/03/16 09/11/16 09/10/16 09:00 History Tramadol [Ultram] 50 mg PO Q4H PRN PRN #30 tablet 09/03/16 09/11/16 Unknown Rx - History of Present Illness -Gen Adult Nature of Presenting Problems: Pt is a 71 year old male who came to the ED with a cc of AMS after chemo yesterday. Pt was unable to walk after chemo and became nauseous and was unable to eat. Pt still has not eaten or gotten up to walk around. Location of Pain/Injury: reports: none Pain Radiation: reports: no radiation Quality of Pain: reports: none Onset/Duration: reports: 24 hours ago Timing: reports: still present Context/Activities at Onset: reports: none Associated Symptoms: reports: loss of appetite, nausea, weakness, trouble walking. denies: vomiting Similar Symptoms Previously?: No Recently seen or treated by another doctor?: Yes Review of Systems - Adult - REVIEW OF SYSTEMS - ADULT Constitutional: denies: chills, fever Eyes: reports: no symptoms reported Ears, Nose, Mouth & Throat: reports: no symptoms reported Cardiovascular: denies: chest pain, orthopnea Respiratory: reports: no symptoms reported Gastrointestinal: reports: nausea. denies: abdominal pain, diarrhea, vomiting Genitourinary: reports: no symptoms reported Musculoskeletal: reports: no symptoms reported Integumentary: reports: no symptoms reported Neurological: reports: other (general weakness). denies: ataxia, numbness Psychiatric: reports: no symptoms reported Endocrine: reports: no symptoms reported Hematologic/Lymphatic: reports: no symptoms reported Allergic/Immunologic: reports: no symptoms reported All Other Systems: Reviewed and Negative Past History - Adult - PAST MEDICAL HISTORY-ADULT Review of Records: reports: Nursing Assessment Review Major Childhood Illnesses: reports: denies history Cardiovascular: reports: CAD, HTN, hyperlipidemia Respiratory: reports: denies history Gastrointestinal: reports: denies history Obstetrical/Gynecological: reports: denies history Genitourinary: reports: denies history Musculoskeletal: reports: denies history Neurological: reports: denies history Endocrine/Immune: reports: Diabetes Other Conditions: reports: denies history - PRIOR SURGERIES/PROCEDURES Surgical/Procedure History: reports: CABG - PRIOR HOSPITALIZATIONS Prior Hospitalizations: reports: none - IMMUNIZATION STATUS Childhood Immunizations: See Nurse Assessment Flu Vaccine: See Nurse Assessment - FAMILY HISTORY Family History: reviewed, not pertinent Physical Exam-General - PHYSICAL EXAM-ADULT Initial Vital Signs Reviewed: Yes - CONSTITUTIONAL General Appearance: alert, other (AMS) - EYES Eyes: PERRL/EOMI, pink conjunctivae - HEAD, EARS, NOSE, MOUTH & THROAT HENMT: normocephalic/atraumatic, moist mucous membranes - NECK Neck: non-tender - RESPIRATORY Respiratory: chest non-tender, lungs clear - CARDIOVASCULAR Cardiovascular: normal peripheral pulses, regular rate, rhythm - GASTROINTESTINAL (ABDOMEN) Abdominal Exam: normal bowel sounds, non tender, soft - MUSCULOSKELETAL Back Exam: normal inspection Extremity: other (weakness) - SKIN Integumentary: normal color, normal turgor - NEUROLOGIC Neurologic: abnormal gait - PSYCHIATRIC Psych/Mental Status: oriented x 3 Progress - PLAN OF CARE/RESULTS Progress/Plan/Lab Results: Vital Signs - 8 hr 09/11/16 09:44 Temperature 98.2 F Pulse Rate 93 H Respiratory Rate 18 Blood Pressure 151/97 O2 Sat by Pulse Oximetry 99 Laboratory Results - last 24 hr 09/11/16 09/11/16 10:04 10:15 WBC 11.53 H RBC 5.23 Hgb 14.5 Hct 41.7 L MCV 79.7 L MCH 27.7 MCHC 34.8 RDW Std Deviation 14.2 Plt Count 303 MPV 10.4 Immature Gran % (Auto) 0.2 Neut % (Auto) 81.9 H Lymph % (Auto) 10.[address] [place] % (Auto) 7.6 Eos % (Auto) 0.1 Baso % (Auto) 0.1 Immature Gran # (Auto) 0.02 Neut # (Auto) 9.45 H Lymph # (Auto) 1.[address] [place] # (Auto) 0.88 H Eos # (Auto) 0.01 Baso # (Auto) 0.01 Urine Source CLEAN CATCH Urine Color YELLOW Urine Turbidity CLEAR Urine pH 5.5 Ur Specific [place] 1.017 Urine Protein TRACE A Ur Glucose (Stick) 300 A Ur Ketones (Stick) NEGATIVE Urine Blood NEGATIVE Urine Nitrite NEGATIVE Urine Bilirubin NEGATIVE Urobilinogen Dipstick NORMAL Urine Leukocytes NEGATIVE Urine WBC (Auto) <10 Urine RBC (Auto) 10-20 A U Epithel Cells (Auto) <10 Urine Bacteria (Auto) NEGATIVE Orders Category Date Time Status Cardiac Monitoring DIRECTED Care 09/11/16 10:19 Active FSBS [Finger Stick Blood Sugar (ED)] DIRECTED Care 09/11/16 09:48 Active Finger Stick Blood Sugar (ED) DIRECTED Care 09/11/16 10:19 Active Oxygen Therapy- ED Nursing DIRECTED Care 09/11/16 10:19 Active Saline Loc NOW Care 09/11/16 10:19 Active CHEST-PORTABLE [RAD] Stat Exams 09/11/16 10:19 Completed HEAD W/O CONTRAST [CT] Stat Exams 09/11/16 10:24 Ordered CBC WITH ELECTRONIC DIFF [HEME] Stat Lab 09/11/16 10:15 Completed CK PROFILE [SP CHEM] Stat Lab 09/11/16 10:15 Received COMPREHENSIVE METABOLIC PANEL [CHEM] Stat Lab 09/11/16 10:15 Received LACTATE, PLASMA [CHEM] Stat Lab 09/11/16 10:25 Received TROPONIN T Stat Lab 09/11/16 10:15 Received URINALYSIS W/POSS RFLX CULT-1 [URINALYSIS] Stat Lab 09/11/16 10:04 Completed URINE DRUG SCREEN Stat Lab 09/11/16 10:04 Received Pulse Oximetry Stat Oth 09/11/16 10:19 Active EKG [EKG] Stat Ther 09/11/16 09:47 Draft Result Diagrams: 09/11/16 10:15 09/11/16 10:15 - XRAY 1 XRAY Study: Chest (negative chest.) - CT/MRI 1 CT Study: Head (atrophic changes w/ ventriculomegaly. no visible acute abnormality. no hemorrhage or mass effect.) - CONSULTS/PCP/HOSPITALIST Notification #1 *Consult/PCP/Hospitalist*: Dr Rocha Time Discussed: 12:06 Reason/Comments: adnit for colon cancer and decision of hospice of [facility] Departure - Departure Date of Disposition Decision: 09/11/16 Time of Disposition Decision: 12:07 DIAGNOSIS: Colon cancer metastasized to liver Dementia Qualifiers: Dementia type: vascular dementia Dementia behavioral disturbance: without behavioral disturbance Qualified Code(s): F01.50 - Vascular dementia without behavioral disturbance Disposition: ADMITTED INPATIENT 09 Certified Medical Emergency: Emergent Condition: Fair Referrals and Follow-Ups: None,PCP [Primary Care Provider] - - Critical Care Note This patient required my direct & personal management of CC.: No This chart was documented by the indicated scribe, (Ingrid Sun Scribe) and accurately reflects the services I performed and decisions made by me, Dameon Johnson MD, as attested by the provider's signature.
--- NOTE | 2016-09-11 11:21 | Diag Imaging Result Doc PS360 ---
EXAM: HEAD W/O CONTRAST - 09/11/2016 HISTORY: altered mental status after chemo TECHNIQUE: Dose reduction protocol COMPARISON: None. FINDINGS: There is some generalized atrophic changes. There is ventriculomegaly which may relate to the atrophic changes. There are mild chronic appearing microvascular ischemic changes. There is no indication of recent infarct, although acute infarcts may not be immediately visible. There is no evidence of hemorrhage, mass effect, or midline shift. IMPRESSION: Atrophic changes with ventriculomegaly. No visible acute abnormality. No hemorrhage or mass effect. Electronically signed by Anatoly Velez 09/11/2016 11:18 AM
--- NOTE | 2016-09-11 13:04 | HISTORY AND PHYSICAL ---
HISTORY OF PRESENT ILLNESS: This is a 71-year-old, who is a patient followed by Dr. Kayla Yoon diagnosed with colon cancer and had a complete colon resection in April. He had his first chemotherapy I think last week, and he has been very weak and there has been some confusion, having a hard time standing and walking. Denied fever. Really no nausea. PAST MEDICAL HISTORY: 1. Diabetes mellitus type 2. 2. Hypertension. 3. Coronary artery disease status post CABG bypass. He has had some stents placed as well. 4. Hypercholesterolemia. PAST SURGICAL HISTORY: 1. Cardiac stent placed in 2003. 2. Coronary artery bypass graft in 2011. 3. Left foot surgery in 2008. 4. Right carotid endarterectomy. 5. Bilateral cataract surgery. SOCIAL HISTORY: Former smoker. Reports he smoked 1 pack per day for approximately 27 years. He quit smoking about 28 years ago. The patient did report he did occasionally drink alcohol in the past, although really has not drank much alcohol at all in 20 years. Denies any illicit drug use. Is . One son. 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 Was in the [employer] for a couple years, including [place]. FAMILY HISTORY: Positive for prostate cancer in his father. Lung cancer in his mother. Lung cancer in brother. Had a sister with a history of dementia. Also reports all siblings have diabetes mellitus as well. ALLERGIES: He reports allergies to hydrocodone and codeine. He is not taking pain medication at present time. MEDICATIONS: Medications I think he is on at the present time is his metoprolol. I am not sure if he is still taking aspirin 81 mg a day. He was taking Colace 100 mg daily, and I think some Crestor 20 mg a day and omega-3 fatty acids. REVIEW OF SYSTEMS: General: He has not been eating well. Not much appetite. Not sure if he has lost some weight, but I suspect he has. HEENT: Unremarkable. Respiratory: No increased work of breathing or dyspnea. Cardiovascular: No chest pain or tachy palpitation. GI and : There has been some liquid stool coming through the colostomy bag. Endocrinologic/hematologic: No significant history. PHYSICAL EXAMINATION: VITAL SIGNS: Temperature 98.2 degrees, pulse 87, respirations 16, blood pressure 134/80. EYES: Pupils are equal and round. LUNGS: Clear in all lung velasquez. CARDIOVASCULAR EXAM: Regular rhythm and rate without murmur or S3. ABDOMEN: Soft. SKIN: Warm and dry. Weight 200 pounds. LABS AND X-RAYS: White count 11,530, hematocrit 41, platelet count 303,000. Sodium 136, potassium 4.1, chloride 95, BUN 16, creatinine 1.0. Liver functions unremarkable. Alkaline phosphatase 71, albumin 4.3. Urinalysis unremarkable. Toxicology was negative. Urine drug screen negative. Chest x-ray: Negative chest. Head CT: Atrophic changes with ventriculomegaly. No visible acute abnormality. No hemorrhage or mass effect. ASSESSMENT AND PLAN: 1. General weakness. He had his first chemotherapy. Has colon cancer with metastasis. Electrolytes looked pretty unremarkable. Renal function looks pretty good. 2. Apparently had some confusion, a little bit of encephalopathy. I do not see any sign of active infection at this time. 3. Metastatic sigmoid cancer perforation status post exploratory laparoscopy and total colectomy. Has liver metastasis. He had some peritonitis and perforation of sigmoid colon. They brought him in the hospital on 05/20. 4. Paroxysmal atrial fibrillation, aware. 5. Hypertension. 6. Hyperlipidemia. 7. Coronary artery disease status post coronary artery bypass graft. GENERAL SURGEON: Dr. Funes. ONCOLOGIST: Dr. Yoon. cc: Santy Rocha MD
[2016-09-11] MEDS ORDERED: ZOFRAN IV PRN (18:16)
[2016-09-11] MEDS ORDERED: TYLENOL PO PRN (18:16)
[2016-09-11] MEDS: NS 1,000 ML IV SCH (19:50)
[2016-09-11] MEDS: LIPITOR PO SCH (21:00)
[2016-09-11] MEDS: HUMULIN R SUBQ SCH ×2 (21:00→21:33)
[2016-09-11] MEDS: PRILOSEC PO SCH (21:35)
[2016-09-12 06:41] LABS: MANUAL DIFF NEEDED? NO
[2016-09-12 06:50] LABS: BASO% 0.2 % (0.0-0.8); EOS# 0.03 X1000 (0.0-0.7); EOS% 0.3 % (0.0-10.0); HEMATOCRIT 36.9 % (42.0-52.0); IMM GRAN# 0.03 X1000 (0.0-0.04); IMM GRAN% 0.3 % (0.0-0.5); LYMPH# 1.66 X1000 (1.2-3.4); LYMPH% 14.9 % (20.5-51.1); MCH 28.7 PG (27-31); MCHC 35.2 g/dL (33-37); MCV 81.5 FL (81-99); MONO# 0.92 X1000 (0.11-0.59); MONO% 8.3 % (1.7-9.3); MPV 10.1 FL (7.4-10.4); PLT 237 X1000 (130-400); RBC 4.53 XMIL (4.7-6.1)
[2016-09-12 06:58] LABS: INR 1.03; PROTIME 10.8 Seconds (9.2-11.7); PTT 26.3 Seconds (22.0-36.0)
[2016-09-12 07:05] LABS: AGAP 13; ALBUMIN 3.7 g/dL (3.5-5.0); ALKALINE PHOSPHATASE 57 U/L (32-122); BUN 19 mg/dL (8-22); CALCIUM 9.5 mg/dL (8.8-10.2); CHLORIDE 101 mmol/L (98-107); COSMO 278; GOT 22 U/L (10-34); GPT 32 U/L (10-44); MAGNESIUM 1.8 mg/dL (1.5-2.7); POTASSIUM 3.6 mmol/L (3.5-5.1); SODIUM 137 mmol/L (136-145); TCO2 23 mmol/L (25-35); TOTAL BILIRUBIN 0.37 mg/dL (0.20-1.00); TOTAL PROTEIN 7.3 g/dL (6.3-8.3)
[2016-09-12] MEDS: HUMULIN R SUBQ SCH ×4 (08:32→22:27)
[2016-09-12] MEDS: NS 1,000 ML IV SCH ×2 (08:46→19:38)
[2016-09-12] MEDS ORDERED: LOPRESSOR PO SCH (09:00)
[2016-09-12] MEDS: PRILOSEC PO SCH ×2 (09:30→20:37)
[2016-09-12] MEDS: VITAMIN B-12 PO SCH (09:30)
[2016-09-12] MEDS: ASPIRIN EC PO SCH (09:30)
[2016-09-12] MEDS: MEGACE LIQUID PO SCH (09:30)
[2016-09-12] MEDS ORDERED: HEPARIN ONE (13:04)
--- NOTE | 2016-09-12 17:24 | PROGRESS NOTE ---
DATE: 09/12/2016 This is a 71-year-old patient of Dr. Kayla Yoon diagnosed with colon cancer. Had complete colon section in April. Had his 1st chemotherapy last week and in the last couple days he has been very weak. He has had some confusion. Concerned that he is not able to walk or stand, a great deal of weakness. OTHER PAST MEDICAL HISTORY: 1. Diabetes mellitus type 2. 2. Hypertension. 3. Coronary artery disease status post CABG. He has had some stents placed as well. 4. Hypercholesterolemia. The patient states he feels a little better today. He is still very weak. Cannot support his weight and very unsteady on his feet. Mental status seems to improved. The has not noticed as much confusion. Remains afebrile. Pulse 68, respirations 20, blood pressure 120/77. Lungs: Are clear in all lung velasquez. Cardiovascular: Regular rhythm and rate without murmur or S3. Abdomen: Soft. Skin: Is warm and dry. Blood sugar 123, 164. REVIEW OF LAB: Hematocrit stable at 41. Creatinine 0.9. Liver enzymes were normal. Blood sugar was 201 and 123. ProTime was 10.8. Urine drug screen negative. He had 10-20 red blood cells in the urine, less than 10 white blood cells, no bacteria. His chest x-ray was unremarkable and negative chest. ASSESSMENT AND PLAN: Profound weakness in his legs. I think there is some question on whether they want to pursue hospice. Dr. Kayla Yoon is the oncologist. We will see if there is a hospice consult. Right now I have him on omeprazole 40 mg b.i.d., normal saline. He was a little bit dry so he is getting normal saline at 85 mL an hour. Given him Megace 400 mg daily for his appetite, Lipitor 40 mg a day. He is getting vitamin B12 1000 mcg daily as well. Aspirin 81 mg a day. cc: Santy Rocha MD
[2016-09-12] MEDS: LIPITOR PO SCH (20:37)
[2016-09-13] MEDS: HUMULIN R SUBQ SCH ×3 (06:12→16:42)
[2016-09-13] MEDS ORDERED: APRESOLINE IV PRN (07:57)
[2016-09-13] MEDS: NS 1,000 ML IV SCH ×2 (08:23→17:36)
[2016-09-13] MEDS ORDERED: LOPRESSOR PO SCH (09:00)
--- NOTE | 2016-09-13 10:10 | CONSULTATION ---
DATE OF CONSULTATION: 09/12/2016 REQUESTING PHYSICIAN: Dr. Rocha. REASON FOR CONSULTATION: Metastatic colon cancer, patient known. HISTORY OF PRESENT ILLNESS: Mr. Kelly is a 71-year-old, male, who is known to us as we are currently treating him for metastatic colorectal cancer. The patient was initially seen back in April at [facility] when he presented to the emergency department complaining of abdominal pain. He was found to have a colon mass at that time with suspected perforation. He underwent exploratory laparotomy with complete colectomy, as well as a liver biopsy. The patient had a prolonged hospital course after surgery and was not even discharged until a month later in May of 2016. Then, due to continuing issues, the patient was unable to present for the possibility of treatment until August of 2016. Patient was seen in our office on 09/10/2016, and he was started on palliative chemotherapy with FOLFOX-4 and Vectibix. He was able to complete treatment, but then the reports that he began to have weakness and difficulty with ambulating starting the night of September 10. Then on the morning of 09/11/2016, the called to report that the patient was unable to walk or speak and was not eating. She was then told to bring him to the emergency department. He was evaluated there. He has subsequently been admitted. The patient is now resting comfortably with his at bedside. PAST MEDICAL HISTORY: 1. Coronary artery disease. 2. Hypertension. 3. Diabetes. 4. Hyperlipidemia. 5. Metastatic colorectal cancer. 6. Coronary artery disease. 7. Cataracts. SURGICAL HISTORY: 1. Coronary artery bypass grafting done in 2011. 2. Carotid stents in 2011. 3. Coronary stents in 2003 and 2008. 4. Left foot surgery 2008. 5. Right-sided carotid enterectomy. 6. Bilateral cataracts surgeries. SOCIAL HISTORY: Patient is . He lives with his . His is supportive. He is a former smoker with a 30 pack-year history, but discontinued smoking back in 1987. He has been drinking alcohol socially, but none recently. 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 FAMILY HISTORY: His mother is diseased of ovarian cancer at 80 years old. His father is of prostate cancer at 80 years old. His brother is at 74 with lung cancer. REVIEW OF SYSTEMS: As per the HPI. All else is negative and noncontributory. PHYSICAL EXAMINATION: Vital Signs: Temp 97.7, heart rate 75, respirations 20, blood pressure 144/80, O2 saturations 99% on room air. General: male lying in hospital bed. He is in no acute distress. He does not seem agitated. His eyes are open and he is talking and getting ready to eat his lunch. Head: Normocephalic, atraumatic. Eyes: Pupils equal, round and reactive. Ears, nose, throat, neck, and mouth: Oral mucosa appears to be normal. Neck: Trachea is midline. Cardiovascular: S1, S2 heard. Regular rate and rhythm at this time. Respiratory: Chest is clear to auscultation bilaterally. Normal respiratory effort. Gastrointestinal: Abdomen is soft and nondistended. He does have an ostomy in place that is functioning. No signs of infection. Musculoskeletal: No obvious bony abnormalities. Patient has a port in place in the right chest wall. Extremities: No swelling or edema noted. Neurologic: Patient is alert. He does not seem oriented. He is not agitated. He is able to follow commands. He often looks at his throughout the interview when questions are asked to see how his responds. LABS AND STUDIES: White blood cells 11.13, hemoglobin 13.0, hematocrit 36.9, platelets 237. Sodium 137, potassium 3.6, chloride 101, CO2 23, BUN 19, creatinine 0.9, glucose 134. Urinalysis is essentially negative. The toxicology screen is negative. Head CT and chest x-ray are both negative. ASSESSMENT AND PLAN: 1. Metastatic colorectal cancer, status post cycle 1, day 1 of FOLFOX and Vectibix. Does not appear that the patient is going to tolerate chemotherapy. This is likely due to his overall performance status. Discussed with the patient and his today considering hospice. They have agreed to meet with hospice, and an order has been placed. We also briefly discussed the options of palliative care. No further systemic treatment is planned at this time. 2. Confusion. The patient's CT of the head was negative for any acute disease. However, it does show him to have atrophic changes with ventriculomegaly. These are chronic in nature. Continue hydration. No obvious source of infection at this time. We will go ahead and do some cultures just to defensively rule out any source of infection. 3. Weakness. The patient plans to participate in physical therapy. The hope is that he will be strong enough to go home with hospice or palliative care. The patient and his do not seem interested in him going to rehabilitation or a care home. 4. Coronary artery disease, aware. Monitor closely. I want to thank you for consulting us on Mr. Kelly while he was at [facility]. Continue to follow along and adjust our treatment plan per his hospital course. Dictated by MONICA Delarosa for Kayla Yoon MD cc: Kayla Yoon MD I have examined the patient, reviewed the chart and agree with the above A/P> We have consulted Hospice for outpatient evaluation. No further treatment planned at this time. Monitor for reversible etiologies of his confusion and weakness. Kayla Yoon MD [facility]
[2016-09-13] MEDS: ASPIRIN EC PO SCH (10:58)
[2016-09-13] MEDS: VITAMIN B-12 PO SCH (10:58)
[2016-09-13] MEDS: PRILOSEC PO SCH (10:58)
[2016-09-13] MEDS: MEGACE LIQUID PO SCH (10:58)
[2016-09-13 15:12] VITALS: BP 148/78
--- NOTE | 2016-09-13 18:37 | DISCHARGE SUMMARY ---
ADMISSION DATE: 09/11/2016 DISCHARGE DATE: 09/13/2016 HOSPITAL COURSE: This is a 71-year-old followed by Dr. Kayla Yoon diagnosis with colon cancer, had a complete colon resection April, had his 1st chemotherapy I think last week. He has been very weak and some confusion, hard time standing and walking. Denied fever. No nausea. PAST MEDICAL HISTORY: 1. Diabetes mellitus type 2. 2. Hypertension. 3. Coronary artery disease status post CABG. He has had some stents placed as well. 4. Hypercholesterolemia. PAST SURGICAL HISTORY: 1. Cardiac stent placed in 2003. 2. Coronary artery bypass graft in 2011. 3. Left foot surgery in 2008. 4. Right carotid endarterectomy. 5. Bilateral cataract surgery. The patient was admitted because of just complaining of general weakness, his balance was poor, not able to bear weight well. In particular, his legs were weak and wanted to come in. I think Dr. Yoon was considering whether he needs to pursue hospice. He had did have some confusion. We know he has metastatic sigmoid cancer perforation, status post exploratory laparotomy and total colectomy. They found liver metastasis. He had some peritonitis, perforation of sigmoid colon at that time. That was when he was in the hospital on 05/20. He has a history of paroxysmal atrial fibrillation. Rate appears to be well controlled, in sinus rhythm. Blood pressures appear to be well controlled with no sign of ongoing active cardiac ischemia. And he just started his chemotherapy. He showed improvement and he did discuss hospice. He really does not want that option at this point, he wants to go home. So we will discharge him home. DISCHARGE MEDICATIONS: Take Tylenol as needed, aspirin 81 mg a day, Lipitor 40 mg at bedtime, vitamin B12 1000 mcg daily, hydralazine we will stop, he is getting that intravenously. Lopressor 25 mg b.i.d., Prilosec 40 mg b.i.d. FOLLOWUP: Follow up with Dr. Yoon and follow up with his primary care. He does not have primary care physician right now. cc: MD Kayla Carvajal MD
[2016-09-13] MEDS ORDERED: HEPARIN ONE (18:42)
== END 2016-09-13 19:02 | disposition home or self-care (01) ==
LOC: ED 09:44 → EDIPHOLD 17:34 → 3N 09-12 09:59
PROVIDERS: ATTEND Emergency Medicine